=== PATIENT | male | born 1980 | race American Indian/Alaskan Native ===

== ENCOUNTER 2019-08-15 14:29 | Inpatient (IN) | payer OTHER ==
[2019-08-15 15:35] LABS: Basophils % (Auto) 0.1 % (0.0-1.8); Hemoglobin 15.4 gm/dl (11.8-15.2); Lymphocytes # (Auto) 0.8 K/mm3 (1.2-5.4); Lymphocytes % (Auto) 6.3 % (13.4-35.0); Mean Corpuscular HGB Conc 33 % (32-34); Mean Corpuscular Volume 92 fl (84-94); Monocytes # (Auto) 0.7 K/mm3 (0.0-0.8); Monocytes % (Auto) 5.5 % (0.0-7.3); Platelet Count 242 K/mm3 (140-440); Red Blood Count 5.12 M/mm3 (3.65-5.03); Red Cell Distribution Width 15.5 % (13.2-15.2)
[2019-08-15 15:49] LABS: Calcium 8.6 mg/dL (8.4-10.2)
[2019-08-15] MEDS ORDERED: SODIUM CHLORIDE 0.9% 1000 ML IV SOLN IV ONE (16:06)
[2019-08-15] MEDS ORDERED: ONDANSETRON 4 MG/2 ML INJ IV ONE (16:09)
[2019-08-15] MEDS ORDERED: MORPHINE 4 MG/1 ML INJ IV ONE (16:09)
[2019-08-15] MEDS ORDERED: INSULIN REGULAR, HUMAN 100 UNITS/1 ML IV ONE (16:10)
[2019-08-15] MEDS ORDERED: DEXTROSE 50% IN WATER (25GM) 50 ML SYRINGE IV PRN (16:10)
--- NOTE | 2019-08-15 16:20 | Emergency Department Report ---
ED General Adult HPI - General Chief complaint: Abdominal Pain Stated complaint: ABD PAIN Time Seen by Provider: 08/15/19 15:54 Source: patient, RN notes reviewed Mode of arrival: Ambulatory Limitations: No Limitations - History of Present Illness Initial comments: This is a 38-year-old gentleman. This patient is not known to this provider previously. He is visiting from [place]. He has a history of hypertension and high cholesterol. No history of abdominal surgeries. He presents to the ER with a complaint of diffuse abdominal pain, abdominal distention, malaise and fatigue. Symptoms started 3-4 days ago. The abdominal pain started in the suprapubic region, then moved the bilateral lower quadrant, epigastric region, and right upper quadrant. He denies headache and neck pain. He has no complaint of chest pain. He endorses abdominal distention, and shortness of breath secondary to abdominal distention. He also endorses hematuria. He denies testicular pain. He denies focal extremity weakness and/or numbness. He's never had anything like this before as far as he is aware. -: Gradual Location: abdomen Radiation: abdomen Quality: aching Consistency: constant Improves with: medication, rest Worsens with: movement - Related Data Allergies Allergy/AdvReac Type Severity Reaction Status Date / Time No Known Allergies Allergy Unverified 08/15/19 14:45 ED Review of Systems ROS: Stated complaint: ABD PAIN Other details as noted in HPI Constitutional: malaise, weakness Eyes: denies: eye discharge ENT: denies: congestion Respiratory: shortness of breath Cardiovascular: denies: syncope Gastrointestinal: abdominal pain, other Genitourinary: denies: dysuria, testicular pain Musculoskeletal: denies: back pain Skin: denies: lesions Neurological: weakness Psychiatric: anxiety Hematological/Lymphatic: denies: easy bleeding ED Past Medical Hx - Past Medical History Hx Hypertension: Yes - Surgical History Past Surgical History?: Yes Additional Surgical History: back surgery x 2 - Social History Smoking Status: Never Smoker Substance Use Type: Alcohol ED Physical Exam - General Limitations: No Limitations General appearance: alert, anxious, obese - Head Head exam: Present: atraumatic, normocephalic - Eye Eye exam: Present: normal appearance, EOMI. Absent: nystagmus - ENT ENT exam: Present: normal orophraynx, mucous membranes dry, normal external ear exam - Neck Neck exam: Present: normal inspection, full ROM. Absent: tenderness, meningismus - Respiratory Respiratory exam: Present: normal lung sounds bilaterally. Absent: respiratory distress - Cardiovascular Cardiovascular Exam: Present: normal rhythm, tachycardia, normal heart sounds. Absent: systolic murmur, diastolic murmur, rubs, gallop - GI/Abdominal GI/Abdominal exam: Present: soft, distended, tenderness. Absent: guarding, rebo und, rigid, pulsatile mass - Rectal Rectal exam: Present: deferred - Extremities Exam Extremities exam: Present: normal inspection, full ROM, other (2+ pulses noted in the bilateral upper and lower extremities. The pelvis is stable. There is no long bony tenderness. The muscular compartments are soft. There is no red ness, pus, streaking or erythema.). Absent: pedal edema, calf tenderness - Back Exam Back exam: Present: normal inspection. Absent: tenderness, CVA tenderness (R), CVA tenderness (L), paraspinal tenderness, vertebral tenderness - Neurological Exam Neurological exam: Present: alert, oriented X3, normal gait, other (there is no facial droop. The tongue is midline. Extraocular movements are intact bilaterally. Speaking in full sentences. Hearing is grossly intact. 5 out of 5 strength bilateral upper and lower extremities. Sensation is intact to light touch bilateral upper and lower extremities.). Absent: motor sensory deficit - Psychiatric Psychiatric exam: Present: anxious - Skin Skin exam: Present: warm, dry, intact, normal color. Absent: rash ED Course Vital Signs 08/15/19 14:45 Temperature 98.2 F Pulse Rate 158 H Respiratory 18 Rate Blood Pressure 140/96 O2 Sat by Pulse 97 Oximetry - Reevaluation(s) Reevaluation #1: 08/15/19 16:19 Differential diagnoses, including but not limited to: Cholangitis, pancreatitis, gallstone pancreatitis, diabetic ketoacidosis, renal insufficiency, prerenal azotemia, intra-abdominal sepsis Assessment and plan: 38-year-old gentleman with abdominal pain, distention, tachycardia, found to have renal insufficiency, pancreatitis, diabetic ketoacidosis, an elevated bilirubin. Patient be resuscitated according to the sepsis and DKA pathway. Right upper quadrant ultrasound ordered, noncontrast CT scan of abdomen and pelvis ordered, insulin, fluids, antibiotics ordered. GI consultation is requested, discussed with Dr. Savage repeat ekg pending Reevaluation #2: 08/15/19 17:07 Repeat EKG suggests sinus tachycardia. Reevaluation #3: 08/15/19 18:12 Ultrasound negative for acute findings. CT scan suggests pancreatitis. Fluid is appreciated, consistent with pancreatitis, there is no evidence of necrotizing process. It appears that the patient is also an alcoholic, therefore, his tachycardia may be multifactorial, including secondary to volume depletion, as well as alcohol withdrawal. Gastroenterology on-call is updated with imaging findings. Hospital physician, Dr. Burgess to admit patient to the medical service. ED Medical Decision Making - Lab Data Result diagrams: 08/15/19 15:23 08/15/19 16:15 Vital Signs 08/15/19 14:45 Temperature 98.2 F Pulse Rate 158 H Respiratory 18 Rate Blood Pressure 140/96 O2 Sat by Pulse 97 Oximetry Lab Results 08/15/19 08/15/19 08/15/19 Range/Units 15:23 15:23 15:23 WBC 13.4 H (4.5-11.0) K/mm3 RBC 5.12 H (3.65-5.03) M/mm3 Hgb 15.4 H (11.8-15.2) gm/dl Hct 47.0 H (35.5-45.6) % MCV 92 (84-94) fl MCH 30 (28-32) pg MCHC 33 (32-34) % RDW 15.5 H (13.2-15.2) % Plt Count 242 (140-440) K/mm3 Lymph % (Auto) 6.3 L (13.4-35.0) % [place] % (Auto) 5.5 (0.0-7.3) % Eos % (Auto) 0.0 (0.0-4.3) % Baso % (Auto) 0.1 (0.0-1.8) % Lymph # 0.8 L (1.2-5.4) K/mm3 [place] # 0.7 (0.0-0.8) K/mm3 Eos # 0.0 (0.0-0.4) K/mm3 Baso # 0.0 (0.0-0.1) K/mm3 Seg Neutrophils % 88.1 H (40.0-70.0) % Seg Neutrophils # 11.8 H (1.8-7.7) K/mm3 Sodium 127 L (137-145) mmol/L Potassium 4.7 (3.6-5.0) mmol/L Chloride 90.5 L (98-107) mmol/L Carbon Dioxide 17 L (22-30) mmol/L Anion Gap 24 mmol/L BUN 25 H (9-20) mg/dL Creatinine 1.7 H (0.8-1.5) mg/dL Estimated GFR 45 ml/min BUN/Creatinine Ratio 15 % Glucose 533 H* (75-100) mg/dL Calcium 8.6 (8.4-10.2) mg/dL Total Bilirubin 2.70 H (0.1-1.2) mg/dL AST 69 H (5-40) units/L ALT 17 (7-56) units/L Alkaline Phosphatase 66 (35-129) units/L Troponin T < 0.010 (0.00-0.029) ng/mL Total Protein 7.8 (6.3-8.2) g/dL Albumin 4.0 (3.9-5) g/dL Albumin/Globulin Ratio 1.1 % Lipase 580 H (13-60) units/L - EKG Data -: EKG Interpreted by Me Rate: tachycardia - EKG Data When compared to previous EKG there are: previous EKG unavailable 08/15/19 16:18 There is no prior EKG available for comparison. The EKG is a narrow complex, tachycardic rhythm, with a left axis deviation, motion artifact, left ventricular hypertrophy. Clinically the patient auscultates as if he were in sinus rhythm, but looking at the EKG, uncertain if this is sinus tachycardia, A. fib versus flutter. We will repeat the EKG. - Radiology Data Radiology results: pending, report reviewed, image reviewed interpreted by me: X-ray chest shows no acute intrathoracic pathology. Question elevated right hemidiaphragm. Print Report Referring Physician: WES ARGUELLES Patient Name: TONI JACOBS Date of : 1980 Sex: Male Report Date: 2019-08-15 Report Status: Finalized Findings [facility] [address] [place] [address] Ultrasound Report Signed Patient: TONI JACOBS MR#: [id number] : 1980 Acct:[id number] Age/Sex: 38 / M ADM Date: 08/15/19 Loc: ED Attending Dr: Ordering Physician: WES ARGUELLES MD Date of Service: 08/15/19 Procedure(s): US abdomen limited Accession Number(s): [id number] cc: WES ARGUELLES MD ULTRASOUND ABDOMEN, LIMITED (RIGHT UPPER QUADRANT) INDICATION: abd pain choleangitis. COMPARISON: None available. FINDINGS: Pancreas: Visualized portion shows no significant abnormality. Liver: Large measuring 19.5 cm and heterogeneous. No discrete lesion. Gallbladder: Normal. Bile ducts: Normal. Common Bile Duct measures 3.8 mm. Free fluid: None. Additional Findings: None. IMPRESSION: 1. No gallstones or biliary dilatation. 2. Large heterogeneous liver likely due to fatty infiltration. Signer Name: Noble Garcia MD Signed: 08/15/2019 5:07 PM Workstation Name: [email or web address] Transcribed By: ES Dictated By: Noble Garcia MD Electronically Authenticated By: Noble Garcia MD Signed Date/Time: 08/15/19 1707 \ vPrint Report Referring Physician: WES ARGUELLES Patient Name: TONI JACOBS Date of : 1980 Sex: Male Report Date: 2019-08-15 Report Status: Finalized Findings [facility] [address] [place] [address] XRay Report Signed Patient: TONI JACOBS MR#: [id number] : 1980 Acct:[id number] Age/Sex: 38 / M ADM Date: 08/15/19 Loc: ED Attending Dr: Ordering Physician: WES ARGUELLES MD Date of Service: 08/15/19 Procedure(s): XR chest routine 2V Accession Number(s): [id number] cc: WES ARGUELLES MD Fluoro Time In Minutes: CHEST 2 VIEWS INDICATION: Chest Pain. COMPARISON: None. FINDINGS: Support devices: None. Heart: Within normal limits. Lungs/Pleura: No acute air space or interstitial disease. No significant pleural effusion. IMPRESSION: No acute findings. Signer Name: Noble Garcia MD Signed: 08/15/2019 4:29 PM Workstation Name: [id number] Transcribed By: ES Dictated By: Noble Garcia MD Electronically Authenticated By: Noble Garcia MD Signed Date/Time: 08/15/191628 DD/ 28 TD/TT: Print Report Referring Physician: WES ARGUELLES Patient Name: TONI JACOBS Date of : 1980 Sex: Male Report Date: 2019-08-15 Report Status: Finalized Findings [facility] [address] [place] [address] Cat Scan Report Signed Patient: TONI JACOBS MR#: [id number] : 1980 Acct:[id number] Age/Sex: 38 / M ADM Date: 08/15/19 Loc: ED Attending Dr: Ordering Physician: WES ARGUELLES MD Date of Service: 08/15/19 Procedure(s): CT abdomen pelvis wo con Accession Number(s): [id number] cc: WES ARGUELLES MD CT abdomen pelvis wo con INDICATION: abd pain sepsis. TECHNIQUE: All CT scans at this location are performed using the following dose modulation technique: Automated exposure control. CONTRAST: None. COMPARISON: None available. CT ABDOMEN: Small basilar effusions left greater than right with associated atelectasis. The pancreas is diffusely thickened and demonstrates moderate adjacent inflammation which tracks into the adjacent mesentery greater at the tail and also tracks along the posterior fascial planes left greater than right. There is also extension of fluid/inflammation adjacent to the spleen. No well-formed collection is present. Negative for abdominal mass or adenopathy. The bowel is not dilated or thickened. Mild fluid is seen adjacent to the liver. CT PELVIS: Fluid tracks along the fascial planes of the retroperitoneum. Mild pelvic free fluid is also present. Negative for mass or localized fluid collection IMPRESSION: 1. Relatively severe pancreatitis with adjacent fluid/inflammation. 2. Small basilar effusions left greater than right with associated atelectasis. 3. Mild free fluid. Signer Name: Noble Garcia MD Signed: 08/15/2019 5:49 PM Workstation Name: [id number] Transcribed By: ES Dictated By: Noble Garcia MD Electronically Authenticated By: Noble Garcia MD Signed Date/Time: 08/15/191748 DD/ 42 Critical Care Time: Yes Critical care time in (mins) excluding proc time.: 60 Critical care attestation.: If time is entered above; I have spent that time in minutes in the direct care of this critically ill patient, excluding procedure time. ED Disposition Clinical Impression: DKA (diabetic ketoacidoses), ERINN (acute kidney injury), Alcohol abuse, Abnormal liver enzymes, SIRS (systemic inflammatory response syndrome) Disposition: DC-09 OP ADMIT IP TO THIS HOSP Is pt being admited?: Yes Condition: Serious Instructions: Diabetic Ketoacidosis (ED)
--- NOTE | 2019-08-15 16:34 | XRay Report ---
CHEST 2 VIEWS INDICATION: Chest Pain. COMPARISON: None. FINDINGS: Support devices: None. Heart: Within normal limits. Lungs/Pleura: No acute air space or interstitial disease. No significant pleural effusion. IMPRESSION: No acute findings. Signer Name: Noble Garcia MD Signed: 08/15/2019 4:29 PM Workstation Name: [id number]
[2019-08-15] MEDS ORDERED: LORazepam 2 MG/ML VIAL IV PRN (16:35)
[2019-08-15] MEDS ORDERED: LORazepam 2 MG/ML VIAL IV STA (16:36)
[2019-08-15 16:42] LABS: Color,Urine Amber (Yellow)
[2019-08-15 16:43] LABS: Bilirubin,Urine NEG (Negative); Blood,Urine LG (Negative); Hyaline Casts,Urine 3 /LPF; Mucus,Urine FEW /HPF; Urobilinogen,Urine < 2.0 mg/dL (<2.0)
[2019-08-15 16:45] LABS: Bilirubin,Direct 0.8 mg/dL (0-0.2)
[2019-08-15 16:46] LABS: INR 1.14 (0.87-1.13)
[2019-08-15 16:47] LABS: Partial Thromboplastin Time 26.3 Sec. (24.2-36.6)
--- NOTE | 2019-08-15 16:52 | Gastroenterology Consultation ---
History of Present Illness - Reason for Consult Consult date: 08/15/19 elevated LFT Requesting physician: WES ARGUELLES - History of Present Illness This is a pleasant 38-year-old gentleman visiting from [place] who presents with abdominal pain and malaise. He reports that symptoms began on Tuesday. He reports currently with upper/epigastric abdominal pain that is sharp, severe, constant, worsening, duration 3 days, worse with nothing better with nothing, no radiation, associated with nausea but no vomiting patient is constipated no diarrhea He reports never having had symptoms like this in the past He does of note have abnormal liver enzymes He reports drinking approximately 1 red Solo cup of vodka most days of the week and approximately 2 on weekends home meds updated and reconciled and reviewed Past History Past Medical History: hypertension, hyperlipidemia Past Surgical History: Other (back) Social history: alcohol abuse Family history: no significant family history Medications and Allergies Allergies Allergy/AdvReac Type Severity Reaction Status Date / Time No Known Allergies Allergy Unverified 08/15/19 14:45 Active Meds: Active Medications Dextrose (D50w (25gm) Syringe) 0 ml IV Q30MIN PRN; Protocol PRN Reason: Hypoglycemia Piperacillin Sod/Tazobactam Sod (Zosyn/Ns 4.5gm/100ml) 4.5 gm in 100 mls @ 200 mls/hr IV NOW LUZ; Protocol Metronidazole (Flagyl 500 Mg/100 Ml) 500 mg in 100 mls @ 100 mls/hr IV NOW LUZ; Protocol Insulin Human Regular 100 (units/ Sodium Chloride) 100 mls @ 1 mls/hr IV TITR LUZ; Protocol Potassium Chloride/Dextrose/Sod Cl (D5w/0.45% Nacl/Kcl 20 Meq) 20 meq in 1,000 mls @ 125 mls/hr IV DIRECT LUZ Lorazepam (Ativan) 2 mg IV Q1HR PRN PRN Reason: CIWA-Ar 8-15 Lorazepam (Ativan) 4 mg IV Q1HR PRN PRN Reason: CIWA-Ar 16-25 Lorazepam (Ativan) 4 mg IV Q15MIN PRN PRN Reason: CIWA-Ar >25 Sodium Chloride (Sodium Chloride Flush Syringe 10 Ml) 10 ml IV PRN NR Stop: 08/15/19 23:59 Review of Systems - Review of Systems All systems: negative (10 system reviewed and negative except as mentioned above in history of present illness) Exam - Constitutional Vital Signs: Temp Pulse Resp BP Pulse Ox 98.2 F 158 H 18 140/96 97 08/15/19 14:45 08/15/19 14:45 08/15/19 14:45 08/15/19 14:45 08/15/19 14:45 General appearance: no acute distress - EENT Eyes: EOM intact ENT: hearing intact - Neck Neck: supple - Respiratory Respiratory effort: normal - Cardiovascular Rhythm: regular - Gastrointestinal General gastrointestinal: Present: soft, tender, normal bowel sounds - Integumentary Integumentary: Present: dry - Neurologic Neurological: alert and oriented x3 - Psychiatric Psychiatric: appropriate mood/affect - Labs CBC & Chem 7: 08/15/19 15:23 08/15/19 16:15 Lab Results: Laboratory Results - last 24 hr 08/15/19 08/15/19 08/15/19 15:23 15:23 15:23 WBC 13.4 H RBC 5.12 H Hgb 15.4 H Hct 47.0 H MCV 92 MCH 30 MCHC 33 RDW 15.5 H Plt Count 242 Lymph % (Auto) 6.3 L [place] % (Auto) 5.5 Eos % (Auto) 0.0 Baso % (Auto) 0.1 Lymph # 0.8 L [place] # 0.7 Eos # 0.0 Baso # 0.0 Seg Neutrophils % 88.1 H Seg Neutrophils # 11.8 H PT INR APTT VBG pH Sodium 127 L Potassium 4.7 Chloride 90.5 L Carbon Dioxide 17 L Anion Gap 24 BUN 25 H Creatinine 1.7 H Estimated GFR 45 BUN/Creatinine Ratio 15 Glucose 533 H* Calcium 8.6 Magnesium Total Bilirubin 2.70 H Direct Bilirubin Indirect Bilirubin AST 69 H ALT 17 Alkaline Phosphatase 66 Total Creatine Kinase Troponin T < 0.010 Total Protein 7.8 Albumin 4.0 Albumin/Globulin Ratio 1.1 Lipase 580 H Urine Color Urine Turbidity Urine pH Ur Specific [place] Urine Protein Urine Glucose (UA) Urine Ketones Urine Blood Urine Nitrite Urine Bilirubin Urine Urobilinogen Ur Leukocyte Esterase Urine WBC (Auto) Urine RBC (Auto) U Epithel Cells (Auto) Hyaline Casts Urine Mucus 08/15/19 08/15/19 08/15/19 16:00 16:10 16:10 WBC RBC Hgb Hct MCV MCH MCHC RDW Plt Count Lymph % (Auto) [place] % (Auto) Eos % (Auto) Baso % (Auto) Lymph # [place] # Eos # Baso # Seg Neutrophils % Seg Neutrophils # PT 14.8 INR 1.14 H APTT 26.3 VBG pH Sodium Potassium Chloride Carbon Dioxide Anion Gap BUN Creatinine Estimated GFR BUN/Creatinine Ratio Glucose Calcium Magnesium 2.60 H Total Bilirubin 2.60 H Direct Bilirubin 0.8 H Indirect Bilirubin 1.8 AST ALT Alkaline Phosphatase Total Creatine Kinase 517 H Troponin T Total Protein Albumin Albumin/Globulin Ratio Lipase Urine Color [place] Urine Turbidity Slightly-cloudy Urine pH 5.0 Ur Specific [place] 1.027 Urine Protein 100 mg/dl Urine Glucose (UA) >=500 Urine Ketones Neg Urine Blood Lg Urine Nitrite Neg Urine Bilirubin Neg Urine Urobilinogen < 2.0 Ur Leukocyte Esterase Neg Urine WBC (Auto) 17.0 H Urine RBC (Auto) 43.0 U Epithel Cells (Auto) 2.0 Hyaline Casts 3 Urine Mucus Few 08/15/19 16:15 WBC RBC Hgb Hct MCV MCH MCHC RDW Plt Count Lymph % (Auto) [place] % (Auto) Eos % (Auto) Baso % (Auto) Lymph # [place] # Eos # Baso # Seg Neutrophils % Seg Neutrophils # PT INR APTT VBG pH 7.423 H Sodium Potassium Chloride Carbon Dioxide Anion Gap BUN Creatinine Estimated GFR BUN/Creatinine Ratio Glucose Calcium Magnesium Total Bilirubin Direct Bilirubin Indirect Bilirubin AST ALT Alkaline Phosphatase Total Creatine Kinase Troponin T Total Protein Albumin Albumin/Globulin Ratio Lipase Urine Color Urine Turbidity Urine pH Ur Specific [place] Urine Protein Urine Glucose (UA) Urine Ketones Urine Blood Urine Nitrite Urine Bilirubin Urine Urobilinogen Ur Leukocyte Esterase Urine WBC (Auto) Urine RBC (Auto) U Epithel Cells (Auto) Hyaline Casts Urine Mucus Assessment and Plan Awaiting ultrasound results, however suspect alcohol abuse and moonshine consumption as the sources of the patient's elevated liver enzymes and suspect he has gastritis/peptic ulcer disease as a source of his upper GI symptoms. However, the rest of the differential diagnosis does include choledocholithiasis etc. reviewed with the patient the importance of alcohol cessation PPI and carafate for suspected gastritis/PUD - Patient Problems (1) Upper abdominal pain Status: Acute (2) Alcohol abuse Status: Acute (3) Abnormal liver enzymes Status: Acute
[2019-08-15] MEDS ORDERED: INSULIN REGULAR, HUMAN 100 UNITS in SODIUM CHLORIDE 0.9% 99 ML IV SCH (17:00)
[2019-08-15] MEDS ORDERED: metroNIDAZOLE/NS 500 MG/100 ML 500 MG/100 ML BAG IV SCH (17:00)
[2019-08-15] MEDS ORDERED: PIPERACIL/TAZOBACTA 4.5/NS 100 4.5 GM/100 ML VIAL IV SCH (17:00)
[2019-08-15 17:04] LABS: Calcium 8.3 mg/dL (8.4-10.2)
--- NOTE | 2019-08-15 17:11 | Ultrasound Report ---
ULTRASOUND ABDOMEN, LIMITED (RIGHT UPPER QUADRANT) INDICATION: abd pain choleangitis. COMPARISON: None available. FINDINGS: Pancreas: Visualized portion shows no significant abnormality. Liver: Large measuring 19.5 cm and heterogeneous. No discrete lesion. Gallbladder: Normal. Bile ducts: Normal. Common Bile Duct measures 3.8 mm. Free fluid: None. Additional Findings: None. IMPRESSION: 1. No gallstones or biliary dilatation. 2. Large heterogeneous liver likely due to fatty infiltration. Signer Name: Noble Garcia MD Signed: 08/15/2019 5:07 PM Workstation Name: [id number]
--- NOTE | 2019-08-15 17:54 | Cat Scan Report ---
CT abdomen pelvis wo con INDICATION: abd pain sepsis. TECHNIQUE: All CT scans at this location are performed using the following dose modulation technique: Automated exposure control. CONTRAST: None. COMPARISON: None available. CT ABDOMEN: Small basilar effusions left greater than right with associated atelectasis. The pancreas is diffusely thickened and demonstrates moderate adjacent inflammation which tracks into the adjacent mesentery greater at the tail and also tracks along the posterior fascial planes left g reater than right. There is also extension of fluid/inflammation adjacent to the spleen. No well-form ed collection is present. Negative for abdominal mass or adenopathy. The bowel is not dilated or thickened. Mild fluid is seen adjacent to the liver. CT PELVIS: Fluid tracks along the fascial planes of the retroperitoneum. Mild pelvic free fluid is al so present. Negative for mass or localized fluid collection IMPRESSION: 1. Relatively severe pancreatitis with adjacent fluid/inflammation. 2. Small basilar effusions left greater than right with associated atelectasis. 3. Mild free fluid. Signer Name: Noble Garcia MD Signed: 08/15/2019 5:49 PM Workstation Name: [id number]
--- NOTE | 2019-08-15 18:13 | History and Physical Report ---
History of Present Illness Chief complaint: I just feel sick History of present illness: 38-year-old male with hypertension, obesity hypoventilation syndrome, alcohol dependence presents to emergency department for evaluation. Patient states that he has experienced abdominal pain over the past 3 to 4 days. Patient states that his pain is constant and is localized to the lower region of his abdomen. Patient also acknowledges polydipsia, polyuria, and polyphagia. Patient states that he drinks vodka daily and that his last drink of vodka was 2 days ago. Patient transported to ED via private vehicle. Patient seen and evaluated in the emergency department. Patient labs and imaging studies were reviewed. Patient was found to have diabetic ketoacidosis with concomitant metabolic acidosis as well as systemic inflammatory response syndrome, and acute kidney injury, and alcoholic pancreatitis. Patient admitted to IM and initiated on DKA protocol. Patient admitted for medical stabilization due to high likelihood of worsening symptoms and decompensation. GI team consulted in the emergency department. Patient denies fever, chills, chest pain, palpitations, syncope, trauma, unilateral leg swelling, prolonged travel, individual/family history of DVT, PE, bleeding or blood clotting disorders. No prior admission for review. No medication listed at time of admission for reconciliation. Past History Past Medical History: hypertension, hyperlipidemia Past Surgical History: Other (back) Social history: alcohol abuse Family history: no significant family history Medications and Allergies Allergies Allergy/AdvReac Type Severity Reaction Status Date / Time No Known Allergies Allergy Unverified 08/15/19 14:45 Active Meds: Active Medications Dextrose (D50w (25gm) Syringe) 0 ml IV Q30MIN PRN; Protocol PRN Reason: Hypoglycemia Piperacillin Sod/Tazobactam Sod (Zosyn/Ns 4.5gm/100ml) 4.5 gm in 100 mls @ 200 mls/hr IV NOW LUZ; Protocol Last Admin: 08/15/19 17:58 Dose: 200 mls/hr Documented by: Metronidazole (Flagyl 500 Mg/100 Ml) 500 mg in 100 mls @ 100 mls/hr IV NOW LUZ; Protocol Last Admin: 08/15/19 17:05 Dose: 100 mls/hr Documented by: Insulin Human Regular 100 (units/ Sodium Chloride) 100 mls @ 1 mls/hr IV TITR LUZ; Protocol Last Admin: 08/15/19 18:01 Dose: 6 units/hr, 6 mls/hr Documented by: Potassium Chloride/Dextrose/Sod Cl (D5w/0.45% Nacl/Kcl 20 Meq) 20 meq in 1,000 mls @ 125 mls/hr IV DIRECT LUZ Lorazepam (Ativan) 2 mg IV Q1HR PRN PRN Reason: CIWA-Ar 8-15 Lorazepam (Ativan) 4 mg IV Q1HR PRN PRN Reason: CIWA-Ar 16-25 Lorazepam (Ativan) 4 mg IV Q15MIN PRN PRN Reason: CIWA-Ar >25 Pantoprazole Sodium (Protonix) 40 mg PO BID [facility] Sodium Chloride (Sodium Chloride Flush Syringe 10 Ml) 10 ml IV PRN NR Stop: 08/15/19 23:59 Sucralfate (Carafate) 1 gm PO ACHS [facility] Review of Systems Constitutional: no weight loss, no weight gain, no fever, no chills Ears, nose, mouth and throat: no ear pain, no ear discharge, no tinnitis, no nose pain Cardiovascular: no chest pain, no orthopnea, no palpitations, no edema, no syncope Respiratory: no cough, no cough with sputum, no hemoptysis, no shortness of breath Gastrointestinal: abdominal pain, nausea, vomiting, no constipation, no change in bowel habits, no hematemesis Genitourinary Male: no hematuria, no flank pain, no discharge Rectal: no pain, no incontinence, no bleeding Musculoskeletal: no neck stiffness, no neck pain, no shooting arm pain, no arm numbness/tingling, no shooting leg pain, no leg numbness/tingling Integumentary: no rash, no redness, no sores, no wounds, no boils Neurological: no head injury, no transient paralysis, no weakness, no numbness, no seizures, no tremors Psychiatric: no anxiety, no memory loss, no sleep disturbances, no hypersomnia, no change in appetite, no suicidal ideation Endocrine: polyphagia, excessive thirst, polydipsia, polyuria, nocturia, excessive sweating, high blood sugars, no cold intolerance, no heat intolerance, no flushing, no deepening of the voice, no thyroid mass, no palpatations Hematologic/Lymphatic: no easy bruising, no easy bleeding, no lymphadenopathy, no lymphedema Allergic/Immunologic: no urticaria, no allergic rhinitis, no wheezing, no persistent infections, no angioedema Exam - Constitutional Vitals: Temp Pulse Resp BP Pulse Ox 98.2 F 158 H 18 140/96 97 08/15/19 14:45 08/15/19 14:45 08/15/19 14:45 08/15/19 14:45 08/15/19 14:45 General appearance: Present: mild distress, obese - EENT Eyes: Present: PERRL ENT: hearing intact, clear oral mucosa - Neck Neck: Present: supple, normal ROM - Respiratory Respiratory effort: normal Respiratory: bilateral: CTA - Cardiovascular Rhythm: other (tachycardia) Heart Sounds: Present: S1 & S2. Absent: rub, click - Extremities Extremities: pulses symmetrical, No edema Peripheral Pulses: within normal limits - Abdominal General gastrointestinal: Present: soft, non-tender, non-distended, normal bowel sounds. Absent: hepatomegaly, splenomegaly, mass, hernia Male genitourinary: Present: normal - Integumentary Integumentary: Present: warm, clammy, decreased turgor - Musculoskeletal Musculoskeletal: generalized weakness - Psychiatric Psychiatric: appropriate mood/affect, intact judgment & insight - Neurologic Neurologic: CNII-XII intact, moves all extremities Results - Labs CBC & Chem 7: 08/15/19 15:23 08/15/19 18:04 Labs: Abnormal lab results 08/15/19 08/15/19 08/15/19 Range/Units 15:23 15:23 16:00 WBC 13.4 H (4.5-11.0) K/mm3 RBC 5.12 H (3.65-5.03) M/mm3 Hgb 15.4 H (11.8-15.2) gm/dl Hct 47.0 H (35.5-45.6) % RDW 15.5 H (13.2-15.2) % Lymph % (Auto) 6.3 L (13.4-35.0) % Lymph # 0.8 L (1.2-5.4) K/mm3 Seg Neutrophils % 88.1 H (40.0-70.0) % Seg Neutrophils # 11.8 H (1.8-7.7) K/mm3 INR (0.87-1.13) VBG pH (7.320-7.420) Sodium 127 L (137-145) mmol/L Chloride 90.5 L (98-107) mmol/L Carbon Dioxide 17 L (22-30) mmol/L BUN 25 H (9-20) mg/dL Creatinine 1.7 H (0.8-1.5) mg/dL Glucose 533 H* (75-100) mg/dL POC Glucose (70-105) Lactic Acid (0.7-2.0) mmol/L Calcium (8.4-10.2) mg/dL Magnesium (1.7-2.3) mg/dL Total Bilirubin 2.70 H (0.1-1.2) mg/dL Direct Bilirubin (0-0.2) mg/dL AST 69 H (5-40) units/L Total Creatine Kinase (55-170) units/L Lipase 580 H (13-60) units/L Urine WBC (Auto) 17.0 H (0.0-6.0) /HPF 08/15/19 08/15/19 08/15/19 Range/Units 16:10 16:10 16:10 WBC (4.5-11.0) K/mm3 RBC (3.65-5.03) M/mm3 Hgb (11.8-15.2) gm/dl Hct (35.5-45.6) % RDW (13.2-15.2) % Lymph % (Auto) (13.4-35.0) % Lymph # (1.2-5.4) K/mm3 Seg Neutrophils % (40.0-70.0) % Seg Neutrophils # (1.8-7.7) K/mm3 INR 1.14 H (0.87-1.13) VBG pH (7.320-7.420) Sodium (137-145) mmol/L Chloride (98-107) mmol/L Carbon Dioxide (22-30) mmol/L BUN (9-20) mg/dL Creatinine (0.8-1.5) mg/dL Glucose (75-100) mg/dL POC Glucose (70-105) Lactic Acid 3.30 H* (0.7-2.0) mmol/L Calcium (8.4-10.2) mg/dL Magnesium 2.60 H (1.7-2.3) mg/dL Total Bilirubin 2.60 H (0.1-1.2) mg/dL Direct Bilirubin 0.8 H (0-0.2) mg/dL AST (5-40) units/L Total Creatine Kinase 517 H (55-170) units/L Lipase (13-60) units/L Urine WBC (Auto) (0.0-6.0) /HPF 08/15/19 08/15/19 08/15/19 Range/Units 16:15 16:15 18:05 WBC (4.5-11.0) K/mm3 RBC (3.65-5.03) M/mm3 Hgb (11.8-15.2) gm/dl Hct (35.5-45.6) % RDW (13.2-15.2) % Lymph % (Auto) (13.4-35.0) % Lymph # (1.2-5.4) K/mm3 Seg Neutrophils % (40.0-70.0) % Seg Neutrophils # (1.8-7.7) K/mm3 INR (0.87-1.13) VBG pH 7.423 H (7.320-7.420) Sodium 127 L (137-145) mmol/L Chloride 89.9 L (98-107) mmol/L Carbon Dioxide 13 L (22-30) mmol/L BUN 28 H (9-20) mg/dL Creatinine 1.7 H (0.8-1.5) mg/dL Glucose 531 H* (75-100) mg/dL POC Glucose 337 H (70-105) Lactic Acid (0.7-2.0) mmol/L Calcium 8.3 L (8.4-10.2) mg/dL Magnesium (1.7-2.3) mg/dL Total Bilirubin (0.1-1.2) mg/dL Direct Bilirubin (0-0.2) mg/dL AST (5-40) units/L Total Creatine Kinase (55-170) units/L Lipase (13-60) units/L Urine WBC (Auto) (0.0-6.0) /HPF Assessment and Plan - Patient Problems (1) DKA (diabetic ketoacidoses) Status: Acute Qualifiers: Diabetes mellitus type: type 1 Diabetes mellitus complication detail: without coma Qualified Code(s): E10.10 - Type 1 diabetes mellitus with ketoacidosis without coma Plan to address problem: DKA protocol: Insulin drip, IV fluid resuscitation therapy, serial BMP, monitor anion gap, monitor urine output every shift, monitor serial serum potassium level, replete potassium as per DKA protocol (2) Acidosis Status: Acute Plan to address problem: IV fluid resuscitation therapy, BMP, IV bicarbonate therapy, repeat BMP in a.m. (3) Alcoholic pancreatitis Status: Acute Qualifiers: Acute pancreatitis complication: no infection or necrosis Plan to address problem: Bowel rest, IV fluid resuscitation therapy, CT abdomen and pelvis, GI team consulted in ED (4) Alcohol abuse Status: Acute Plan to address problem: CIWA protocol, banana bag, IV fluid resuscitation therapy, behavior change couns eling +15 minutes (5) SIRS (systemic inflammatory response syndrome) Status: Acute Plan to address problem: Empiric IV antibiotic therapy, CBC, CMP, CT abdomen pelvis, chest x-ray, urinalysis. (6) Obesity hypoventilation syndrome Status: Acute Plan to address problem: Supplemental oxygen, nebulizer therapy, pulse oximetry, noninvasive positive pressure ventilation as clinically indicated. (7) DVT prophylaxis Status: Acute Plan to address problem: SCD to bilateral lower extremities while in bed, prophylactic heparin
[2019-08-15] MEDS ORDERED: ALBUTEROL 2.5 MG/3 ML NEBU IH PRN (18:14)
[2019-08-15] MEDS ORDERED: SODIUM BICARB 8.4% 50 MEQ/50 ML SYRINGE IV ONE (18:16)
[2019-08-15] MEDS ORDERED: THIAMINE 100 MG, FOLIC ACID 1 MG, MULTIPLE VITAMIN INJ, ADULT 10 ML in SODIUM CHLORIDE ... IV ONE (18:19)
[2019-08-15 18:29] LABS: Calcium 7.2 mg/dL (8.4-10.2)
[2019-08-15] MEDS ORDERED: SODIUM CHLORIDE 0.9% 1000 ML 1,000 ML IV SCH (18:30)
[2019-08-15] MEDS: LORazepam 2 MG/ML VIAL IV PRN ×2 (18:59→21:00)
[2019-08-15] MEDS ORDERED: SODIUM CHLORIDE 0.9% 1000 ML 1,000 ML ONE (20:05)
[2019-08-15] MEDS ORDERED: LORazepam 2 MG/ML VIAL ONE (20:05)
[2019-08-15] MEDS ORDERED: SODIUM CHLORIDE 0.9% 1000 ML 250 ML IV ONE (22:32)
[2019-08-15] MEDS ORDERED: PANTOPRAZOLE 40 MG INJ IV ONE (22:52)
[2019-08-15] MEDS ORDERED: SODIUM CHLORIDE 0.9% 250ML 250 ML ONE (22:53)
[2019-08-15] MEDS: SUCRALFATE 1 GM/10 ML ORAL LIQD PO SCH (23:08)
[2019-08-15] MEDS: HEPARIN 5,000 UNIT/1 ML VIAL SUB-Q SCH (23:08)
[2019-08-15] MEDS: PANTOPRAZOLE 40 MG TAB PO SCH (23:08)
[2019-08-15 23:14] LABS: BUN/Creatinine Ratio 15; Blood Urea Nitrogen 20 mg/dL (9-20); Calcium 7.3 mg/dL (8.4-10.2); Hemolysis Index 0
[2019-08-16] MEDS ORDERED: LORazepam 2 MG/ML VIAL ONE ×4 (00:15→23:14)
[2019-08-16] MEDS: LORazepam 2 MG/ML VIAL IV PRN ×4 (00:19→23:21)
[2019-08-16 02:33] LABS: BUN/Creatinine Ratio 16; Blood Urea Nitrogen 19 mg/dL (9-20); Calcium 7.4 mg/dL (8.4-10.2); Hemolysis Index 0
[2019-08-16] MEDS ORDERED: ACETAMINOPHEN 325 MG TAB PO ONE (03:51)
[2019-08-16] MEDS ORDERED: ACETAMINOPHEN 325 MG TAB ONE (03:59)
[2019-08-16] MEDS: SUCRALFATE 1 GM/10 ML ORAL LIQD PO SCH ×4 (11:30→21:41)
[2019-08-16] MEDS: PANTOPRAZOLE 40 MG TAB PO SCH ×2 (11:31→21:43)
[2019-08-16] MEDS ORDERED: HEPARIN 5,000 UNIT/1 ML VIAL ONE (11:35)
[2019-08-16] MEDS: HEPARIN 5,000 UNIT/1 ML VIAL SUB-Q SCH ×2 (11:39→21:42)
--- NOTE | 2019-08-16 12:13 | Progress Note ---
Assessment and Plan (1) DKA (diabetic ketoacidoses) Status: Acute Qualifiers: Diabetes mellitus type: type 1 Diabetes mellitus complication detail: without coma Qualified Code(s): E10.10 - Type 1 diabetes mellitus with ketoacidosis without coma Plan to address problem: DKA protocol: Insulin drip, IV fluid resuscitation therapy, serial BMP, monitor anion gap, monitor urine output every shift, monitor serial serum potassium level, replete potassium as per DKA protocol (2) Acidosis Status: Acute Plan to address problem: IV fluid resuscitation therapy, BMP, IV bicarbonate therapy, repeat BMP in a.m. (3) Alcoholic pancreatitis Status: Acute Qualifiers: Acute pancreatitis complication: no infection or necrosis Plan to address problem: Bowel rest, IV fluid resuscitation therapy, CT abdomen and pelvis, GI team consulted in ED Improving (4) Alcohol abuse Status: Acute Plan to address problem: CIWA protocol, banana bag, IV fluid resuscitation therapy, behavior change counseling +15 minutes (5) SIRS (systemic inflammatory response syndrome) Status: Acute Plan to address problem: Empiric IV antibiotic therapy, CBC, CMP, CT abdomen pelvis, chest x-ray, urinalysis. (6) Obesity hypoventilation syndrome Status: Acute Plan to address problem: Supplemental oxygen, nebulizer therapy, pulse oximetry, noninvasive positive pressure ventilation as clinically indicated. ( 7)ERINN IV fluids (8)Hematuria Urology consult (9) DVT prophylaxis Status: Acute Plan to address problem: SCD to bilateral lower extremities while in bed, prophylactic heparin Subjective Date of service: 08/16/19 Principal diagnosis: Hyperosmolar non ketotic state,ETOH dependence,Hematuria Interval history: 38-year-old male with hypertension, obesity hypoventilation syndrome, alcohol dependence presents to emergency department for evaluation. Patient states that he has experienced abdominal pain over the past 3 to 4 days. Patient states that his pain is constant and is localized to the lower region of his abdomen. Patient also acknowledges polydipsia, polyuria, and polyphagia. Patient states that he drinks vodka daily and that his last drink of vodka was 2 days ago. Patient transported to ED via private vehicle. Patient seen and evaluated in the emergency department. Patient labs and imaging studies were reviewed. Patient was found to have diabetic ketoacidosis with concomitant metabolic acidosis as well as systemic inflammatory response syndrome, and acute kidney injury, and alcoholic pancreatitis. Patient admitted to [facility] and initiated on DKA protocol. Patient admitted for medical stabilization due to high likelihood of worsening symptoms and decompensation. GI team consulted in the emergency department. Patient denies fever, chills, chest pain, palpitations, syncope, trauma, unilateral leg swelling, prolonged travel, individual/family history of DVT, PE, bleeding or blood clotting disorders. No prior admission for review. No medication listed at time of admission for reconciliation. C/o Hematuria Objective - Constitutional Vitals: Vital Signs - 12hr 08/16/19 08/16/19 08/16/19 00:15 00:31 00:45 Temperature Pulse Rate 135 H 139 H 136 H Respiratory 37 H 36 H 15 Rate Blood Pressure 114/90 141/104 141/104 Blood Pressure [Left] O2 Sat by Pulse 94 95 95 Oximetry 08/16/19 08/16/19 08/16/19 01:01 01:15 01:30 Temperature Pulse Rate 135 H 136 H 135 H Respiratory 49 H 25 H 34 H Rate Blood Pressure 138/92 138/92 132/96 Blood Pressure [Left] O2 Sat by Pulse 97 97 96 Oximetry 08/16/19 08/16/19 08/16/19 01:45 02:01 02:15 Temperature Pulse Rate 133 H 132 H 131 H Respiratory 31 H 31 H 31 H Rate Blood Pressure 132/96 140/94 140/94 Blood Pressure [Left] O2 Sat by Pulse 96 97 98 Oximetry 08/16/19 08/16/19 08/16/19 02:31 02:45 03:01 Temperature Pulse Rate 129 H 139 H 137 H Respiratory 29 H 36 H 29 H Rate Blood Pressure 116/89 130/82 144/91 Blood Pressure [Left] O2 Sat by Pulse 98 98 96 Oximetry 08/16/19 08/16/19 08/16/19 03:15 03:31 03:40 Temperature 100.5 F H Pulse Rate 138 H 136 H Respiratory 35 H 39 H Rate Blood Pressure 151/94 138/97 Blood Pressure [Left] O2 Sat by Pulse 94 97 Oximetry 08/16/19 08/16/19 08/16/19 03:45 04:00 04:15 Temperature Pulse Rate 134 H 137 H 137 H Respiratory 33 H 22 33 H Rate Blood Pressure 138/97 123/99 123/99 Blood Pressure [Left] O2 Sat by Pulse 96 97 97 Oximetry 08/16/19 08/16/1919 04:31 04:45 05:00 Temperature Pulse Rate 132 H 136 H 131 H Respiratory 32 H 25 H 27 H Rate Blood Pressure 130/50 125/63 129/85 Blood Pressure [Left] O2 Sat by Pulse 97 98 97 Oximetry 08/16/19 08/16/19 08/16/19 05:15 05:31 05:45 Temperature Pulse Rate 131 H 128 H 135 H Respiratory 31 H 29 H 37 H Rate Blood Pressure 139/92 110/87 110/87 Blood Pressure [Left] O2 Sat by Pulse 98 98 93 Oximetry 08/16/19 08/16/19 08/16/19 06:00 06:15 06:31 Temperature Pulse Rate 132 H 135 H 137 H Respiratory 34 H 32 H 39 H Rate Blood Pressure 141/101 125/76 142/85 Blood Pressure [Left] O2 Sat by Pulse 92 93 92 Oximetry 08/16/19 08/16/19 08/16/19 06:45 07:10 07:15 Temperature 99.4 F Pulse Rate 135 H 133 H 132 H Respiratory 30 H 29 H 36 H Rate Blood Pressure 128/95 141/94 Blood Pressure 135/96 [Left] O2 Sat by Pulse 93 97 96 Oximetry 08/16/19 08/16/19 08/16/19 08:15 08:31 09:00 Temperature Pulse Rate 130 H 127 H 141 H Respiratory 27 H 41 H 39 H Rate Blood Pressure 130/87 136/91 129/91 Blood Pressure [Left] O2 Sat by Pulse 96 93 Oximetry 08/16/19 08/16/19 08/16/19 09:15 09:45 10:05 Temperature Pulse Rate 134 H 133 H 135 H Respiratory 34 H 31 H 29 H Rate Blood Pressure 138/99 134/94 Blood Pressure 130/94 [Left] O2 Sat by Pulse 95 98 94 Oximetry 08/16/19 08/16/19 10:15 10:30 Temperature Pulse Rate 133 H 132 H Respiratory 35 H 29 H Rate Blood Pressure 135/90 133/101 Blood Pressure [Left] O2 Sat by Pulse 95 Oximetry General appearance: Present: no acute distress, well-nourished - EENT Eyes: PERRL, EOM intact ENT: hearing intact, clear oral mucosa Ears: bilateral: normal - Neck Neck: supple, normal ROM - Respiratory Respiratory effort: normal Respiratory: bilateral: CTA - Breasts Breasts: normal - Cardiovascular Heart rate: 78 Rhythm: regular Heart Sounds: Present: S1 & S2. Absent: gallop, rub Extremities: no ischemia, pulses intact, No edema, normal color, Full ROM - Gastrointestinal General gastrointestinal: Present: soft, non-tender, non-distended, normal bowel sounds - Genitourinary Male genitourinary: normal - Integumentary Integumentary: clear, warm, dry - Musculoskeletal Musculoskeletal: 1, strength equal bilaterally - Neurologic Neurologic: moves all extremities - Psychiatric Psychiatric: memory intact, appropriate mood/affect, intact judgment & insight - Allied health notes Allied health notes reviewed: nursing, case management - Labs CBC & Chem 7: 08/18/19 05:38 08/18/19 05:38 Labs: Abnormal lab results 08/15/19 08/15/19 08/15/19 Range/Units 15:23 15:23 16:00 WBC 13.4 H (4.5-11.0) K/mm3 RBC 5.12 H (3.65-5.03) M/mm3 Hgb 15.4 H (11.8-15.2) gm/dl Hct 47.0 H (35.5-45.6) % RDW 15.5 H (13.2-15.2) % Lymph % (Auto) 6.3 L (13.4-35.0) % Lymph # 0.8 L (1.2-5.4) K/mm3 Seg Neutrophils % 88.1 H (40.0-70.0) % Seg Neutrophils # 11.8 H (1.8-7.7) K/mm3 INR (0.87-1.13) VBG pH (7.320-7.420) Sodium 127 L (137-145) mmol/L Chloride 90.5 L (98-107) mmol/L Carbon Dioxide 17 L (22-30) mmol/L BUN 25 H (9-20) mg/dL Creatinine 1.7 H (0.8-1.5) mg/dL Glucose 533 H* (75-100) mg/dL POC Glucose (70-105) Lactic Acid (0.7-2.0) mmol/L Calcium (8.4-10.2) mg/dL Phosphorus (2.5-4.5) mg/dL Magnesium (1.7-2.3) mg/dL Total Bilirubin 2.70 H (0.1-1.2) mg/dL Direct Bilirubin (0-0.2) mg/dL AST 69 H (5-40) units/L Total Creatine Kinase (55-170) units/L Lipase 580 H (13-60) units/L Urine WBC (Auto) 17.0 H (0.0-6.0) /HPF 08/15/19 08/15/19 08/15/19 Range/Units 16:10 16:10 16:10 WBC (4.5-11.0) K/mm3 RBC (3.65-5.03) M/mm3 Hgb (11.8-15.2) gm/dl Hct (35.5-45.6) % RDW (13.2-15.2) % Lymph % (Auto) (13.4-35.0) % Lymph # (1.2-5.4) K/mm3 Seg Neutrophils % (40.0-70.0) % Seg Neutrophils # (1.8-7.7) K/mm3 INR 1.14 H (0.87-1.13) VBG pH (7.320-7.420) Sodium (137-145) mmol/L Chloride (98-107) mmol/L Carbon Dioxide (22-30) mmol/L BUN (9-20) mg/dL Creatinine (0.8-1.5) mg/dL Glucose (75-100) mg/dL POC Glucose (70-105) Lactic Acid 3.30 H* (0.7-2.0) mmol/L Calcium (8.4-10.2) mg/dL Phosphorus (2.5-4.5) mg/dL Magnesium 2.60 H (1.7-2.3) mg/dL Total Bilirubin 2.60 H (0.1-1.2) mg/dL Direct Bilirubin 0.8 H (0-0.2) mg/dL AST (5-40) units/L Total Creatine Kinase 517 H (55-170) units/L Lipase (13-60) units/L Urine WBC (Auto) (0.0-6.0) /HPF 08/15/19 08/15/19 08/15/19 Range/Units 16:15 16:15 18:04 WBC (4.5-11.0) K/mm3 RBC (3.65-5.03) M/mm3 Hgb (11.8-15.2) gm/dl Hct (35.5-45.6) % RDW (13.2-15.2) % Lymph % (Auto) (13.4-35.0) % Lymph # (1.2-5.4) K/mm3 Seg Neutrophils % (40.0-70.0) % Seg Neutrophils # (1.8-7.7) K/mm3 INR (0.87-1.13) VBG pH 7.423 H (7.320-7.420) Sodium 127 L 133 L (137-145) mmol/L Chloride 89.9 L (98-107) mmol/L Carbon Dioxide 13 L 17 L (22-30) mmol/L BUN 28 H 25 H (9-20) mg/dL Creatinine 1.7 H 1.6 H (0.8-1.5) mg/dL Glucose 531 H* 368 H (75-100) mg/dL POC Glucose (70-105) Lactic Acid (0.7-2.0) mmol/L Calcium 8.3 L 7.2 L (8.4-10.2) mg/dL Phosphorus (2.5-4.5) mg/dL Magnesium (1.7-2.3) mg/dL Total Bilirubin (0.1-1.2) mg/dL Direct Bilirubin (0-0.2) mg/dL AST (5-40) units/L Total Creatine Kinase (55-170) units/L Lipase (13-60) units/L Urine WBC (Auto) (0.0-6.0) /HPF 08/15/19 08/15/19 08/15/19 Range/Units 18:04 18:05 19:08 WBC (4.5-11.0) K/mm3 RBC (3.65-5.03) M/mm3 Hgb (11.8-15.2) gm/dl Hct (35.5-45.6) % RDW (13.2-15.2) % Lymph % (Auto) (13.4-35.0) % Lymph # (1.2-5.4) K/mm3 Seg Neutrophils % (40.0-70.0) % Seg Neutrophils # (1.8-7.7) K/mm3 INR (0.87-1.13) VBG pH (7.320-7.420) Sodium (137-145) mmol/L Chloride (98-107) mmol/L Carbon Dioxide (22-30) mmol/L BUN (9-20) mg/dL Creatinine (0.8-1.5) mg/dL Glucose (75-100) mg/dL POC Glucose 337 H 279 H (70-105) Lactic Acid 3.50 H* (0.7-2.0) mmol/L Calcium (8.4-10.2) mg/dL Phosphorus (2.5-4.5) mg/dL Magnesium (1.7-2.3) mg/dL Total Bilirubin (0.1-1.2) mg/dL Direct Bilirubin (0-0.2) mg/dL AST (5-40) units/L Total Creatine Kinase (55-170) units/L Lipase (13-60) units/L Urine WBC (Auto) (0.0-6.0) /HPF 08/15/19 08/15/19 08/15/19 Range/Units 20:27 21:34 22:19 WBC (4.5-11.0) K/mm3 RBC (3.65-5.03) M/mm3 Hgb (11.8-15.2) gm/dl Hct (35.5-45.6) % RDW (13.2-15.2) % Lymph % (Auto) (13.4-35.0) % Lymph # (1.2-5.4) K/mm3 Seg Neutrophils % (40.0-70.0) % Seg Neutrophils # (1.8-7.7) K/mm3 INR (0.87-1.13) VBG pH (7.320-7.420) Sodium (137-145) mmol/L Chloride (98-107) mmol/L Carbon Dioxide (22-30) mmol/L BUN (9-20) mg/dL Creatinine (0.8-1.5) mg/dL Glucose (75-100) mg/dL POC Glucose 242 H 250 H 223 H (70-105) Lactic Acid (0.7-2.0) mmol/L Calcium (8.4-10.2) mg/dL Phosphorus (2.5-4.5) mg/dL Magnesium (1.7-2.3) mg/dL Total Bilirubin (0.1-1.2) mg/dL Direct Bilirubin (0-0.2) mg/dL AST (5-40) units/L Total Creatine Kinase (55-170) units/L Lipase (13-60) units/L Urine WBC (Auto) (0.0-6.0) /HPF 08/15/19 08/15/19 08/15/19 Range/Units 22:38 22:38 23:18 WBC (4.5-11.0) K/mm3 RBC (3.65-5.03) M/mm3 Hgb (11.8-15.2) gm/dl Hct (35.5-45.6) % RDW (13.2-15.2) % Lymph % (Auto) (13.4-35.0) % Lymph # (1.2-5.4) K/mm3 Seg Neutrophils % (40.0-70.0) % Seg Neutrophils # (1.8-7.7) K/mm3 INR (0.87-1.13) VBG pH (7.320-7.420) Sodium (137-145) mmol/L Chloride (98-107) mmol/L Carbon Dioxide (22-30) mmol/L BUN (9-20) mg/dL Creatinine (0.8-1.5) mg/dL Glucose 191 H (75-100) mg/dL POC Glucose 172 H (70-105) Lactic Acid (0.7-2.0) mmol/L Calcium 7.3 L (8.4-10.2) mg/dL Phosphorus 1.70 L (2.5-4.5) mg/dL Magnesium 2.50 H (1.7-2.3) mg/dL Total Bilirubin (0.1-1.2) mg/dL Direct Bilirubin (0-0.2) mg/dL AST (5-40) units/L Total Creatine Kinase (55-170) units/L Lipase (13-60) units/L Urine WBC (Auto) (0.0-6.0) /HPF 08/16/19 08/16/19 08/16/19 Range/Units 00:12 01:33 01:48 WBC (4.5-11.0) K/mm3 RBC (3.65-5.03) M/mm3 Hgb (11.8-15.2) gm/dl Hct (35.5-45.6) % RDW (13.2-15.2) % Lymph % (Auto) (13.4-35.0) % Lymph # (1.2-5.4) K/mm3 Seg Neutrophils % (40.0-70.0) % Seg Neutrophils # (1.8-7.7) K/mm3 INR (0.87-1.13) VBG pH (7.320-7.420) Sodium (137-145) mmol/L Chloride 107.5 H (98-107) mmol/L Carbon Dioxide (22-30) mmol/L BUN (9-20) mg/dL Creatinine (0.8-1.5) mg/dL Glucose 168 H (75-100) mg/dL POC Glucose 156 H 157 H (70-105) Lactic Acid (0.7-2.0) mmol/L Calcium 7.4 L (8.4-10.2) mg/dL Phosphorus (2.5-4.5) mg/dL Magnesium (1.7-2.3) mg/dL Total Bilirubin (0.1-1.2) mg/dL Direct Bilirubin (0-0.2) mg/dL AST (5-40) units/L Total Creatine Kinase (55-170) units/L Lipase (13-60) units/L Urine WBC (Auto) (0.0-6.0) /HPF 08/16/19 08/16/19 08/16/19 Range/Units 02:35 03:39 04:42 WBC (4.5-11.0) K/mm3 RBC (3.65-5.03) M/mm3 Hgb (11.8-15.2) gm/dl Hct (35.5-45.6) % RDW (13.2-15.2) % Lymph % (Auto) (13.4-35.0) % Lymph # (1.2-5.4) K/mm3 Seg Neutrophils % (40.0-70.0) % Seg Neutrophils # (1.8-7.7) K/mm3 INR (0.87-1.13) VBG pH (7.320-7.420) Sodium (137-145) mmol/L Chloride (98-107) mmol/L Carbon Dioxide (22-30) mmol/L BUN (9-20) mg/dL Creatinine (0.8-1.5) mg/dL Glucose (75-100) mg/dL POC Glucose 187 H 147 H 146 H (70-105) Lactic Acid (0.7-2.0) mmol/L Calcium (8.4-10.2) mg/dL Phosphorus (2.5-4.5) mg/dL Magnesium (1.7-2.3) mg/dL Total Bilirubin (0.1-1.2) mg/dL Direct Bilirubin (0-0.2) mg/dL AST (5-40) units/L Total Creatine Kinase (55-170) units/L Lipase (13-60) units/L Urine WBC (Auto) (0.0-6.0) /HPF 08/16/19 08/16/19 08/16/19 Range/Units 05:32 05:43 06:32 WBC (4.5-11.0) K/mm3 RBC (3.65-5.03) M/mm3 Hgb (11.8-15.2) gm/dl Hct (35.5-45.6) % RDW (13.2-15.2) % Lymph % (Auto) (13.4-35.0) % Lymph # (1.2-5.4) K/mm3 Seg Neutrophils % (40.0-70.0) % Seg Neutrophils # (1.8-7.7) K/mm3 INR (0.87-1.13) VBG pH (7.320-7.420) Sodium (137-145) mmol/L Chloride (98-107) mmol/L Carbon Dioxide (22-30) mmol/L BUN (9-20) mg/dL Creatinine (0.8-1.5) mg/dL Glucose (75-100) mg/dL POC Glucose 164 H 132 H (70-105) Lactic Acid (0.7-2.0) mmol/L Calcium (8.4-10.2) mg/dL Phosphorus (2.5-4.5) mg/dL Magnesium (1.7-2.3) mg/dL Total Bilirubin (0.1-1.2) mg/dL Direct Bilirubin (0-0.2) mg/dL AST (5-40) units/L Total Creatine Kinase (55-170) units/L Lipase 291 H (13-60) units/L Urine WBC (Auto) (0.0-6.0) /HPF 08/16/19 08/16/19 08/16/19 Range/Units 08:37 10:33 11:59 WBC (4.5-11.0) K/mm3 RBC (3.65-5.03) M/mm3 Hgb (11.8-15.2) gm/dl Hct (35.5-45.6) % RDW (13.2-15.2) % Lymph % (Auto) (13.4-35.0) % Lymph # (1.2-5.4) K/mm3 Seg Neutrophils % (40.0-70.0) % Seg Neutrophils # (1.8-7.7) K/mm3 INR (0.87-1.13) VBG pH (7.320-7.420) Sodium (137-145) mmol/L Chloride (98-107) mmol/L Carbon Dioxide (22-30) mmol/L BUN (9-20) mg/dL Creatinine (0.8-1.5) mg/dL Glucose (75-100) mg/dL POC Glucose 119 H 155 H 137 H (70-105) Lactic Acid (0.7-2.0) mmol/L Calcium (8.4-10.2) mg/dL Phosphorus (2.5-4.5) mg/dL Magnesium (1.7-2.3) mg/dL Total Bilirubin (0.1-1.2) mg/dL Direct Bilirubin (0-0.2) mg/dL AST (5-40) units/L Total Creatine Kinase (55-170) units/L Lipase (13-60) units/L Urine WBC (Auto) (0.0-6.0) /HPF
--- NOTE | 2019-08-16 13:14 | Gastroenterology Progress Note ---
<RADHAMESRSOE Irving - Last Filed: 08/16/19 13:32> Assessment and Plan 1.abdominal pain 2.elevated LFTs 3.ETOH abuse -temp 99.4 -WBC 13.4 -H/H 15.4/47.0-no signs of bleeding -INR 1.14, plt WNL -LFTs-T.devon 2.60, AST 69, ALT 17, alk phos 66 -lipase 291-trending down -abd U/S showed fatty infiltration of liver but no gallstones or biliary dilatation -abd CT showed relatively severe pancreatitis with adjacent fluid/inflammation -etiology-likely alcoholic pancreatitis -clinically, patient reports feeling better with abd pain improving. Denies N/V. Tolerating diet. -will order triglyceride level r/o other causes -continue PPI -alcohol cessation-monitor for signs of withdrawal -continue to trend labs and supportive care -will follow Subjective Date of service: 08/16/19 Principal diagnosis: elevated LFTs, abd pain Interval history: No acute distress. Reports feeling better with abd pain improving. No N/V or active signs of bleeding. Objective - Constitutional Vitals: Temp Pulse Resp BP Pulse Ox 99.4 F 132 H 29 H 133/101 95 08/16/19 07:10 08/16/19 10:30 08/16/19 10:30 08/16/19 10:30 08/16/19 10:15 General appearance: no acute distress - Respiratory Respiratory: bilateral: diminished - Cardiovascular Rhythm: other (tachycardia) - Gastrointestinal General gastrointestinal: Present: soft, tender (mild left side TTP), non- distended, normal bowel sounds - Neurologic Neurological: alert and oriented x3 - Labs CBC & Chem 7: 08/15/19 15:23 08/16/19 01:48 Labs: Laboratory Results - last 24 hr 08/15/19 08/15/19 08/15/19 15:23 15:23 15:23 WBC 13.4 H RBC 5.12 H Hgb 15.4 H Hct 47.0 H MCV 92 MCH 30 MCHC 33 RDW 15.5 H Plt Count 242 Lymph % (Auto) 6.3 L [place] % (Auto) 5.5 Eos % (Auto) 0.0 Baso % (Auto) 0.1 Lymph # 0.8 L [place] # 0.7 Eos # 0.0 Baso # 0.0 Seg Neutrophils % 88.1 H Seg Neutrophils # 11.8 H PT INR APTT VBG pH Sodium 127 L Potassium 4.7 Chloride 90.5 L Carbon Dioxide 17 L Anion Gap 24 BUN 25 H Creatinine 1.7 H Estimated GFR 45 BUN/Creatinine Ratio 15 Glucose 533 H* POC Glucose Lactic Acid Calcium 8.6 Phosphorus Magnesium Total Bilirubin 2.70 H Direct Bilirubin Indirect Bilirubin AST 69 H ALT 17 Alkaline Phosphatase 66 Total Creatine Kinase Troponin T < 0.010 Total Protein 7.8 Albumin 4.0 Albumin/Globulin Ratio 1.1 Lipase 580 H Urine Color Urine Turbidity Urine pH Ur Specific [place] Urine Protein Urine Glucose (UA) Urine Ketones Urine Blood Urine Nitrite Urine Bilirubin Urine Urobilinogen Ur Leukocyte Esterase Urine WBC (Auto) Urine RBC (Auto) U Epithel Cells (Auto) Hyaline Casts Urine Mucus 08/15/19 08/15/19 08/15/19 16:00 16:10 16:10 WBC RBC Hgb Hct MCV MCH MCHC RDW Plt Count Lymph % (Auto) [place] % (Auto) Eos % (Auto) Baso % (Auto) Lymph # [place] # Eos # Baso # Seg Neutrophils % Seg Neutrophils # PT 14.8 INR 1.14 H APTT 26.3 VBG pH Sodium Potassium Chloride Carbon Dioxide Anion Gap BUN Creatinine Estimated GFR BUN/Creatinine Ratio Glucose POC Glucose Lactic Acid 3.30 H* Calcium Phosphorus Magnesium Total Bilirubin Direct Bilirubin Indirect Bilirubin AST ALT Alkaline Phosphatase Total Creatine Kinase Troponin T Total Protein Albumin Albumin/Globulin Ratio Lipase Urine Color [place] Urine Turbidity Slightly-cloudy Urine pH 5.0 Ur Specific [place] 1.027 Urine Protein 100 mg/dl Urine Glucose (UA) >=500 Urine Ketones Neg Urine Blood Lg Urine Nitrite Neg Urine Bilirubin Neg Urine Urobilinogen < 2.0 Ur Leukocyte Esterase Neg Urine WBC (Auto) 17.0 H Urine RBC (Auto) 43.0 U Epithel Cells (Auto) 2.0 Hyaline Casts 3 Urine Mucus Few 08/15/19 08/15/19 08/15/19 16:10 16:15 16:15 WBC RBC Hgb Hct MCV MCH MCHC RDW Plt Count Lymph % (Auto) [place] % (Auto) Eos % (Auto) Baso % (Auto) Lymph # [place] # Eos # Baso # Seg Neutrophils % Seg Neutrophils # PT INR APTT VBG pH 7.423 H Sodium 127 L Potassium 4.8 Chloride 89.9 L Carbon Dioxide 13 L Anion Gap 29 BUN 28 H Creatinine 1.7 H Estimated GFR 45 BUN/Creatinine Ratio 16 Glucose 531 H* POC Glucose Lactic Acid Calcium 8.3 L Phosphorus Magnesium 2.60 H Total Bilirubin 2.60 H Direct Bilirubin 0.8 H Indirect Bilirubin 1.8 AST ALT Alkaline Phosphatase Total Creatine Kinase 517 H Troponin T Total Protein Albumin Albumin/Globulin Ratio Lipase Urine Color Urine Turbidity Urine pH Ur Specific [place] Urine Protein Urine Glucose (UA) Urine Ketones Urine Blood Urine Nitrite Urine Bilirubin Urine Urobilinogen Ur Leukocyte Esterase Urine WBC (Auto) Urine RBC (Auto) U Epithel Cells (Auto) Hyaline Casts Urine Mucus 08/15/19 08/15/19 08/15/19 18:04 18:04 18:05 WBC RBC Hgb Hct MCV MCH MCHC RDW Plt Count Lymph % (Auto) [place] % (Auto) Eos % (Auto) Baso % (Auto) Lymph # [place] # Eos # Baso # Seg Neutrophils % Seg Neutrophils # PT INR APTT VBG pH Sodium 133 L Potassium 3.8 D Chloride 101.2 Carbon Dioxide 17 L Anion Gap 19 BUN 25 H Creatinine 1.6 H Estimated GFR 48 BUN/Creatinine Ratio 16 Glucose 368 H POC Glucose 337 H Lactic Acid 3.50 H* Calcium 7.2 L Phosphorus Magnesium Total Bilirubin Direct Bilirubin Indirect Bilirubin AST ALT Alkaline Phosphatase Total Creatine Kinase Troponin T Total Protein Albumin Albumin/Globulin Ratio Lipase Urine Color Urine Turbidity Urine pH Ur Specific [place] Urine Protein Urine Glucose (UA) Urine Ketones Urine Blood Urine Nitrite Urine Bilirubin Urine Urobilinogen Ur Leukocyte Esterase Urine WBC (Auto) Urine RBC (Auto) U Epithel Cells (Auto) Hyaline Casts Urine Mucus 08/15/19 08/15/19 08/15/19 19:08 20:27 21:34 WBC RBC Hgb Hct MCV MCH MCHC RDW Plt Count Lymph % (Auto) [place] % (Auto) Eos % (Auto) Baso % (Auto) Lymph # [place] # Eos # Baso # Seg Neutrophils % Seg Neutrophils # PT INR APTT VBG pH Sodium Potassium Chloride Carbon Dioxide Anion Gap BUN Creatinine Estimated GFR BUN/Creatinine Ratio Glucose POC Glucose 279 H 242 H 250 H Lactic Acid Calcium Phosphorus Magnesium Total Bilirubin Direct Bilirubin Indirect Bilirubin AST ALT Alkaline Phosphatase Total Creatine Kinase Troponin T Total Protein Albumin Albumin/Globulin Ratio Lipase Urine Color Urine Turbidity Urine pH Ur Specific [place] Urine Protein Urine Glucose (UA) Urine Ketones Urine Blood Urine Nitrite Urine Bilirubin Urine Urobilinogen Ur Leukocyte Esterase Urine WBC (Auto) Urine RBC (Auto) U Epithel Cells (Auto) Hyaline Casts Urine Mucus 08/15/19 08/15/19 08/15/19 22:19 22:38 22:38 WBC RBC Hgb Hct MCV MCH MCHC RDW Plt Count Lymph % (Auto) [place] % (Auto) Eos % (Auto) Baso % (Auto) Lymph # [place] # Eos # Baso # Seg Neutrophils % Seg Neutrophils # PT INR APTT VBG pH Sodium 137 Potassium 4.1 Chloride 102.8 Carbon Dioxide 22 Anion Gap 16 BUN 20 Creatinine 1.3 Estimated GFR > 60 BUN/Creatinine Ratio 15 Glucose 191 H POC Glucose 223 H Lactic Acid Calcium 7.3 L Phosphorus 1.70 L Magnesium 2.50 H Total Bilirubin Direct Bilirubin Indirect Bilirubin AST ALT Alkaline Phosphatase Total Creatine Kinase Troponin T Total Protein Albumin Albumin/Globulin Ratio Lipase Urine Color Urine Turbidity Urine pH Ur Specific [place] Urine Protein Urine Glucose (UA) Urine Ketones Urine Blood Urine Nitrite Urine Bilirubin Urine Urobilinogen Ur Leukocyte Esterase Urine WBC (Auto) Urine RBC (Auto) U Epithel Cells (Auto) Hyaline Casts Urine Mucus 08/15/19 08/15/19 08/16/19 22:38 23:18 00:12 WBC RBC Hgb Hct MCV MCH MCHC RDW Plt Count Lymph % (Auto) [place] % (Auto) Eos % (Auto) Baso % (Auto) Lymph # [place] # Eos # Baso # Seg Neutrophils % Seg Neutrophils # PT INR APTT VBG pH Sodium Potassium Chloride Carbon Dioxide Anion Gap BUN Creatinine Estimated GFR BUN/Creatinine Ratio Glucose POC Glucose 172 H 156 H Lactic Acid 1.60 Calcium Phosphorus Magnesium Total Bilirubin Direct Bilirubin Indirect Bilirubin AST ALT Alkaline Phosphatase Total Creatine Kinase Troponin T Total Protein Albumin Albumin/Globulin Ratio Lipase Urine Color Urine Turbidity Urine pH Ur Specific [place] Urine Protein Urine Glucose (UA) Urine Ketones Urine Blood Urine Nitrite Urine Bilirubin Urine Urobilinogen Ur Leukocyte Esterase Urine WBC (Auto) Urine RBC (Auto) U Epithel Cells (Auto) Hyaline Casts Urine Mucus 08/16/19 08/16/19 08/16/19 01:33 01:48 02:35 WBC RBC Hgb Hct MCV MCH MCHC RDW Plt Count Lymph % (Auto) [place] % (Auto) Eos % (Auto) Baso % (Auto) Lymph # [place] # Eos # Baso # Seg Neutrophils % Seg Neutrophils # PT INR APTT VBG pH Sodium 139 Potassium 4.1 Chloride 107.5 H Carbon Dioxide 22 Anion Gap 14 BUN 19 Creatinine 1.2 Estimated GFR > 60 BUN/Creatinine Ratio 16 Glucose 168 H POC Glucose 157 H 187 H Lactic Acid Calcium 7.4 L Phosphorus Magnesium Total Bilirubin Direct Bilirubin Indirect Bilirubin AST ALT Alkaline Phosphatase Total Creatine Kinase Troponin T Total Protein Albumin Albumin/Globulin Ratio Lipase Urine Color Urine Turbidity Urine pH Ur Specific [place] Urine Protein Urine Glucose (UA) Urine Ketones Urine Blood Urine Nitrite Urine Bilirubin Urine Urobilinogen Ur Leukocyte Esterase Urine WBC (Auto) Urine RBC (Auto) U Epithel Cells (Auto) Hyaline Casts Urine Mucus 08/16/19 08/16/19 08/16/19 03:39 04:42 05:32 WBC RBC Hgb Hct MCV MCH MCHC RDW Plt Count Lymph % (Auto) [place] % (Auto) Eos % (Auto) Baso % (Auto) Lymph # [place] # Eos # Baso # Seg Neutrophils % Seg Neutrophils # PT INR APTT VBG pH Sodium Potassium Chloride Carbon Dioxide Anion Gap BUN Creatinine Estimated GFR BUN/Creatinine Ratio Glucose POC Glucose 147 H 146 H Lactic Acid Calcium Phosphorus Magnesium Total Bilirubin Direct Bilirubin Indirect Bilirubin AST ALT Alkaline Phosphatase Total Creatine Kinase Troponin T Total Protein Albumin Albumin/Globulin Ratio Lipase 291 H Urine Color Urine Turbidity Urine pH Ur Specific [place] Urine Protein Urine Glucose (UA) Urine Ketones Urine Blood Urine Nitrite Urine Bilirubin Urine Urobilinogen Ur Leukocyte Esterase Urine WBC (Auto) Urine RBC (Auto) U Epithel Cells (Auto) Hyaline Casts Urine Mucus 08/16/19 08/16/19 08/16/19 05:43 06:32 08:37 WBC RBC Hgb Hct MCV MCH MCHC RDW Plt Count Lymph % (Auto) [place] % (Auto) Eos % (Auto) Baso % (Auto) Lymph # [place] # Eos # Baso # Seg Neutrophils % Seg Neutrophils # PT INR APTT VBG pH Sodium Potassium Chloride Carbon Dioxide Anion Gap BUN Creatinine Estimated GFR BUN/Creatinine Ratio Glucose POC Glucose 164 H 132 H 119 H Lactic Acid Calcium Phosphorus Magnesium Total Bilirubin Direct Bilirubin Indirect Bilirubin AST ALT Alkaline Phosphatase Total Creatine Kinase Troponin T Total Protein Albumin Albumin/Globulin Ratio Lipase Urine Color Urine Turbidity Urine pH Ur Specific [place] Urine Protein Urine Glucose (UA) Urine Ketones Urine Blood Urine Nitrite Urine Bilirubin Urine Urobilinogen Ur Leukocyte Esterase Urine WBC (Auto) Urine RBC (Auto) U Epithel Cells (Auto) Hyaline Casts Urine Mucus 08/16/19 08/16/19 10:33 11:59 WBC RBC Hgb Hct MCV MCH MCHC RDW Plt Count Lymph % (Auto) [place] % (Auto) Eos % (Auto) Baso % (Auto) Lymph # [place] # Eos # Baso # Seg Neutrophils % Seg Neutrophils # PT INR APTT VBG pH Sodium Potassium Chloride Carbon Dioxide Anion Gap BUN Creatinine Estimated GFR BUN/Creatinine Ratio Glucose POC Glucose 155 H 137 H Lactic Acid Calcium Phosphorus Magnesium Total Bilirubin Direct Bilirubin Indirect Bilirubin AST ALT Alkaline Phosphatase Total Creatine Kinase Troponin T Total Protein Albumin Albumin/Globulin Ratio Lipase Urine Color Urine Turbidity Urine pH Ur Specific [place] Urine Protein Urine Glucose (UA) Urine Ketones Urine Blood Urine Nitrite Urine Bilirubin Urine Urobilinogen Ur Leukocyte Esterase Urine WBC (Auto) Urine RBC (Auto) U Epithel Cells (Auto) Hyaline Casts Urine Mucus <WOODY SPIVEY - Last Filed: 08/16/19 18:26> Assessment and Plan Patient seen and examined. I have reviewed the advanced practitioner's evaluation, assessment, and plan, and agree with them. I note the following additions: Patient reports symptoms gradually improving and tolerating diet Regarding pancreatitis, most likely alcoholic labs ordered for rest of evaluation Liver enzymes improving Ordered more normal saline, patient remains tachycardic and sinus tach, last EKG within 24 hours. Suspect due to dehydration and pain, but recommend continuing to monitor on telemetry Once pain is controlled patient tolerating diet and vital signs normalize patient may be discharged with outpatient follow-up and alcohol cessation education - Patient Problems (1) Upper abdominal pain Current Visit: No Status: Acute (2) Alcohol abuse Current Visit: No Status: Acute (3) Abnormal liver enzymes Current Visit: No Status: Acute Objective - Constitutional Vitals: Temp Pulse Resp BP Pulse Ox 99.4 F 132 H 29 H 133/101 95 08/16/19 07:10 08/16/19 10:30 08/16/19 10:30 08/16/19 10:30 08/16/19 10:15 - Labs CBC & Chem 7: 08/16/19 14:39 08/16/19 14:39 Labs: Laboratory Results - last 24 hr 08/15/19 08/15/19 08/15/19 18:04 18:04 19:08 WBC RBC Hgb Hct MCV MCH MCHC RDW Plt Count Lymph % (Auto) [place] % (Auto) Eos % (Auto) Baso % (Auto) Lymph # [place] # Eos # Baso # Seg Neutrophils % Seg Neutrophils # PT INR Sodium 133 L Potassium 3.8 D Chloride 101.2 Carbon Dioxide 17 L Anion Gap 19 BUN 25 H Creatinine 1.6 H Estimated GFR 48 BUN/Creatinine Ratio 16 Glucose 368 H POC Glucose 279 H Lactic Acid 3.50 H* Calcium 7.2 L Phosphorus Magnesium Total Bilirubin Direct Bilirubin Indirect Bilirubin AST ALT Alkaline Phosphatase Total Protein Albumin Albumin/Globulin Ratio Triglycerides Lipase Hepatitis A IgM Ab Hep Bs Antigen Hep B Core IgM Ab Hepatitis C Antibody 08/15/19 08/15/19 08/15/19 20:27 21:34 22:19 WBC RBC Hgb Hct MCV MCH MCHC RDW Plt Count Lymph % (Auto) [place] % (Auto) Eos % (Auto) Baso % (Auto) Lymph # [place] # Eos # Baso # Seg Neutrophils % Seg Neutrophils # PT INR Sodium Potassium Chloride Carbon Dioxide Anion Gap BUN Creatinine Estimated GFR BUN/Creatinine Ratio Glucose POC Glucose 242 H 250 H 223 H Lactic Acid Calcium Phosphorus Magnesium Total Bilirubin Direct Bilirubin Indirect Bilirubin AST ALT Alkaline Phosphatase Total Protein Albumin Albumin/Globulin Ratio Triglycerides Lipase Hepatitis A IgM Ab Hep Bs Antigen Hep B Core IgM Ab Hepatitis C Antibody 08/15/19 08/15/19 08/15/19 22:38 22:38 22:38 WBC RBC Hgb Hct MCV MCH MCHC RDW Plt Count Lymph % (Auto) [place] % (Auto) Eos % (Auto) Baso % (Auto) Lymph # [place] # Eos # Baso # Seg Neutrophils % Seg Neutrophils # PT INR Sodium 137 Potassium 4.1 Chloride 102.8 Carbon Dioxide 22 Anion Gap 16 BUN 20 Creatinine 1.3 Estimated GFR > 60 BUN/Creatinine Ratio 15 Glucose 191 H POC Glucose Lactic Acid 1.60 Calcium 7.3 L Phosphorus 1.70 L Magnesium 2.50 H Total Bilirubin Direct Bilirubin Indirect Bilirubin AST ALT Alkaline Phosphatase Total Protein Albumin Albumin/Globulin Ratio Triglycerides Lipase Hepatitis A IgM Ab Hep Bs Antigen Hep B Core IgM Ab Hepatitis C Antibody 08/15/19 08/16/19 08/16/19 23:18 00:12 01:33 WBC RBC Hgb Hct MCV MCH MCHC RDW Plt Count Lymph % (Auto) [place] % (Auto) Eos % (Auto) Baso % (Auto) Lymph # [place] # Eos # Baso # Seg Neutrophils % Seg Neutrophils # PT INR Sodium Potassium Chloride Carbon Dioxide Anion Gap BUN Creatinine Estimated GFR BUN/Creatinine Ratio Glucose POC Glucose 172 H 156 H 157 H Lactic Acid Calcium Phosphorus Magnesium Total Bilirubin Direct Bilirubin Indirect Bilirubin AST ALT Alkaline Phosphatase Total Protein Albumin Albumin/Globulin Ratio Triglycerides Lipase Hepatitis A IgM Ab Hep Bs Antigen Hep B Core IgM Ab Hepatitis C Antibody 08/16/19 08/16/19 08/16/19 01:48 02:35 03:39 WBC RBC Hgb Hct MCV MCH MCHC RDW Plt Count Lymph % (Auto) [place] % (Auto) Eos % (Auto) Baso % (Auto) Lymph # [place] # Eos # Baso # Seg Neutrophils % Seg Neutrophils # PT INR Sodium 139 Potassium 4.1 Chloride 107.5 H Carbon Dioxide 22 Anion Gap 14 BUN 19 Creatinine 1.2 Estimated GFR > 60 BUN/Creatinine Ratio 16 Glucose 168 H POC Glucose 187 H 147 H Lactic Acid Calcium 7.4 L Phosphorus Magnesium Total Bilirubin Direct Bilirubin Indirect Bilirubin AST ALT Alkaline Phosphatase Total Protein Albumin Albumin/Globulin Ratio Triglycerides Lipase Hepatitis A IgM Ab Hep Bs Antigen Hep B Core IgM Ab Hepatitis C Antibody 08/16/19 08/16/19 08/16/19 04:42 05:32 05:43 WBC RBC Hgb Hct MCV MCH MCHC RDW Plt Count Lymph % (Auto) [place] % (Auto) Eos % (Auto) Baso % (Auto) Lymph # [place] # Eos # Baso # Seg Neutrophils % Seg Neutrophils # PT INR Sodium Potassium Chloride Carbon Dioxide Anion Gap BUN Creatinine Estimated GFR BUN/Creatinine Ratio Glucose POC Glucose 146 H 164 H Lactic Acid Calcium Phosphorus Magnesium Total Bilirubin Direct Bilirubin Indirect Bilirubin AST ALT Alkaline Phosphatase Total Protein Albumin Albumin/Globulin Ratio Triglycerides Lipase 291 H Hepatitis A IgM Ab Hep Bs Antigen Hep B Core IgM Ab Hepatitis C Antibody 08/16/19 08/16/19 08/16/19 06:32 08:37 10:33 WBC RBC Hgb Hct MCV MCH MCHC RDW Plt Count Lymph % (Auto) [place] % (Auto) Eos % (Auto) Baso % (Auto) Lymph # [place] # Eos # Baso # Seg Neutrophils % Seg Neutrophils # PT INR Sodium Potassium Chloride Carbon Dioxide Anion Gap BUN Creatinine Estimated GFR BUN/Creatinine Ratio Glucose POC Glucose 132 H 119 H 155 H Lactic Acid Calcium Phosphorus Magnesium Total Bilirubin Direct Bilirubin Indirect Bilirubin AST ALT Alkaline Phosphatase Total Protein Albumin Albumin/Globulin Ratio Triglycerides Lipase Hepatitis A IgM Ab Hep Bs Antigen Hep B Core IgM Ab Hepatitis C Antibody 08/16/19 08/16/19 08/16/19 11:59 14:39 14:39 WBC RBC Hgb Hct MCV MCH MCHC RDW Plt Count Lymph % (Auto) [place] % (Auto) Eos % (Auto) Baso % (Auto) Lymph # [place] # Eos # Baso # Seg Neutrophils % Seg Neutrophils # PT INR Sodium 137 Potassium 4.1 Chloride 104.0 Carbon Dioxide 17 L Anion Gap 20 BUN 14 Creatinine 1.0 Estimated GFR > 60 BUN/Creatinine Ratio 14 Glucose 203 H POC Glucose 137 H Lactic Acid Calcium 8.0 L Phosphorus Magnesium Total Bilirubin 1.80 H Direct Bilirubin 0.7 H Indirect Bilirubin 1.1 AST 48 H ALT 12 Alkaline Phosphatase 57 Total Protein 6.7 Albumin 3.2 L Albumin/Globulin Ratio 0.9 Triglycerides Lipase Hepatitis A IgM Ab Hep Bs Antigen Hep B Core IgM Ab Hepatitis C Antibody 08/16/19 08/16/19 08/16/19 14:39 14:39 14:39 WBC 11.2 H RBC 4.10 Hgb 12.3 D Hct 37.5 D MCV 92 MCH 30 MCHC 33 RDW 15.5 H Plt Count 220 Lymph % (Auto) 7.9 L [place] % (Auto) 8.1 H Eos % (Auto) 0.4 Baso % (Auto) 0.4 Lymph # 0.9 L [place] # 0.9 H Eos # 0.0 Baso # 0.0 Seg Neutrophils % 83.2 H Seg Neutrophils # 9.3 H PT 14.5 INR 1.11 Sodium Potassium Chloride Carbon Dioxide Anion Gap BUN Creatinine Estimated GFR BUN/Creatinine Ratio Glucose POC Glucose Lactic Acid Calcium Phosphorus Magnesium Total Bilirubin Direct Bilirubin Indirect Bilirubin AST ALT Alkaline Phosphatase Total Protein Albumin Albumin/Globulin Ratio Triglycerides Lipase Hepatitis A IgM Ab Non-reactive Hep Bs Antigen Non-reactive Hep B Core IgM Ab Non-reactive Hepatitis C Antibody Non-reactive 08/16/19 08/16/19 14:39 18:05 WBC RBC Hgb Hct MCV MCH MCHC RDW Plt Count Lymph % (Auto) [place] % (Auto) Eos % (Auto) Baso % (Auto) Lymph # [place] # Eos # Baso # Seg Neutrophils % Seg Neutrophils # PT INR Sodium Potassium Chloride Carbon Dioxide Anion Gap BUN Creatinine Estimated GFR BUN/Creatinine Ratio Glucose POC Glucose 220 H Lactic Acid Calcium Phosphorus Magnesium Total Bilirubin Direct Bilirubin Indirect Bilirubin AST ALT Alkaline Phosphatase Total Protein Albumin Albumin/Globulin Ratio Triglycerides 96 Lipase Hepatitis A IgM Ab Hep Bs Antigen Hep B Core IgM Ab Hepatitis C Antibody
[2019-08-16 15:00] LABS: Basophils % (Auto) 0.4 % (0.0-1.8); Eosinophils % (Auto) 0.4 % (0.0-4.3); Hematocrit 37.5 % (35.5-45.6); Hemoglobin 12.3 gm/dl (11.8-15.2); Lymphocytes # (Auto) 0.9 K/mm3 (1.2-5.4); Lymphocytes % (Auto) 7.9 % (13.4-35.0); Mean Corpuscular HGB Conc 33 % (32-34); Mean Corpuscular Volume 92 fl (84-94); Monocytes # (Auto) 0.9 K/mm3 (0.0-0.8); Monocytes % (Auto) 8.1 % (0.0-7.3); Red Cell Distribution Width 15.5 % (13.2-15.2)
[2019-08-16] MEDS ORDERED: SODIUM CHLORIDE 0.9% 1000 ML 1,000 ML ONE (15:08)
[2019-08-16] MEDS ORDERED: amLODIPine 10 MG TAB ONE (15:08)
[2019-08-16 15:09] LABS: INR 1.11 (0.87-1.13)
[2019-08-16 15:13] LABS: Platelet Count 220 K/mm3 (140-440)
[2019-08-16] MEDS: amLODIPine 10 MG TAB PO SCH (15:15)
[2019-08-16 15:19] LABS: BUN/Creatinine Ratio 14; Blood Urea Nitrogen 14 mg/dL (9-20); Hemolysis Index 0
[2019-08-16 15:21] LABS: Albumin 3.2 g/dL (3.9-5); Bilirubin,Direct 0.7 mg/dL (0-0.2)
[2019-08-16 15:26] LABS: Hepatitis B Surface Antigen Non-Reactive (Negative); Hepatitis C Virus Antibody Non-Reactive (NonReactive)
[2019-08-16] MEDS: INSULIN LISPRO 100 UNIT/ML SUB-Q SCH ×3 (17:46→21:42)
[2019-08-16] MEDS ORDERED: INSULIN LISPRO 100 UNIT/ML SUB-Q ONE (18:05)
[2019-08-16] MEDS: INSULIN NPH/REGULAR 70/30 INJ SUB-Q SCH (20:20)
[2019-08-16 20:24] LABS: BUN/Creatinine Ratio 14; Blood Urea Nitrogen 13 mg/dL (9-20); Hemolysis Index 3
[2019-08-16] MEDS: SODIUM CHLORIDE 0.9% 1000 ML 1,000 ML IV SCH (22:39)
[2019-08-17] MEDS: INSULIN LISPRO 100 UNIT/ML SUB-Q SCH ×6 (03:52→22:40)
[2019-08-17] MEDS ORDERED: INSULIN REGULAR, HUMAN 100 UNITS/1 ML ONE (06:17)
[2019-08-17] MEDS ORDERED: INSULIN LISPRO 100 UNIT/ML SUB-Q ONE (06:21)
[2019-08-17] MEDS ORDERED: HEPARIN 5,000 UNIT/1 ML VIAL ONE (10:00)
[2019-08-17] MEDS ORDERED: amLODIPine 5 MG TAB ONE (10:00)
[2019-08-17] MEDS ORDERED: PANTOPRAZOLE 40 MG TAB PO ONE (10:01)
[2019-08-17] MEDS: amLODIPine 10 MG TAB PO SCH (11:12)
[2019-08-17] MEDS: HEPARIN 5,000 UNIT/1 ML VIAL SUB-Q SCH ×2 (11:12→22:42)
[2019-08-17] MEDS: INSULIN NPH/REGULAR 70/30 INJ SUB-Q SCH ×3 (11:12→22:41)
[2019-08-17] MEDS: SUCRALFATE 1 GM/10 ML ORAL LIQD PO SCH ×4 (11:12→22:39)
[2019-08-17] MEDS: PANTOPRAZOLE 40 MG TAB PO SCH ×2 (11:13→22:42)
--- NOTE | 2019-08-17 11:48 | Gastroenterology Progress Note ---
<RADHAMESROSE Irving - Last Filed: 08/17/19 11:43> Assessment and Plan 1.abdominal pain 2.elevated LFTs 3.ETOH abuse -WBC 11.2-trending down -H/H WNL-no signs of bleeding -INR 1.11, plt WNL -LFTs-T.devon 1.80, AST 48, ALT 12, alk phos 57-trending down -lipase 291-trending down -acute hepatitis panel negative -triglyceride level WNL -abd U/S showed fatty infiltration of liver but no gallstones or biliary dilatation -abd CT showed relatively severe pancreatitis with adjacent fluid/inflammation -etiology-alcoholic pancreatitis -clinically, patient reports abd pain continuing to improve. Denies N/V. Tolerating small amounts of PO. -continue PPI -alcohol cessation-monitor for signs of withdrawal -continue to trend labs and supportive care (IV fluid, pain control, antiemetics, etc.) -will follow Subjective Date of service: 08/17/19 Principal diagnosis: elevated LFTs, abd pain Interval history: No acute distress but somnolent upon exam from receiving Ativan. Reports abd pain continuing to improve. No N/V or active signs of bleeding. Objective - Constitutional Vitals: Temp Pulse Resp BP Pulse Ox 99.4 F 130 H 16 128/104 94 08/16/19 07:10 08/17/19 10:01 08/17/19 10:01 08/17/19 10:01 08/17/19 10:01 General appearance: no acute distress, other (somnolent) - Respiratory Respiratory effort: normal Respiratory: bilateral: diminished - Cardiovascular Rhythm: other (tachycardia) - Gastrointestinal General gastrointestinal: Present: soft, tender (slight TTP ), non-distended, normal bowel sounds - Neurologic Neurological: alert and oriented x3 - Labs CBC & Chem 7: 08/16/19 14:39 08/16/19 19:40 Labs: Laboratory Results - last 24 hr 08/16/19 08/16/19 08/16/19 11:59 14:39 14:39 WBC RBC Hgb Hct MCV MCH MCHC RDW Plt Count Lymph % (Auto) [place] % (Auto) Eos % (Auto) Baso % (Auto) Lymph # [place] # Eos # Baso # Seg Neutrophils % Seg Neutrophils # PT INR Sodium 137 Potassium 4.1 Chloride 104.0 Carbon Dioxide 17 L Anion Gap 20 BUN 14 Creatinine 1.0 Estimated GFR > 60 BUN/Creatinine Ratio 14 Glucose 203 H POC Glucose 137 H Calcium 8.0 L Total Bilirubin 1.80 H Direct Bilirubin 0.7 H Indirect Bilirubin 1.1 AST 48 H ALT 12 Alkaline Phosphatase 57 Total Protein 6.7 Albumin 3.2 L Albumin/Globulin Ratio 0.9 Triglycerides Hepatitis A IgM Ab Hep Bs Antigen Hep B Core IgM Ab Hepatitis C Antibody 08/16/19 08/16/19 08/16/19 14:39 14:39 14:39 WBC 11.2 H RBC 4.10 Hgb 12.3 D Hct 37.5 D MCV 92 MCH 30 MCHC 33 RDW 15.5 H Plt Count 220 Lymph % (Auto) 7.9 L [place] % (Auto) 8.1 H Eos % (Auto) 0.4 Baso % (Auto) 0.4 Lymph # 0.9 L [place] # 0.9 H Eos # 0.0 Baso # 0.0 Seg Neutrophils % 83.2 H Seg Neutrophils # 9.3 H PT 14.5 INR 1.11 Sodium Potassium Chloride Carbon Dioxide Anion Gap BUN Creatinine Estimated GFR BUN/Creatinine Ratio Glucose POC Glucose Calcium Total Bilirubin Direct Bilirubin Indirect Bilirubin AST ALT Alkaline Phosphatase Total Protein Albumin Albumin/Globulin Ratio Triglycerides Hepatitis A IgM Ab Non-reactive Hep Bs Antigen Non-reactive Hep B Core IgM Ab Non-reactive Hepatitis C Antibody Non-reactive 08/16/19 08/16/19 08/16/19 14:39 18:05 19:40 WBC RBC Hgb Hct MCV MCH MCHC RDW Plt Count Lymph % (Auto) [place] % (Auto) Eos % (Auto) Baso % (Auto) Lymph # [place] # Eos # Baso # Seg Neutrophils % Seg Neutrophils # PT INR Sodium 136 L Potassium 4.0 Chloride 102.6 Carbon Dioxide 17 L Anion Gap 20 BUN 13 Creatinine 0.9 Estimated GFR > 60 BUN/Creatinine Ratio 14 Glucose 199 H POC Glucose 220 H Calcium 8.0 L Total Bilirubin Direct Bilirubin Indirect Bilirubin AST ALT Alkaline Phosphatase Total Protein Albumin Albumin/Globulin Ratio Triglycerides 96 Hepatitis A IgM Ab Hep Bs Antigen Hep B Core IgM Ab Hepatitis C Antibody 08/17/19 06:20 WBC RBC Hgb Hct MCV MCH MCHC RDW Plt Count Lymph % (Auto) [place] % (Auto) Eos % (Auto) Baso % (Auto) Lymph # [place] # Eos # Baso # Seg Neutrophils % Seg Neutrophils # PT INR Sodium Potassium Chloride Carbon Dioxide Anion Gap BUN Creatinine Estimated GFR BUN/Creatinine Ratio Glucose POC Glucose 294 H Calcium Total Bilirubin Direct Bilirubin Indirect Bilirubin AST ALT Alkaline Phosphatase Total Protein Albumin Albumin/Globulin Ratio Triglycerides Hepatitis A IgM Ab Hep Bs Antigen Hep B Core IgM Ab Hepatitis C Antibody <WOODY SPIVEY - Last Filed: 08/17/19 17:57> Assessment and Plan Patient seen and examined. I have reviewed the advanced practitioner's evaluation, assessment, and plan, and agree with them. I note the following additions: Patient improving. Most consistent with alcoholic pancreatitis. Alcohol cessation education Patient may be discharged once pain is controlled and he is tolerating diet GI will sign off, please call back with any questions or concerns - Patient Problems (1) Upper abdominal pain Current Visit: No Status: Acute (2) Alcohol abuse Current Visit: No Status: Acute (3) Abnormal liver enzymes Current Visit: No Status: Acute Objective - Constitutional Vitals: Temp Pulse Resp BP Pulse Ox 99.4 F 130 H 16 128/104 94 08/16/19 07:10 08/17/19 10:01 08/17/19 10:01 08/17/19 10:01 08/17/19 10:01 - Labs CBC & Chem 7: 08/17/19 14:49 08/17/19 14:49 Labs: Laboratory Results - last 24 hr 08/16/19 08/16/19 08/16/19 14:39 14:39 14:39 WBC 11.2 H RBC 4.10 Hgb 12.3 D Hct 37.5 D MCV 92 MCH 30 MCHC 33 RDW 15.5 H Plt Count 220 Lymph % (Auto) 7.9 L [place] % (Auto) 8.1 H Eos % (Auto) 0.4 Baso % (Auto) 0.4 Lymph # 0.9 L [place] # 0.9 H Eos # 0.0 Baso # 0.0 Seg Neutrophils % 83.2 H Seg Neutrophils # 9.3 H PT INR Sodium 137 Potassium 4.1 Chloride 104.0 Carbon Dioxide 17 L Anion Gap 20 BUN 14 Creatinine 1.0 Estimated GFR > 60 BUN/Creatinine Ratio 14 Glucose 203 H POC Glucose Calcium 8.0 L Total Bilirubin 1.80 H Direct Bilirubin 0.7 H Indirect Bilirubin 1.1 AST 48 H ALT 12 Alkaline Phosphatase 57 Total Protein 6.7 Albumin 3.2 L Albumin/Globulin Ratio 0.9 Triglycerides Hepatitis A IgM Ab Hep Bs Antigen Hep B Core IgM Ab Hepatitis C Antibody 08/16/19 08/16/19 08/16/19 14:39 14:39 14:39 WBC RBC Hgb Hct MCV MCH MCHC RDW Plt Count Lymph % (Auto) [place] % (Auto) Eos % (Auto) Baso % (Auto) Lymph # [place] # Eos # Baso # Seg Neutrophils % Seg Neutrophils # PT 14.5 INR 1.11 Sodium Potassium Chloride Carbon Dioxide Anion Gap BUN Creatinine Estimated GFR BUN/Creatinine Ratio Glucose POC Glucose Calcium Total Bilirubin Direct Bilirubin Indirect Bilirubin AST ALT Alkaline Phosphatase Total Protein Albumin Albumin/Globulin Ratio Triglycerides 96 Hepatitis A IgM Ab Non-reactive Hep Bs Antigen Non-reactive Hep B Core IgM Ab Non-reactive Hepatitis C Antibody Non-reactive 08/16/19 08/16/19 08/17/19 18:05 19:40 06:20 WBC RBC Hgb Hct MCV MCH MCHC RDW Plt Count Lymph % (Auto) [place] % (Auto) Eos % (Auto) Baso % (Auto) Lymph # [place] # Eos # Baso # Seg Neutrophils % Seg Neutrophils # PT INR Sodium 136 L Potassium 4.0 Chloride 102.6 Carbon Dioxide 17 L Anion Gap 20 BUN 13 Creatinine 0.9 Estimated GFR > 60 BUN/Creatinine Ratio 14 Glucose 199 H POC Glucose 220 H 294 H Calcium 8.0 L Total Bilirubin Direct Bilirubin Indirect Bilirubin AST ALT Alkaline Phosphatase Total Protein Albumin Albumin/Globulin Ratio Triglycerides Hepatitis A IgM Ab Hep Bs Antigen Hep B Core IgM Ab Hepatitis C Antibody 08/17/19 08/17/19 11:14 13:49 WBC RBC Hgb Hct MCV MCH MCHC RDW Plt Count Lymph % (Auto) [place] % (Auto) Eos % (Auto) Baso % (Auto) Lymph # [place] # Eos # Baso # Seg Neutrophils % Seg Neutrophils # PT INR Sodium Potassium Chloride Carbon Dioxide Anion Gap BUN Creatinine Estimated GFR BUN/Creatinine Ratio Glucose POC Glucose 243 H 243 H Calcium Total Bilirubin Direct Bilirubin Indirect Bilirubin AST ALT Alkaline Phosphatase Total Protein Albumin Albumin/Globulin Ratio Triglycerides Hepatitis A IgM Ab Hep Bs Antigen Hep B Core IgM Ab Hepatitis C Antibody
[2019-08-17 15:28] LABS: Hematocrit 35.5 % (35.5-45.6); Hemoglobin 11.6 gm/dl (11.8-15.2); Mean Corpuscular HGB Conc 33 % (32-34); Mean Corpuscular Volume 93 fl (84-94); Platelet Count 247 K/mm3 (140-440); Red Blood Count 3.84 M/mm3 (3.65-5.03); Red Cell Distribution Width 15.9 % (13.2-15.2)
[2019-08-17 15:43] LABS: Alanine Aminotransferase 11 units/L (7-56); Albumin 3.5 g/dL (3.9-5); BUN/Creatinine Ratio 11; Blood Urea Nitrogen 10 mg/dL (9-20); Calcium 8.6 mg/dL (8.4-10.2); Hemolysis Index 0
[2019-08-17] MEDS: D5W/0.45% NACL/KCL 20 MEQ 20 MEQ/1,000 ML BAG IV SCH (16:32)
--- NOTE | 2019-08-17 17:23 | Progress Note ---
Assessment and Plan (1) DKA (diabetic ketoacidoses) Status: Acute Improved D/c on Novolin 70/30 sq 16 BID (2) Acidosis Status: Acute Plan to address problem: IV fluid resuscitation therapy, BMP, IV bicarbonate therapy, repeat BMP in a.m. (3) Alcoholic pancreatitis Status: Acute Qualifiers: Acute pancreatitis complication: no infection or necrosis Plan to address problem: Bowel rest, IV fluid resuscitation therapy, CT abdomen and pelvis, GI team consulted in ED Improving (4) Alcohol abuse Status: Acute Plan to address problem: CIWA protocol, banana bag, IV fluid resuscitation therapy, behavior change counseling +15 minutes (5) SIRS (systemic inflammatory response syndrome) Status: Acute Plan to address problem: Empiric IV antibiotic therapy, CBC, CMP, CT abdomen pelvis, chest x-ray, urinalysis. (6) Obesity hypoventilation syndrome Status: Acute Plan to address problem: Supplemental oxygen, nebulizer therapy, pulse oximetry, noninvasive positive pressure ventilation as clinically indicated. ( 7)ERINN IV fluids (8)Hematuria Urology consult (9) DVT prophylaxis Status: Acute Plan to address problem: SCD to bilateral lower extremities while in bed, prophylactic heparin Subjective Date of service: 08/17/19 Principal diagnosis: elevated LFTs, abd pain Interval history: 38-year-old male with hypertension, obesity hypoventilation syndrome, alcohol dependence presents to emergency department for evaluation. Patient states that he has experienced abdominal pain over the past 3 to 4 days. Patient states that his pain is constant and is localized to the lower region of his abdomen. Patient also acknowledges polydipsia, polyuria, and polyphagia. Patient states that he drinks vodka daily and that his last drink of vodka was 2 days ago. Patient transported to ED via private vehicle. Patient seen and evaluated in the emergency department. Patient labs and imaging studies were reviewed. Patient was found to have diabetic ketoacidosis with concomitant metabolic acidosis as well as systemic inflammatory response syndrome, and acute kidney injury, and alcoholic pancreatitis. Patient admitted to [facility] and initiated on DKA protocol. Patient admitted for medical stabilization due to high likelihood of worsening symptoms and decompensation. GI team consulted in the emergency department. Patient denies fever, chills, chest pain, palpitations, syncope, trauma, unilateral leg swelling, prolonged travel, individual/family history of DVT, PE, bleeding or blood clotting disorders. No prior admission for review. No medication listed at time of admission for reconciliation. C/o Hematuria Objective - Constitutional Vitals: Vital Signs - 12hr 08/17/19 08/17/19 08/17/19 05:31 05:45 06:01 Temperature Pulse Rate 136 H 128 H 128 H Respiratory 14 25 H 34 H Rate Blood Pressure 136/79 115/84 114/64 O2 Sat by Pulse 97 96 98 Oximetry 08/17/19 08/17/19 08/17/19 07:01 08:00 09:00 Temperature Pulse Rate 122 H 123 H 120 H Respiratory 25 H 26 H 28 H Rate Blood Pressure 126/90 127/75 127/89 O2 Sat by Pulse 99 94 99 Oximetry 08/17/19 08/17/19 08/17/19 10:01 10:21 10:30 Temperature Pulse Rate 130 H 132 H 129 H Respiratory 16 15 30 H Rate Blood Pressure 128/104 128/85 121/83 O2 Sat by Pulse 94 94 92 Oximetry 08/17/19 08/17/19 08/17/19 10:41 10:51 11:00 Temperature Pulse Rate 125 H 123 H 123 H Respiratory 21 21 24 Rate Blood Pressure 121/83 135/85 132/95 O2 Sat by Pulse 95 94 94 Oximetry 08/17/19 08/17/19 11:10 12:58 Temperature 100.9 F H Pulse Rate 125 H 124 H Respiratory 23 20 Rate Blood Pressure 132/95 130/85 O2 Sat by Pulse 93 95 Oximetry General appearance: Present: no acute distress, well-nourished - EENT Eyes: PERRL, EOM intact ENT: hearing intact, clear oral mucosa Ears: bilateral: normal - Neck Neck: supple, normal ROM - Respiratory Respiratory effort: normal Respiratory: bilateral: CTA - Breasts Breasts: normal - Cardiovascular Heart rate: 78 Rhythm: regular Heart Sounds: Present: S1 & S2. Absent: gallop, rub Extremities: pulses intact, No edema, normal color, Full ROM - Gastrointestinal General gastrointestinal: Present: soft, non-tender, non-distended, normal bowel sounds - Genitourinary Male genitourinary: normal - Integumentary Integumentary: clear, warm, dry - Musculoskeletal Musculoskeletal: 1, strength equal bilaterally - Neurologic Neurologic: moves all extremities - Psychiatric Psychiatric: memory intact, appropriate mood/affect, intact judgment & insight - Labs CBC & Chem 7: 08/18/19 05:38 08/18/19 05:38 Labs: Abnormal lab results 08/16/19 08/16/19 08/17/19 Range/Units 18:05 19:40 06:20 Hgb (11.8-15.2) gm/dl RDW (13.2-15.2) % Sodium 136 L (137-145) mmol/L Carbon Dioxide 17 L (22-30) mmol/L Glucose 199 H (75-100) mg/dL POC Glucose 220 H 294 H (70-105) Calcium 8.0 L (8.4-10.2) mg/dL Total Bilirubin (0.1-1.2) mg/dL C-Reactive Protein (0.00-1.30) mg/dL Albumin (3.9-5) g/dL Lipase (13-60) units/L 08/17/19 08/17/19 08/17/19 Range/Units 11:14 13:49 14:49 Hgb 11.6 L (11.8-15.2) gm/dl RDW 15.9 H (13.2-15.2) % Sodium (137-145) mmol/L Carbon Dioxide (22-30) mmol/L Glucose (75-100) mg/dL POC Glucose 243 H 243 H (70-105) Calcium (8.4-10.2) mg/dL Total Bilirubin (0.1-1.2) mg/dL C-Reactive Protein (0.00-1.30) mg/dL Albumin (3.9-5) g/dL Lipase (13-60) units/L 08/17/19 Range/Units 14:49 Hgb (11.8-15.2) gm/dl RDW (13.2-15.2) % Sodium 135 L (137-145) mmol/L Carbon Dioxide 20 L (22-30) mmol/L Glucose 228 H (75-100) mg/dL POC Glucose (70-105) Calcium (8.4-10.2) mg/dL Total Bilirubin 1.60 H (0.1-1.2) mg/dL C-Reactive Protein 35.20 H (0.00-1.30) mg/dL Albumin 3.5 L (3.9-5) g/dL Lipase 111 H (13-60) units/L
[2019-08-17 17:25] LABS: Basophils % (Manual) 0 % (0.0-1.8); Eosinophils % (Manual) 0 % (0.0-4.3); RBC Morphology Normal; Total Cells Counted 100
[2019-08-17] MEDS ORDERED: ACETAMINOPHEN 325 MG TAB ONE (22:19)
[2019-08-17] MEDS: LORazepam 2 MG/ML VIAL IV PRN (22:49)
[2019-08-18] MEDS ORDERED: ACETAMINOPHEN 325 MG TAB PO ONE
[2019-08-18] MEDS: INSULIN LISPRO 100 UNIT/ML SUB-Q SCH ×6 (02:00→23:58)
[2019-08-18 06:10] LABS: Hematocrit 33.7 % (35.5-45.6); Hemoglobin 10.8 gm/dl (11.8-15.2); Mean Corpuscular HGB Conc 32 % (32-34); Mean Corpuscular Volume 91 fl (84-94); Platelet Count 257 K/mm3 (140-440); Red Blood Count 3.69 M/mm3 (3.65-5.03); Red Cell Distribution Width 15.2 % (13.2-15.2)
[2019-08-18 06:26] LABS: Alanine Aminotransferase 12 units/L (7-56); BUN/Creatinine Ratio 8; Blood Urea Nitrogen 7 mg/dL (9-20); Calcium 8.2 mg/dL (8.4-10.2); Hemolysis Index 0
[2019-08-18 10:16] LABS: Eosinophils # (Auto) 0.1 K/mm3 (0.0-0.4); Eosinophils % (Auto) 1.2 % (0.0-4.3); Monocytes # (Auto) 1.3 K/mm3 (0.0-0.8); Monocytes % (Auto) 14.7 % (0.0-7.3)
[2019-08-18] MEDS: D5W/0.45% NACL/KCL 20 MEQ 20 MEQ/1,000 ML BAG IV SCH ×2 (10:38→21:54)
[2019-08-18] MEDS: PANTOPRAZOLE 40 MG TAB PO SCH (10:39)
[2019-08-18] MEDS: amLODIPine 10 MG TAB PO SCH (10:39)
[2019-08-18] MEDS: INSULIN NPH/REGULAR 70/30 INJ SUB-Q SCH ×2 (10:39→19:23)
[2019-08-18] MEDS: HEPARIN 5,000 UNIT/1 ML VIAL SUB-Q SCH ×2 (10:40→21:53)
[2019-08-18] MEDS: SUCRALFATE 1 GM/10 ML ORAL LIQD PO SCH ×2 (10:40)
--- NOTE | 2019-08-18 10:41 | Gastroenterology Progress Note ---
Assessment and Plan - Patient Problems (1) Alcoholic pancreatitis Current Visit: Yes Status: Acute Qualifiers: Acute pancreatitis complication: no infection or necrosis Plan to address problem: - Improving labs/vitals, and no necrosis on CT scan. - OK to continue current diet, and medication profile (will add MVI and convert Protonix to daily not BID). - OK to d/c home when taking PO, and pain able to be managed with PO medications. - No further recs at present; OK to d/c home per our service as above. - Will sign off; please call if needed. Subjective Date of service: 08/18/19 Principal diagnosis: Pancreatitis Interval history: The patient is tolerating some of every tray. No F/C, and his abdominal pain is stable. Objective - Constitutional Vitals: Temp Pulse Resp BP Pulse Ox 98.9 F 116 H 20 147/95 93 08/18/19 05:08 08/18/19 05:08 08/18/19 05:08 08/18/19 10:39 08/18/19 05:08 General appearance: no acute distress - Respiratory Respiratory effort: normal Respiratory: bilateral: CTA - Cardiovascular Rhythm: regular Heart Sounds: Present: S1 & S2 - Gastrointestinal General gastrointestinal: Present: soft, non-tender, non-distended - Labs CBC & Chem 7: 08/18/19 05:38 08/18/19 05:38 Labs: Laboratory Results - last 24 hr 08/17/19 08/17/19 08/17/19 11:14 13:49 14:49 WBC 10.5 RBC 3.84 Hgb 11.6 L Hct 35.5 MCV 93 MCH 30 MCHC 33 RDW 15.9 H Plt Count 247 [place] % (Auto) Eos % (Auto) [place] # Eos # Baso # Add Manual Diff Complete Total Counted 100 Seg Neutrophils % Seg Neuts % (Manual) 82.0 H Band Neutrophils % 0 Lymphocytes % (Manual) 10.0 L Reactive Lymphs % (Man) 0 Monocytes % (Manual) 8.0 H Eosinophils % (Manual) 0 Basophils % (Manual) 0 Metamyelocytes % 0 Myelocytes % 0 Promyelocytes % 0 Blast Cells % 0 Nucleated RBC % Not Reportable Seg Neutrophils # Seg Neutrophils # Man 8.6 H Band Neutrophils # 0.0 Lymphocytes # (Manual) 1.1 L Abs React Lymphs (Man) 0.0 Monocytes # (Manual) 0.8 Eosinophils # (Manual) 0.0 Basophils # (Manual) 0.0 Metamyelocytes # 0.0 Myelocytes # 0.0 Promyelocytes # 0.0 Blast Cells # 0.0 WBC Morphology Not Reportable Hypersegmented Neuts Not Reportable Hyposegmented Neuts Not Reportable Hypogranular Neuts Not Reportable Smudge Cells Not Reportable Toxic Granulation Not Reportable Toxic Vacuolation Not Reportable Dohle Bodies Not Reportable Pelger-Huet Anomaly Not Reportable Mann Rods Not Reportable Platelet Estimate Not Reportable Clumped Platelets Not Reportable Plt Clumps, EDTA Not Reportable Large Platelets Not Reportable Giant Platelets Not Reportable Platelet Satelliting Not Reportable Plt Morphology Comment Not Reportable RBC Morphology Normal Dimorphic RBCs Not Reportable Polychromasia Not Reportable Hypochromasia Not Reportable Poikilocytosis Not Reportable Anisocytosis Not Reportable Microcytosis Not Reportable Macrocytosis Not Reportable Spherocytes Not Reportable Pappenheimer Bodies Not Reportable Sickle Cells Not Reportable Target Cells Not Reportable Tear Drop Cells Not Reportable Ovalocytes Not Reportable Helmet Cells Not Reportable Price-[place]ont[place] Bodies Not Reportable [place] Rings Not Reportable Dell Cells Not Reportable Bite Cells Not Reportable Crenated Cell Not Reportable Elliptocytes Not Reportable Acanthocytes (Spur) Not Reportable Rouleaux Not Reportable Hemoglobin C Crystals Not Reportable Schistocytes Not Reportable Malaria parasites Not Reportable Lewis Bodies Not Reportable Hem Pathologist Commnt No Sodium Potassium Chloride Carbon Dioxide Anion Gap BUN Creatinine Estimated GFR BUN/Creatinine Ratio Glucose POC Glucose 243 H 243 H Calcium Total Bilirubin AST ALT Alkaline Phosphatase Ammonia C-Reactive Protein Total Protein Albumin Albumin/Globulin Ratio Amylase Lipase 08/17/19 08/17/19 08/17/19 14:49 17:33 21:44 WBC RBC Hgb Hct MCV MCH MCHC RDW Plt Count [place] % (Auto) Eos % (Auto) [place] # Eos # Baso # Add Manual Diff Total Counted Seg Neutrophils % Seg Neuts % (Manual) Band Neutrophils % Lymphocytes % (Manual) Reactive Lymphs % (Man) Monocytes % (Manual) Eosinophils % (Manual) Basophils % (Manual) Metamyelocytes % Myelocytes % Promyelocytes % Blast Cells % Nucleated RBC % Seg Neutrophils # Seg Neutrophils # Man Band Neutrophils # Lymphocytes # (Manual) Abs React Lymphs (Man) Monocytes # (Manual) Eosinophils # (Manual) Basophils # (Manual) Metamyelocytes # Myelocytes # Promyelocytes # Blast Cells # WBC Morphology Hypersegmented Neuts Hyposegmented Neuts Hypogranular Neuts Smudge Cells Toxic Granulation Toxic Vacuolation Dohle Bodies Pelger-Huet Anomaly Mann Rods Platelet Estimate Clumped Platelets Plt Clumps, EDTA Large Platelets Giant Platelets Platelet Satelliting Plt Morphology Comment RBC Morphology Dimorphic RBCs Polychromasia Hypochromasia Poikilocytosis Anisocytosis Microcytosis Macrocytosis Spherocytes Pappenheimer Bodies Sickle Cells Target Cells Tear Drop Cells Ovalocytes Helmet Cells Price-[place]ont[place] Bodies [place] Rings Edelstein Cells Bite Cells Crenated Cell Elliptocytes Acanthocytes (Spur) Rouleaux Hemoglobin C Crystals Schistocytes Malaria parasites Lewis Bodies Hem Pathologist Commnt Sodium 135 L Potassium 4.2 Chloride 99.7 Carbon Dioxide 20 L Anion Gap 20 BUN 10 Creatinine 0.9 Estimated GFR > 60 BUN/Creatinine Ratio 11 Glucose 228 H POC Glucose 225 H 238 H Calcium 8.6 Total Bilirubin 1.60 H AST 32 ALT 11 Alkaline Phosphatase 64 Ammonia C-Reactive Protein 35.20 H Total Protein 7.2 Albumin 3.5 L Albumin/Globulin Ratio 0.9 Amylase Lipase 111 H 08/18/19 08/18/19 08/18/19 02:34 05:16 05:38 WBC 9.4 RBC 3.69 Hgb 10.8 L Hct 33.7 L MCV 91 MCH 29 MCHC 32 RDW 15.2 Plt Count 257 [place] % (Auto) 14.7 H Eos % (Auto) 1.2 [place] # 1.3 H Eos # 0.1 Baso # 0.0 Add Manual Diff Total Counted Seg Neutrophils % 73.7 H Seg Neuts % (Manual) Band Neutrophils % Lymphocytes % (Manual) Reactive Lymphs % (Man) Monocytes % (Manual) Eosinophils % (Manual) Basophils % (Manual) Metamyelocytes % Myelocytes % Promyelocytes % Blast Cells % Nucleated RBC % Seg Neutrophils # 6.6 Seg Neutrophils # Man Band Neutrophils # Lymphocytes # (Manual) Abs React Lymphs (Man) Monocytes # (Manual) Eosinophils # (Manual) Basophils # (Manual) Metamyelocytes # Myelocytes # Promyelocytes # Blast Cells # WBC Morphology Hypersegmented Neuts Hyposegmented Neuts Hypogranular Neuts Smudge Cells Toxic Granulation Toxic Vacuolation Dohle Bodies Pelger-Huet Anomaly Mann Rods Platelet Estimate Clumped Platelets Plt Clumps, EDTA Large Platelets Giant Platelets Platelet Satelliting Plt Morphology Comment RBC Morphology Dimorphic RBCs Polychromasia Hypochromasia Poikilocytosis Anisocytosis Microcytosis Macrocytosis Spherocytes Pappenheimer Bodies Sickle Cells Target Cells Tear Drop Cells Ovalocytes Helmet Cells Price-[place]ont[place] Bodies [place] Rings Edelstein Cells Bite Cells Crenated Cell Elliptocytes Acanthocytes (Spur) Rouleaux Hemoglobin C Crystals Schistocytes Malaria parasites Lewis Bodies Hem Pathologist Commnt Sodium Potassium Chloride Carbon Dioxide Anion Gap BUN Creatinine Estimated GFR BUN/Creatinine Ratio Glucose POC Glucose 189 H 193 H Calcium Total Bilirubin AST ALT Alkaline Phosphatase Ammonia C-Reactive Protein Total Protein Albumin Albumin/Globulin Ratio Amylase Lipase 08/18/19 08/18/19 08/18/19 05:38 05:38 10:17 WBC RBC Hgb Hct MCV MCH MCHC RDW Plt Count [place] % (Auto) Eos % (Auto) [place] # Eos # Baso # Add Manual Diff Total Counted Seg Neutrophils % Seg Neuts % (Manual) Band Neutrophils % Lymphocytes % (Manual) Reactive Lymphs % (Man) Monocytes % (Manual) Eosinophils % (Manual) Basophils % (Manual) Metamyelocytes % Myelocytes % Promyelocytes % Blast Cells % Nucleated RBC % Seg Neutrophils # Seg Neutrophils # Man Band Neutrophils # Lymphocytes # (Manual) Abs React Lymphs (Man) Monocytes # (Manual) Eosinophils # (Manual) Basophils # (Manual) Metamyelocytes # Myelocytes # Promyelocytes # Blast Cells # WBC Morphology Hypersegmented Neuts Hyposegmented Neuts Hypogranular Neuts Smudge Cells Toxic Granulation Toxic Vacuolation Dohle Bodies Pelger-Huet Anomaly Mann Rods Platelet Estimate Clumped Platelets Plt Clumps, EDTA Large Platelets Giant Platelets Platelet Satelliting Plt Morphology Comment RBC Morphology Dimorphic RBCs Polychromasia Hypochromasia Poikilocytosis Anisocytosis Microcytosis Macrocytosis Spherocytes Pappenheimer Bodies Sickle Cells Target Cells Tear Drop Cells Ovalocytes Helmet Cells Price-[place]ont[place] Bodies [place] Rings Edelstein Cells Bite Cells Crenated Cell Elliptocytes Acanthocytes (Spur) Rouleaux Hemoglobin C Crystals Schistocytes Malaria parasites Lewis Bodies Hem Pathologist Commnt Sodium 136 L Potassium 3.5 L Chloride 100.3 Carbon Dioxide 22 Anion Gap 17 BUN 7 L Creatinine 0.9 Estimated GFR > 60 BUN/Creatinine Ratio 8 Glucose 196 H POC Glucose 238 H Calcium 8.2 L Total Bilirubin 1.20 AST 40 ALT 12 Alkaline Phosphatase 69 Ammonia 54.0 C-Reactive Protein Total Protein 6.3 Albumin 3.0 L Albumin/Globulin Ratio 0.9 Amylase 51 Lipase
[2019-08-18 11:32] LABS: Basophils % (Manual) 0 % (0.0-1.8); Eosinophils % (Manual) 0 % (0.0-4.3); Total Cells Counted 100
[2019-08-18 11:35] LABS: Schistocytes Few
[2019-08-18 11:37] LABS: Platelet Estimate Consistent w Auto
[2019-08-18] MEDS: IBUPROFEN 600 MG TAB PO PRN ×2 (12:09→21:53)
[2019-08-18] MEDS: cefTRIAXone/NS 2 GM/100 ML 2 GM/100 ML BAG IV SCH (15:12)
--- NOTE | 2019-08-18 17:37 | Progress Note ---
Assessment and Plan (1) DKA (diabetic ketoacidoses) Status: Acute Improved D/c on Novolin 70/30 sq 16 BID (2) Acidosis Status: Acute Plan to address problem: IV fluid resuscitation therapy, BMP, IV bicarbonate therapy, repeat BMP in a.m. (3) Alcoholic pancreatitis Status: Acute Qualifiers: Acute pancreatitis complication: no infection or necrosis Plan to address problem: Bowel rest, IV fluid resuscitation therapy, CT abdomen and pelvis, GI team consulted in ED Improving Advance diet (4) Alcohol abuse Status: Acute Plan to address problem: CIWA protocol, banana bag, IV fluid resuscitation therapy, behavior change counseling +15 minutes (5) SIRS (systemic inflammatory response syndrome) Status: Acute Plan to address problem: Empiric IV antibiotic therapy, CBC, CMP, CT abdomen pelvis, chest x-ray, urin alysis. (6) Obesity hypoventilation syndrome Status: Acute Plan to address problem: Supplemental oxygen, nebulizer therapy, pulse oximetry, noninvasive positive pressure ventilation as clinically indicated. ( 7)ERINN IV fluids Improved (8)Hematuria Urology consult (9) DVT prophylaxis Status: Acute Plan to address problem: SCD to bilateral lower extremities while in bed, prophylactic heparin D/c home if Urology clears Subjective Date of service: 08/18/19 Principal diagnosis: elevated LFTs, abd pain Interval history: 38-year-old male with hypertension, obesity hypoventilation syndrome, alcohol dependence presents to emergency department for evaluation. Patient states that he has experienced abdominal pain over the past 3 to 4 days. Patient states that his pain is constant and is localized to the lower region of his abdomen. Patient also acknowledges polydipsia, polyuria, and polyphagia. Patient states that he drinks vodka daily and that his last drink of vodka was 2 days ago. Patient transported to ED via private vehicle. Patient seen and evaluated in the emergency department. Patient labs and imaging studies were reviewed. Patient was found to have diabetic ketoacidosis with concomitant metabolic acidosis as well as systemic inflammatory response syndrome, and acute kidney injury, and alcoholic pancreatitis. Patient admitted to IM and initiated on DKA protocol. Patient admitted for medical stabilization due to high likelihood of worsening symptoms and decompensation. GI team consulted in the emergency department. Patient denies fever, chills, chest pain, palpitations, syncope, trauma, unilateral leg swelling, prolonged travel, individual/family history of DVT, PE, bleeding or blood clotting disorders. No prior admission for review. No medication listed at time of admission for reconciliation. C/o Hematuria Abd pain improved Objective - Constitutional Vitals: Vital Signs - 12hr 08/18/19 08/18/19 08/18/19 10:35 10:39 11:26 Temperature 102 F H Pulse Rate 129 H Respiratory 18 Rate Blood Pressure 147/95 147/95 O2 Sat by Pulse 98 Oximetry 08/18/19 08/18/19 08/18/19 11:32 14:13 15:08 Temperature 99.3 F 99.4 F Pulse Rate 118 H 114 H Respiratory 15 Rate Blood Pressure 123/90 O2 Sat by Pulse 96 95 Oximetry General appearance: Present: no acute distress, well-nourished - EENT Eyes: PERRL, EOM intact ENT: hearing intact, clear oral mucosa Ears: bilateral: normal - Neck Neck: supple, normal ROM - Respiratory Respiratory effort: normal Respiratory: bilateral: CTA - Breasts Breasts: normal - Cardiovascular Heart rate: 78 Rhythm: regular Heart Sounds: Present: S1 & S2. Absent: gallop, rub Extremities: pulses intact, No edema, normal color, Full ROM - Gastrointestinal General gastrointestinal: Present: soft, non-tender, non-distended, normal bowel sounds - Genitourinary Male genitourinary: normal - Integumentary Integumentary: clear, warm, dry - Musculoskeletal Musculoskeletal: 1, strength equal bilaterally - Neurologic Neurologic: moves all extremities - Psychiatric Psychiatric: memory intact, appropriate mood/affect, intact judgment & insight - Labs CBC & Chem 7: 08/18/19 05:38 08/18/19 05:38 Labs: Abnormal lab results 08/17/19 08/18/19 08/18/19 Range/Units 21:44 02:34 05:16 Hgb (11.8-15.2) gm/dl Hct (35.5-45.6) % [place] % (Auto) (0.0-7.3) % [place] # (0.0-0.8) K/mm3 Seg Neutrophils % (40.0-70.0) % Seg Neuts % (Manual) (40.0-70.0) % Lymphocytes % (Manual) (13.4-35.0) % Monocytes % (Manual) (0.0-7.3) % Nucleated RBC % (0.0-0.9) % Seg Neutrophils # Man (1.8-7.7) K/mm3 Lymphocytes # (Manual) (1.2-5.4) K/mm3 Sodium (137-145) mmol/L Potassium (3.6-5.0) mmol/L BUN (9-20) mg/dL Glucose (75-100) mg/dL POC Glucose 238 H 189 H 193 H (70-105) Calcium (8.4-10.2) mg/dL Albumin (3.9-5) g/dL 08/18/19 08/18/19 08/18/19 Range/Units 05:38 05:38 10:17 Hgb 10.8 L (11.8-15.2) gm/dl Hct 33.7 L (35.5-45.6) % [place] % (Auto) 14.7 H (0.0-7.3) % [place] # 1.3 H (0.0-0.8) K/mm3 Seg Neutrophils % 73.7 H (40.0-70.0) % Seg Neuts % (Manual) 85.0 H (40.0-70.0) % Lymphocytes % (Manual) 6.0 L (13.4-35.0) % Monocytes % (Manual) 9.0 H (0.0-7.3) % Nucleated RBC % 2.0 H (0.0-0.9) % Seg Neutrophils # Man 8.0 H (1.8-7.7) K/mm3 Lymphocytes # (Manual) 0.6 L (1.2-5.4) K/mm3 Sodium 136 L (137-145) mmol/L Potassium 3.5 L (3.6-5.0) mmol/L BUN 7 L (9-20) mg/dL Glucose 196 H (75-100) mg/dL POC Glucose 238 H (70-105) Calcium 8.2 L (8.4-10.2) mg/dL Albumin 3.0 L (3.9-5) g/dL 08/18/19 Range/Units 15:21 Hgb (11.8-15.2) gm/dl Hct (35.5-45.6) % [place] % (Auto) (0.0-7.3) % [place] # (0.0-0.8) K/mm3 Seg Neutrophils % (40.0-70.0) % Seg Neuts % (Manual) (40.0-70.0) % Lymphocytes % (Manual) (13.4-35.0) % Monocytes % (Manual) (0.0-7.3) % Nucleated RBC % (0.0-0.9) % Seg Neutrophils # Man (1.8-7.7) K/mm3 Lymphocytes # (Manual) (1.2-5.4) K/mm3 Sodium (137-145) mmol/L Potassium (3.6-5.0) mmol/L BUN (9-20) mg/dL Glucose (75-100) mg/dL POC Glucose 217 H (70-105) Calcium (8.4-10.2) mg/dL Albumin (3.9-5) g/dL
[2019-08-18] MEDS: LORazepam 2 MG/ML VIAL IV PRN (23:59)
[2019-08-19] MEDS: SODIUM CHLORIDE 0.9% 1000 ML 1,000 ML IV SCH ×2 (08:30→20:11)
[2019-08-19] MEDS: INSULIN LISPRO 100 UNIT/ML SUB-Q SCH ×4 (08:54→22:16)
[2019-08-19] MEDS: cefTRIAXone/NS 2 GM/100 ML 2 GM/100 ML BAG IV SCH (09:16)
[2019-08-19] MEDS: MULTIVITAMINS ,THERAPEUTIC TAB PO SCH (09:16)
[2019-08-19] MEDS: PANTOPRAZOLE 40 MG TAB PO SCH (09:16)
[2019-08-19] MEDS: amLODIPine 10 MG TAB PO SCH (09:17)
[2019-08-19] MEDS: HEPARIN 5,000 UNIT/1 ML VIAL SUB-Q SCH ×2 (09:17→22:17)
[2019-08-19] MEDS: INSULIN NPH/REGULAR 70/30 INJ SUB-Q SCH ×2 (09:17→17:18)
--- NOTE | 2019-08-19 11:28 | Consultation ---
History of Present Illness - Reason for Consult Consult date: 08/19/19 - History of Present Illness NEW TO OUR SERVICE CC; GROSS HEMATURIA (consult yesterday - spoke with nurse & Dr. Valderrama) 38-year-old male with hypertension, obesity hypoventilation syndrome, alcohol dependence presents to emergency department for evaluation. Patient states that he has experienced abdominal pain over the past 3 to 4 days. Patient states that his pain is constant and is localized to the lower region of his abdomen. Patient also acknowledges polydipsia, polyuria, and polyphagia. Patient states that he drinks vodka daily and that his last drink of vodka was 2 days ago. Patient transported to ED via private vehicle. Patient seen and evaluated in the emergency department. Patient was found to have diabetic ketoacidosis with concomitant metabolic acidosis as well as systemic inflammatory response syndrome, and acute kidney injury, and alcoholic pancreatitis. Patient admitted to IMCU and initiated on DKA protocol. Patient admitted for medical stabilization due to high likelihood of worsening symptoms and decompensation. GI team consulted in the emergency department. Patient denies fever, chills, chest pain, palpitations, syncope, trauma, unilateral leg swelling, prolonged travel, individual/family history of DVT, PE, bleeding or blood clotting disorders. No prior admission for review. No medication listed at time of admission for reconciliation. Several days of gross hematuria. + hx of stones---passed Family at bedside (mother in law, male family member) NKDA / NON SMOKER / LOWER BACK SURGERY 5+YRS AGO-[facility] abd - non tender urine clear- container at bedside CT scan- pancreatitis, no gu issues A/P Gross Hematuria-- clear now, no voiding issues needs outpt cysto (can do with me or in [facility]) Acute pancreatitis complication: no infection or necrosis - No further recs at present; OK to d/c home per our service - Will sign off; please call if needed. Past History Past Medical History: hypertension, hyperlipidemia Past Surgical History: Other (back) Social history: alcohol abuse Family history: no significant family history Medications and Allergies Allergies Allergy/AdvReac Type Severity Reaction Status Date / Time No Known Allergies Allergy Unverified 08/15/19 14:45 Home Medications Medication Instructions Recorded Confirmed Last Taken Type AtorvaSTATin [Lipitor] 40 mg PO QHS 08/16/19 08/16/19 Unknown History amLODIPine [Norvasc] 10 mg PO DAILY 08/16/19 08/16/19 Unknown History Active Meds: Active Medications Albuterol (Proventil) 2.5 mg IH Q3HRT PRN PRN Reason: Shortness Of Breath Amlodipine Besylate (Amlodipine) 10 mg PO DAILY [facility] Last Admin: 08/19/19 09:17 Dose: 10 mg Documented by: Dextrose (D50w (25gm) Syringe) 0 ml IV Q30MIN PRN; Protocol PRN Reason: Hypoglycemia Heparin Sodium (Porcine) (Heparin) 5,000 unit SUB-Q Q12HR LUZ Last Admin: 08/19/19 09:17 Dose: 5,000 unit Documented by: Potassium Chloride/Dextrose/Sod Cl (D5w/0.45% Nacl/Kcl 20 Meq) 20 meq in 1,000 mls @ 125 mls/hr IV DIRECT LUZ Last Admin: 08/18/19 21:54 Dose: 125 mls/hr Documented by: Sodium Chloride (Nacl 0.9% 1000 Ml) 1,000 mls @ 150 mls/hr IV DIRECT LUZ Last Admin: 08/19/19 08:30 Dose: 150 mls/hr Documented by: Ceftriaxone Sodium (Rocephin/Ns 2 Gm/100 Ml) 2 gm in 100 mls @ 200 mls/hr IV Q24HR LUZ; Protocol Last Admin: 08/19/19 09:16 Dose: 200 mls/hr Documented by: Ibuprofen (Ibuprofen) 600 mg PO Q6H PRN PRN Reason: Pain, Mild (1-3) Last Admin: 08/18/19 21:53 Dose: 600 mg Documented by: Insulin Human Isoph/Insulin Regular (Humulin 70/30) 12 unit SUB-Q BIDDIAB LUZ Last Admin: 08/19/19 09:17 Dose: 12 unit Documented by: Insulin Human Lispro (Humalog) 0 unit SUB-Q ACHS LUZ; Protocol Last Admin: 08/19/19 08:54 Dose: 3 unit Documented by: Lorazepam (Ativan) 2 mg IV Q1HR PRN PRN Reason: DARELL-Shaw 8-15 Last Admin: 08/18/19 23:59 Dose: 2 mg Documented by: Lorazepam (Ativan) 4 mg IV Q1HR PRN PRN Reason: Arian 16-25 Last Admin: 08/17/19 22:49 Dose: 4 mg Documented by: Lorazepam (Ativan) 4 mg IV Q15MIN PRN PRN Reason: CIWA-Ar >25 Multivitamins (Theragran Tab) 1 each PO QDAY [facility] Last Admin: 08/19/19 09:16 Dose: 1 each Documented by: Pantoprazole Sodium (Protonix) 40 mg PO DAILY [facility] Last Admin: 08/19/19 09:16 Dose: 40 mg Documented by: Sodium Chloride (Sodium Chloride Flush Syringe 10 Ml) 10 ml IV BID [facility] Last Admin: 08/19/19 09:17 Dose: 10 ml Documented by: Sodium Chloride (Sodium Chloride Flush Syringe 10 Ml) 10 ml IV PRN PRN PRN Reason: LINE FLUSH Exam - Constitutional Vitals: Temp Pulse Resp BP Pulse Ox 99.4 F 123 H 21 158/108 95 08/19/19 05:36 08/19/19 09:17 08/19/19 05:36 08/19/19 09:17 08/19/19 05:36 Results - Labs CBC & Chem 7: 08/18/19 05:38 08/18/19 05:38 Labs: Abnormal lab results 08/18/19 08/18/19 08/18/19 Range/Units 05:38 15:21 22:14 Seg Neuts % (Manual) 85.0 H (40.0-70.0) % Lymphocytes % (Manual) 6.0 L (13.4-35.0) % Monocytes % (Manual) 9.0 H (0.0-7.3) % Nucleated RBC % 2.0 H (0.0-0.9) % Seg Neutrophils # Man 8.0 H (1.8-7.7) K/mm3 Lymphocytes # (Manual) 0.6 L (1.2-5.4) K/mm3 POC Glucose 217 H 225 H (70-105) C-Reactive Protein (0.00-1.30) mg/dL 08/19/19 08/19/19 Range/Units 07:59 09:43 Seg Neuts % (Manual) (40.0-70.0) % Lymphocytes % (Manual) (13.4-35.0) % Monocytes % (Manual) (0.0-7.3) % Nucleated RBC % (0.0-0.9) % Seg Neutrophils # Man (1.8-7.7) K/mm3 Lymphocytes # (Manual) (1.2-5.4) K/mm3 POC Glucose 241 H (70-105) C-Reactive Protein 26.70 H (0.00-1.30) mg/dL
[2019-08-19] MEDS: IBUPROFEN 600 MG TAB PO PRN ×2 (12:24→23:50)
[2019-08-19] MEDS: LORazepam 2 MG/ML VIAL IV PRN ×2 (12:35→22:16)
--- NOTE | 2019-08-19 16:29 | Progress Note ---
Assessment and Plan Assessment and plan: (1) DKA (diabetic ketoacidoses) Status: Acute Improved D/c on Novolin 70/30 sq 16 BID (2) Acidosis Status: Acute Plan to address problem: IV fluid resuscitation therapy, BMP, IV bicarbonate therapy, repeat BMP in a.m. (3) Alcoholic pancreatitis Status: Acute Qualifiers: Acute pancreatitis complication: no infection or necrosis Plan to address problem: Bowel rest, IV fluid resuscitation therapy, CT abdomen and pelvis, GI team consulted in ED Improving Advance diet (4) Alcohol abuse Status: Acute Plan to address problem: CIWA protocol, banana bag, IV fluid resuscitation therapy, behavior change counseling +15 minutes (5) SIRS (systemic inflammatory response syndrome) Status: Acute Plan to address problem: Empiric IV antibiotic therapy, CBC, CMP, CT abdomen pelvis, chest x-ray, urinalysis. (6) Obesity hypoventilation syndrome Status: Acute Plan to address problem: Supplemental oxygen, nebulizer therapy, pulse oximetry, noninvasive positive pressure ventilation as clinically indicated. ( 7)ERINN IV fluids Improved (8)Hematuria: Resolved Urology evaluation noted and appreciated (9) DVT prophylaxis Status: Acute Plan to address problem: SCD to bilateral lower extremities while in bed, prophylactic heparin Follow cultures If patient is afebrile more than 24 hours May be discharged home on oral antibiotics History Interval history: Patient seen and examined medical records reviewed Patient feels slightly better Patient spiked temperature of 102 degrees Probably secondary to UTI Vital signs reviewed Hospitalist Physical - Constitutional Vitals: Temp Pulse Resp BP Pulse Ox 102.8 F H 127 H 16 151/95 96 08/19/19 12:03 08/19/19 12:03 08/19/19 12:03 08/19/19 12:03 08/19/19 12:03 General appearance: Present: no acute distress, well-nourished, other (Febrile) - EENT Eyes: Present: PERRL, EOM intact - Neck Neck: Present: supple, normal ROM - Respiratory Respiratory effort: normal Respiratory: bilateral: diminished, negative: rales, rhonchi, wheezing - Cardiovascular Rhythm: regular Heart Sounds: Present: S1 & S2 - Extremities Extremities: no ischemia, No edema - Abdominal General gastrointestinal: soft, non-tender, non-distended, normal bowel sounds - Integumentary Integumentary: Present: clear, warm - Psychiatric Psychiatric: appropriate mood/affect, cooperative - Neurologic Neurologic: moves all extremities Results - Labs CBC & Chem 7: 08/18/19 05:38 08/18/19 05:38 Labs: Laboratory Last Values WBC 9.4 K/mm3 (4.5-11.0) 08/18/19 05:38 RBC 3.69 M/mm3 (3.65-5.03) 08/18/19 05:38 Hgb 10.8 gm/dl (11.8-15.2) L 08/18/19 05:38 Hct 33.7 % (35.5-45.6) L 08/18/19 05:38 MCV 91 fl (84-94) 08/18/19 05:38 MCH 29 pg (28-32) 08/18/19 05:38 MCHC 32 % (32-34) 08/18/19 05:38 RDW 15.2 % (13.2-15.2) 08/18/19 05:38 Plt Count 257 K/mm3 (140-440) 08/18/19 05:38 Lymph % (Auto) 7.9 % (13.4-35.0) L 08/16/19 14:39 [place] % (Auto) 14.7 % (0.0-7.3) H 08/18/19 05:38 Eos % (Auto) 1.2 % (0.0-4.3) 08/18/19 05:38 Baso % (Auto) 0.4 % (0.0-1.8) 08/16/19 14:39 Lymph # 0.9 K/mm3 (1.2-5.4) L 08/16/19 14:39 [place] # 1.3 K/mm3 (0.0-0.8) H 08/18/19 05:38 Eos # 0.1 K/mm3 (0.0-0.4) 08/18/19 05:38 Baso # 0.0 K/mm3 (0.0-0.1) 08/18/19 05:38 Add Manual Diff Complete 08/18/19 05:38 Total Counted 100 08/18/19 05:38 Seg Neutrophils % 73.7 % (40.0-70.0) H 08/18/19 05:38 Seg Neuts % (Manual) 85.0 % (40.0-70.0) H 08/18/19 05:38 Band Neutrophils % 0 % 08/18/19 05:38 Lymphocytes % (Manual) 6.0 % (13.4-35.0) L 08/18/19 05:38 Reactive Lymphs % (Man) 0 % 08/18/19 05:38 Monocytes % (Manual) 9.0 % (0.0-7.3) H 08/18/19 05:38 Eosinophils % (Manual) 0 % (0.0-4.3) 08/18/19 05:38 Basophils % (Manual) 0 % (0.0-1.8) 08/18/19 05:38 Metamyelocytes % 0 % 08/18/19 05:38 Myelocytes % 0 % 08/18/19 05:38 Promyelocytes % 0 % 08/18/19 05:38 Blast Cells % 0 % 08/18/19 05:38 Nucleated RBC % 2.0 % (0.0-0.9) H 08/18/19 05:38 Seg Neutrophils # 6.6 K/mm3 (1.8-7.7) 08/18/19 05:38 Seg Neutrophils # Man 8.0 K/mm3 (1.8-7.7) H 08/18/19 05:38 Band Neutrophils # 0.0 K/mm3 08/18/19 05:38 Lymphocytes # (Manual) 0.6 K/mm3 (1.2-5.4) L 08/18/19 05:38 Abs React Lymphs (Man) 0.0 K/mm3 08/18/19 05:38 Monocytes # (Manual) 0.8 K/mm3 (0.0-0.8) 08/18/19 05:38 Eosinophils # (Manual) 0.0 K/mm3 (0.0-0.4) 08/18/19 05:38 Basophils # (Manual) 0.0 K/mm3 (0.0-0.1) 08/18/19 05:38 Metamyelocytes # 0.0 K/mm3 08/18/19 05:38 Myelocytes # 0.0 K/mm3 08/18/19 05:38 Promyelocytes # 0.0 K/mm3 08/18/19 05:38 Blast Cells # 0.0 K/mm3 08/18/19 05:38 WBC Morphology Not Reportable 08/18/19 05:38 Hypersegmented Neuts Not Reportable 08/18/19 05:38 Hyposegmented Neuts Not Reportable 08/18/19 05:38 Hypogranular Neuts Not Reportable 08/18/19 05:38 Smudge Cells Not Reportable 08/18/19 05:38 Toxic Granulation Not Reportable 08/18/19 05:38 Toxic Vacuolation Not Reportable 08/18/19 05:38 Dohle Bodies Not Reportable 08/18/19 05:38 Pelger-Huet Anomaly Not Reportable 08/18/19 05:38 Mann Rods Not Reportable 08/18/19 05:38 Platelet Estimate Consistent w auto 08/18/19 05:38 Clumped Platelets Not Reportable 08/18/19 05:38 Plt Clumps, EDTA Not Reportable 08/18/19 05:38 Large Platelets Not Reportable 08/18/19 05:38 Giant Platelets Not Reportable 08/18/19 05:38 Platelet Satelliting Not Reportable 08/18/19 05:38 Plt Morphology Comment Not Reportable 08/18/19 05:38 RBC Morphology Not Reportable 08/18/19 05:38 Dimorphic RBCs Not Reportable 08/18/19 05:38 Polychromasia Not Reportable 08/18/19 05:38 Hypochromasia Not Reportable 08/18/19 05:38 Poikilocytosis Not Reportable 08/18/19 05:38 Anisocytosis Not Reportable 08/18/19 05:38 Microcytosis Not Reportable 08/18/19 05:38 Macrocytosis Not Reportable 08/18/19 05:38 Spherocytes Not Reportable 08/18/19 05:38 Pappenheimer Bodies Not Reportable 08/18/19 05:38 Sickle Cells Not Reportable 08/18/19 05:38 Target Cells Not Reportable 08/18/19 05:38 Tear Drop Cells Not Reportable 08/18/19 05:38 Ovalocytes Not Reportable 08/18/19 05:38 Helmet Cells Not Reportable 08/18/19 05:38 Price-Remington Bodies Not Reportable 08/18/19 05:38 [place] Rings Not Reportable 08/18/19 05:38 Dell Cells Not Reportable 08/18/19 05:38 Bite Cells Not Reportable 08/18/19 05:38 Crenated Cell Not Reportable 08/18/19 05:38 Elliptocytes Few 08/18/19 05:38 Acanthocytes (Spur) Not Reportable 08/18/19 05:38 Rouleaux Not Reportable 08/18/19 05:38 Hemoglobin C Crystals Not Reportable 08/18/19 05:38 Schistocytes Few 08/18/19 05:38 Malaria parasites Not Reportable 08/18/19 05:38 Lewis Bodies Not Reportable 08/18/19 05:38 Hem Pathologist Commnt No 08/18/19 05:38 PT 14.5 Sec. (12.2-14.9) 08/16/19 14:39 INR 1.11 (0.87-1.13) 08/16/19 14:39 APTT 26.3 Sec. (24.2-36.6) 08/15/19 16:10 VBG pH 7.423 (7.320-7.420) H 08/15/19 16:15 Sodium 136 mmol/L (137-145) L 08/18/19 05:38 Potassium 3.5 mmol/L (3.6-5.0) L 08/18/19 05:38 Chloride 100.3 mmol/L (98-107) 08/18/19 05:38 Carbon Dioxide 22 mmol/L (22-30) 08/18/19 05:38 Anion Gap 17 mmol/L 08/18/19 05:38 BUN 7 mg/dL (9-20) L 08/18/19 05:38 Creatinine 0.9 mg/dL (0.8-1.5) 08/18/19 05:38 Estimated GFR > 60 ml/min 08/18/19 05:38 BUN/Creatinine Ratio 8 % 08/18/19 05:38 Glucose 196 mg/dL (75-100) H 08/18/19 05:38 POC Glucose 216 (70-105) H 08/19/19 12:17 Lactic Acid 1.60 mmol/L (0.7-2.0) 08/15/19 22:38 Calcium 8.2 mg/dL (8.4-10.2) L 08/18/19 05:38 Phosphorus 1.70 mg/dL (2.5-4.5) L 08/15/19 22:38 Magnesium 2.50 mg/dL (1.7-2.3) H 08/15/19 22:38 Total Bilirubin 1.20 mg/dL (0.1-1.2) 08/18/19 05:38 Direct Bilirubin 0.7 mg/dL (0-0.2) H 08/16/19 14:39 Indirect Bilirubin 1.1 mg/dL 08/16/19 14:39 AST 40 units/L (5-40) 08/18/19 05:38 ALT 12 units/L (7-56) 08/18/19 05:38 Alkaline Phosphatase 69 units/L (35-129) 08/18/19 05:38 Ammonia 54.0 umol/L (25-60) 08/18/19 05:38 Total Creatine Kinase 517 units/L (55-170) H 08/15/19 16:10 Troponin T < 0.010 ng/mL (0.00-0.029) 08/15/19 15:23 C-Reactive Protein 26.70 mg/dL (0.00-1.30) H 08/19/19 09:43 Total Protein 6.3 g/dL (6.3-8.2) 08/18/19 05:38 Albumin 3.0 g/dL (3.9-5) L 08/18/19 05:38 Albumin/Globulin Ratio 0.9 % 08/18/19 05:38 Triglycerides 96 mg/dL (2-149) 08/16/19 14:39 Amylase 51 units/L (27-131) 08/18/19 05:38 Lipase 111 units/L (13-60) H 08/17/19 14:49 Urine Color [place] (Yellow) 08/15/19 16:00 Urine Turbidity Slightly-cloudy (Clear) 08/15/19 16:00 Urine pH 5.0 (5.0-7.0) 08/15/19 16:00 Ur Specific [place] 1.027 (1.003-1.030) 08/15/19 16:00 Urine Protein 100 mg/dl mg/dL (Negative) 08/15/19 16:00 Urine Glucose (UA) >=500 mg/dL (Negative) 08/15/19 16:00 Urine Ketones Neg mg/dL (Negative) 08/15/19 16:00 Urine Blood Lg (Negative) 08/15/19 16:00 Urine Nitrite Neg (Negative) 08/15/19 16:00 Urine Bilirubin Neg (Negative) 08/15/19 16:00 Urine Urobilinogen < 2.0 mg/dL (<2.0) 08/15/19 16:00 Ur Leukocyte Esterase Neg (Negative) 08/15/19 16:00 Urine WBC (Auto) 17.0 /HPF (0.0-6.0) H 08/15/19 16:00 Urine RBC (Auto) 43.0 /HPF (0.0-6.0) 08/15/19 16:00 U Epithel Cells (Auto) 2.0 /HPF (0-13.0) 08/15/19 16:00 Hyaline Casts 3 /LPF 08/15/19 16:00 Urine Mucus Few /HPF 08/15/19 16:00 Hepatitis A IgM Ab Non-reactive (NonReactive) 08/16/19 14:39 Hep Bs Antigen Non-reactive (Negative) 08/16/19 14:39 Hep B Core IgM Ab Non-reactive (NonReactive) 08/16/19 14:39 Hepatitis C Antibody Non-reactive (NonReactive) 08/16/19 14:39 Active Medications - Current Medications Current Medications: Generic Name Dose Route Start Last Admin Trade Name Freq PRN Reason Stop Dose Admin Albuterol 2.5 mg 08/15/19 18:14 Proventil IH Q3HRT PRN Shortness Of Breath Amlodipine Besylate 10 mg 08/16/19 13:00 08/19/19 09:17 Amlodipine PO 10 mg DAILY LUZ Administration Dextrose 0 ml 08/15/19 16:10 D50w (25gm) Syringe IV Q30MIN PRN Hypoglycemia Protocol Heparin Sodium (Porcine) 5,000 unit 08/15/19 22:00 08/19/19 09:17 Heparin SUB-Q 5,000 unit Q12HR LUZ Administration Potassium Chloride/Dextrose/Sod Cl 20 meq in 1,000 mls @ 125 mls/hr 08/15/19 17:00 08/18/19 21:54 D5w/0.45% Nacl/Kcl 20 Meq IV 125 mls/hr DIRECT LUZ Administration Sodium Chloride 1,000 mls @ 150 mls/hr 08/16/19 18:30 08/19/19 08:30 Nacl 0.9% 1000 Ml IV 150 mls/hr DIRECT LUZ Administration Ceftriaxone Sodium 2 gm in 100 mls @ 200 mls/hr 08/18/19 12:00 08/19/19 09:16 Rocephin/Ns 2 Gm/100 Ml IV 200 mls/hr Q24HR LUZ Administration Protocol Ibuprofen 600 mg 08/18/19 11:52 08/19/19 12:24 Ibuprofen PO 600 mg Q6H PRN Administration Pain, Mild (1-3) Insulin Human Isoph/Insulin Regular 12 unit 08/16/19 17:00 08/19/19 09:17 Humulin 70/30 SUB-Q 12 unit BIDDIAB LUZ Administration Insulin Human Lispro 0 unit 08/18/19 22:00 08/19/19 12:51 Humalog SUB-Q 3 unit ACHS LUZ Administration Protocol Lorazepam 2 mg 08/15/19 16:35 08/19/19 12:35 Ativan IV 2 mg Q1HR PRN Administration CIWA-Ar 8-15 Lorazepam 4 mg 08/15/19 16:35 08/17/19 22:49 Ativan IV 4 mg Q1HR PRN Administration CIWA-Ar 16-25 Lorazepam 4 mg 08/15/19 16:35 Ativan IV Q15MIN PRN CIWA-Ar >25 Multivitamins 1 each 08/19/19 10:00 08/19/19 09:16 Theragran Tab PO 1 each QDAY LUZ Administration Pantoprazole Sodium 40 mg 08/19/19 10:00 08/19/19 09:16 Protonix PO 40 mg DAILY LUZ Administration Sodium Chloride 10 ml 08/15/19 22:00 08/19/19 09:17 Sodium Chloride Flush Syringe 10 Ml IV 10 ml BID LUZ Administration Sodium Chloride 10 ml 08/15/19 18:14 Sodium Chloride Flush Syringe 10 Ml IV PRN PRN LINE FLUSH Nutrition/Malnutrition Assess - Dietary Evaluation Nutrition/Malnutrition Findings: Nutrition Notes Start: 08/17/19 12:12 Freq: Status: Active Protocol: Document 08/17/19 12:12 LM (Rec: 08/17/19 12:16 LM [id number]) Nutrition Notes Need for Assessment generated from: MD Order Initial or Follow up Brief Note Current Diagnosis Diabetes,Hypertension Other Pertinent Diagnosis ETOH dependence, alcoholic pacreatitis Current Diet Consistent CHO Labs/Tests POC glu 294 Pertinent Medications Humulin Height 6 ft 8 in Weight 140.614 kg [place] Body Weight (kg) 102.72 BMI 34.0 Subjective/Other Information MD consult for ONS. Pt in ED. Nutrition Intervention Follow-Up By: 08/20/19 Additional Comments F/U for Assessment, ONS needs, diet education needs
[2019-08-19] MEDS ORDERED: chlorproMAZINE 25 MG TAB PO PRN (18:09)
[2019-08-20] MEDS: INSULIN LISPRO 100 UNIT/ML SUB-Q SCH ×4 (08:42→22:23)
[2019-08-20] MEDS: INSULIN NPH/REGULAR 70/30 INJ SUB-Q SCH ×2 (08:42→17:33)
[2019-08-20] MEDS: cefTRIAXone/NS 2 GM/100 ML 2 GM/100 ML BAG IV SCH (10:14)
[2019-08-20] MEDS: PANTOPRAZOLE 40 MG TAB PO SCH (10:15)
[2019-08-20] MEDS: amLODIPine 10 MG TAB PO SCH (10:15)
[2019-08-20] MEDS: MULTIVITAMINS ,THERAPEUTIC TAB PO SCH (10:15)
[2019-08-20] MEDS: HEPARIN 5,000 UNIT/1 ML VIAL SUB-Q SCH ×2 (10:15→22:18)
--- NOTE | 2019-08-20 15:45 | Progress Note ---
Assessment and Plan Assessment and plan: --Persistent fevers; Probably secondary to UTI/acute pancreatitis Cultures negative to date Continue current antibiotics, ID consult Discussed with Dr. Hanna --Acute pancreatitis Status: Acute On CT abdomen ,GI related and cleared for discharge. However patient has persistent fevers, Check CT abdomen and pelvis, amylase lipase Supportive care,re consult GI if needed Advance diet -- Alcohol abuse Status: Acute CIWA protocol, IV fluid resuscitation Advised to quit alcohol intake --SIRS (systemic inflammatory response syndrome) Status: Acute Empiric IV antibiotic therapy, cultures negative to date -- Obesity BMI 33.6 Status: Acute Supplemental oxygen, nebulizer therapy, pulse oximetry, noninvasive positive pressure ventilation as needed Advised weight reduction when medically stable --ERINN ; vasomotor nephropathy IV fluids, Improved --Hematuria: Resolved Urology evaluation noted and appreciated Cleared for discharge --DKA (diabetic ketoacidoses) Status: Acute , Improved Check sliding scale coverage ADA diet D/c on Novolin 70/30 sq 16 BID --Metabolic Acidosis Status: Acute IV fluid resuscitation therapy, Closely monitor --DVT prophylaxis Status: Acute SCD , prophylactic heparin Monitor closely and adjust management as needed Consults and recommendations noted and appreciated Follow CT abdomen and pelvis, amylase lipase and cultures Follow ID evaluation and recommendation Plan of care is reviewed with the patient and his nurse History Interval history: Patient seen and examined medical records reviewed Patient is having persistent fevers Admitted with acute pancreatitis evaluated by GI Cleared for discharge Patient is on antibiotics for UTI Complaints of generalized weakness vital signs reviewed Hospitalist Physical - Constitutional Vitals: Temp Pulse Resp BP Pulse Ox 100.3 F H 120 H 19 141/96 96 08/20/19 11:09 08/20/19 11:09 08/20/19 11:09 08/20/19 11:09 08/20/19 11:09 General appearance: Present: no acute distress, well-nourished, obese, other (Febrile) - EENT Eyes: Present: PERRL, EOM intact - Neck Neck: Present: supple, normal ROM - Respiratory Respiratory effort: normal Respiratory: bilateral: diminished, negative: rales, rhonchi, wheezing - Cardiovascular Rhythm: regular Heart Sounds: Present: S1 & S2 - Extremities Extremities: no ischemia, No edema - Abdominal General gastrointestinal: soft, non-tender, non-distended, normal bowel sounds - Integumentary Integumentary: Present: clear, warm - Psychiatric Psychiatric: appropriate mood/affect, cooperative - Neurologic Neurologic: moves all extremities Results - Labs CBC & Chem 7: 08/18/19 05:38 08/18/19 05:38 Labs: Laboratory Last Values WBC 9.4 K/mm3 (4.5-11.0) 08/18/19 05:38 RBC 3.69 M/mm3 (3.65-5.03) 08/18/19 05:38 Hgb 10.8 gm/dl (11.8-15.2) L 08/18/19 05:38 Hct 33.7 % (35.5-45.6) L 08/18/19 05:38 MCV 91 fl (84-94) 08/18/19 05:38 MCH 29 pg (28-32) 08/18/19 05:38 MCHC 32 % (32-34) 08/18/19 05:38 RDW 15.2 % (13.2-15.2) 08/18/19 05:38 Plt Count 257 K/mm3 (140-440) 08/18/19 05:38 Lymph % (Auto) 7.9 % (13.4-35.0) L 08/16/19 14:39 [place] % (Auto) 14.7 % (0.0-7.3) H 08/18/19 05:38 Eos % (Auto) 1.2 % (0.0-4.3) 08/18/19 05:38 Baso % (Auto) 0.4 % (0.0-1.8) 08/16/19 14:39 Lymph # 0.9 K/mm3 (1.2-5.4) L 08/16/19 14:39 [place] # 1.3 K/mm3 (0.0-0.8) H 08/18/19 05:38 Eos # 0.1 K/mm3 (0.0-0.4) 08/18/19 05:38 Baso # 0.0 K/mm3 (0.0-0.1) 08/18/19 05:38 Add Manual Diff Complete 08/18/19 05:38 Total Counted 100 08/18/19 05:38 Seg Neutrophils % 73.7 % (40.0-70.0) H 08/18/19 05:38 Seg Neuts % (Manual) 85.0 % (40.0-70.0) H 08/18/19 05:38 Band Neutrophils % 0 % 08/18/19 05:38 Lymphocytes % (Manual) 6.0 % (13.4-35.0) L 08/18/19 05:38 Reactive Lymphs % (Man) 0 % 08/18/19 05:38 Monocytes % (Manual) 9.0 % (0.0-7.3) H 08/18/19 05:38 Eosinophils % (Manual) 0 % (0.0-4.3) 08/18/19 05:38 Basophils % (Manual) 0 % (0.0-1.8) 08/18/19 05:38 Metamyelocytes % 0 % 08/18/19 05:38 Myelocytes % 0 % 08/18/19 05:38 Promyelocytes % 0 % 08/18/19 05:38 Blast Cells % 0 % 08/18/19 05:38 Nucleated RBC % 2.0 % (0.0-0.9) H 08/18/19 05:38 Seg Neutrophils # 6.6 K/mm3 (1.8-7.7) 08/18/19 05:38 Seg Neutrophils # Man 8.0 K/mm3 (1.8-7.7) H 08/18/19 05:38 Band Neutrophils # 0.0 K/mm3 08/18/19 05:38 Lymphocytes # (Manual) 0.6 K/mm3 (1.2-5.4) L 08/18/19 05:38 Abs React Lymphs (Man) 0.0 K/mm3 08/18/19 05:38 Monocytes # (Manual) 0.8 K/mm3 (0.0-0.8) 08/18/19 05:38 Eosinophils # (Manual) 0.0 K/mm3 (0.0-0.4) 08/18/19 05:38 Basophils # (Manual) 0.0 K/mm3 (0.0-0.1) 08/18/19 05:38 Metamyelocytes # 0.0 K/mm3 08/18/19 05:38 Myelocytes # 0.0 K/mm3 08/18/19 05:38 Promyelocytes # 0.0 K/mm3 08/18/19 05:38 Blast Cells # 0.0 K/mm3 08/18/19 05:38 WBC Morphology Not Reportable 08/18/19 05:38 Hypersegmented Neuts Not Reportable 08/18/19 05:38 Hyposegmented Neuts Not Reportable 08/18/19 05:38 Hypogranular Neuts Not Reportable 08/18/19 05:38 Smudge Cells Not Reportable 08/18/19 05:38 Toxic Granulation Not Reportable 08/18/19 05:38 Toxic Vacuolation Not Reportable 08/18/19 05:38 Dohle Bodies Not Reportable 08/18/19 05:38 Pelger-Huet Anomaly Not Reportable 08/18/19 05:38 Mann Rods Not Reportable 08/18/19 05:38 Platelet Estimate Consistent w auto 08/18/19 05:38 Clumped Platelets Not Reportable 08/18/19 05:38 Plt Clumps, EDTA Not Reportable 08/18/19 05:38 Large Platelets Not Reportable 08/18/19 05:38 Giant Platelets Not Reportable 08/18/19 05:38 Platelet Satelliting Not Reportable 08/18/19 05:38 Plt Morphology Comment Not Reportable 08/18/19 05:38 RBC Morphology Not Reportable 08/18/19 05:38 Dimorphic RBCs Not Reportable 08/18/19 05:38 Polychromasia Not Reportable 08/18/19 05:38 Hypochromasia Not Reportable 08/18/19 05:38 Poikilocytosis Not Reportable 08/18/19 05:38 Anisocytosis Not Reportable 08/18/19 05:38 Microcytosis Not Reportable 08/18/19 05:38 Macrocytosis Not Reportable 08/18/19 05:38 Spherocytes Not Reportable 08/18/19 05:38 Pappenheimer Bodies Not Reportable 08/18/19 05:38 Sickle Cells Not Reportable 08/18/19 05:38 Target Cells Not Reportable 08/18/19 05:38 Tear Drop Cells Not Reportable 08/18/19 05:38 Ovalocytes Not Reportable 08/18/19 05:38 Helmet Cells Not Reportable 08/18/19 05:38 [place] Bodies Not Reportable 08/18/19 05:38 [place] Rings Not Reportable 08/18/19 05:38 [place] Cells Not Reportable 08/18/19 05:38 Bite Cells Not Reportable 08/18/19 05:38 Crenated Cell Not Reportable 08/18/19 05:38 Elliptocytes Few 08/18/19 05:38 Acanthocytes (Spur) Not Reportable 08/18/19 05:38 Rouleaux Not Reportable 08/18/19 05:38 Hemoglobin C Crystals Not Reportable 08/18/19 05:38 Schistocytes Few 08/18/19 05:38 Malaria parasites Not Reportable 08/18/19 05:38 Lewis Bodies Not Reportable 08/18/19 05:38 Hem Pathologist Commnt No 08/18/19 05:38 PT 14.5 Sec. (12.2-14.9) 08/16/19 14:39 INR 1.11 (0.87-1.13) 08/16/19 14:39 APTT 26.3 Sec. (24.2-36.6) 08/15/19 16:10 VBG pH 7.423 (7.320-7.420) H 08/15/19 16:15 Sodium 136 mmol/L (137-145) L 08/18/19 05:38 Potassium 3.5 mmol/L (3.6-5.0) L 08/18/19 05:38 Chloride 100.3 mmol/L (98-107) 08/18/19 05:38 Carbon Dioxide 22 mmol/L (22-30) 08/18/19 05:38 Anion Gap 17 mmol/L 08/18/19 05:38 BUN 7 mg/dL (9-20) L 08/18/19 05:38 Creatinine 0.9 mg/dL (0.8-1.5) 08/18/19 05:38 Estimated GFR > 60 ml/min 08/18/19 05:38 BUN/Creatinine Ratio 8 % 08/18/19 05:38 Glucose 196 mg/dL (75-100) H 08/18/19 05:38 POC Glucose 193 (70-105) H 08/20/19 11:24 Lactic Acid 1.60 mmol/L (0.7-2.0) 08/15/19 22:38 Calcium 8.2 mg/dL (8.4-10.2) L 08/18/19 05:38 Phosphorus 1.70 mg/dL (2.5-4.5) L 08/15/19 22:38 Magnesium 2.50 mg/dL (1.7-2.3) H 08/15/19 22:38 Total Bilirubin 1.20 mg/dL (0.1-1.2) 08/18/19 05:38 Direct Bilirubin 0.7 mg/dL (0-0.2) H 08/16/19 14:39 Indirect Bilirubin 1.1 mg/dL 08/16/19 14:39 AST 40 units/L (5-40) 08/18/19 05:38 ALT 12 units/L (7-56) 08/18/19 05:38 Alkaline Phosphatase 69 units/L (35-129) 08/18/19 05:38 Ammonia 54.0 umol/L (25-60) 08/18/19 05:38 Total Creatine Kinase 517 units/L (55-170) H 08/15/19 16:10 Troponin T < 0.010 ng/mL (0.00-0.029) 08/15/19 15:23 C-Reactive Protein 26.70 mg/dL (0.00-1.30) H 08/19/19 09:43 Total Protein 6.3 g/dL (6.3-8.2) 08/18/19 05:38 Albumin 3.0 g/dL (3.9-5) L 08/18/19 05:38 Albumin/Globulin Ratio 0.9 % 08/18/19 05:38 Triglycerides 96 mg/dL (2-149) 08/16/19 14:39 Amylase 51 units/L (27-131) 08/18/19 05:38 Lipase 111 units/L (13-60) H 08/17/19 14:49 Urine Color [place] (Yellow) 08/15/19 16:00 Urine Turbidity Slightly-cloudy (Clear) 08/15/19 16:00 Urine pH 5.0 (5.0-7.0) 08/15/19 16:00 Ur Specific [place] 1.027 (1.003-1.030) 08/15/19 16:00 Urine Protein 100 mg/dl mg/dL (Negative) 08/15/19 16:00 Urine Glucose (UA) >=500 mg/dL (Negative) 08/15/19 16:00 Urine Ketones Neg mg/dL (Negative) 08/15/19 16:00 Urine Blood Lg (Negative) 08/15/19 16:00 Urine Nitrite Neg (Negative) 08/15/19 16:00 Urine Bilirubin Neg (Negative) 08/15/19 16:00 Urine Urobilinogen < 2.0 mg/dL (<2.0) 08/15/19 16:00 Ur Leukocyte Esterase Neg (Negative) 08/15/19 16:00 Urine WBC (Auto) 17.0 /HPF (0.0-6.0) H 08/15/19 16:00 Urine RBC (Auto) 43.0 /HPF (0.0-6.0) 08/15/19 16:00 U Epithel Cells (Auto) 2.0 /HPF (0-13.0) 08/15/19 16:00 Hyaline Casts 3 /LPF 08/15/19 16:00 Urine Mucus Few /HPF 08/15/19 16:00 Hepatitis A IgM Ab Non-reactive (NonReactive) 08/16/19 14:39 Hep Bs Antigen Non-reactive (Negative) 08/16/19 14:39 Hep B Core IgM Ab Non-reactive (NonReactive) 08/16/19 14:39 Hepatitis C Antibody Non-reactive (NonReactive) 08/16/19 14:39 Active Medications - Current Medications Current Medications: Generic Name Dose Route Start Last Admin Trade Name Freq PRN Reason Stop Dose Admin Albuterol 2.5 mg 08/15/19 18:14 Proventil IH Q3HRT PRN Shortness Of Breath Amlodipine Besylate 10 mg 08/16/19 13:00 08/20/19 10:15 Amlodipine PO 10 mg DAILY LUZ Administration Chlorpromazine HCl 50 mg 08/19/19 18:09 08/19/19 22:15 Thorazine PO 50 mg Q6H PRN Administration Hiccups Dextrose 0 ml 08/15/19 16:10 D50w (25gm) Syringe IV Q30MIN PRN Hypoglycemia Protocol Heparin Sodium (Porcine) 5,000 unit 08/15/19 22:00 08/20/19 10:15 Heparin SUB-Q 5,000 unit Q12HR LUZ Administration Potassium Chloride/Dextrose/Sod Cl 20 meq in 1,000 mls @ 125 mls/hr 08/15/19 17:00 08/18/19 21:54 D5w/0.45% Nacl/Kcl 20 Meq IV 125 mls/hr DIRECT LUZ Administration Sodium Chloride 1,000 mls @ 150 mls/hr 08/16/19 18:30 08/19/19 20:11 Nacl 0.9% 1000 Ml IV 150 mls/hr DIRECT LUZ Administration Ceftriaxone Sodium 2 gm in 100 mls @ 200 mls/hr 08/18/19 12:00 08/20/19 10:14 Rocephin/Ns 2 Gm/100 Ml IV 200 mls/hr Q24HR LUZ Administration Protocol Ibuprofen 600 mg 08/18/19 11:52 08/19/19 23:50 Ibuprofen PO 600 mg Q6H PRN Administration Pain, Mild (1-3) Insulin Human Isoph/Insulin Regular 12 unit 08/16/19 17:00 08/20/19 08:42 Humulin 70/30 SUB-Q 12 unit BIDDIAB LUZ Administration Insulin Human Lispro 0 unit 08/18/19 22:00 08/20/19 12:39 Humalog SUB-Q 2 unit ACHS LUZ Administration Protocol Lorazepam 2 mg 08/15/19 16:35 08/19/19 22:16 Ativan IV 2 mg Q1HR PRN Administration CIWA-Ar 8-15 Lorazepam 4 mg 08/15/19 16:35 08/17/19 22:49 Ativan IV 4 mg Q1HR PRN Administration CIWA-Ar 16-25 Lorazepam 4 mg 08/15/19 16:35 Ativan IV Q15MIN PRN CIWA-Ar >25 Multivitamins 1 each 08/19/19 10:00 08/20/19 10:15 Theragran Tab PO 1 each QDAY LUZ Administration Pantoprazole Sodium 40 mg 08/19/19 10:00 08/20/19 10:15 Protonix PO 40 mg DAILY LUZ Administration Sodium Chloride 10 ml 08/15/19 22:00 08/20/19 10:15 Sodium Chloride Flush Syringe 10 Ml IV 10 ml BID LUZ Administration Sodium Chloride 10 ml 08/15/19 18:14 Sodium Chloride Flush Syringe 10 Ml IV PRN PRN LINE FLUSH Nutrition/Malnutrition Assess - Dietary Evaluation Nutrition/Malnutrition Findings: Nutrition Notes Start: 08/17/19 12:12 Freq: Status: Active Protocol: Document 08/20/19 14:12 LP (Rec: 08/20/19 14:13 LP [id number]) Nutrition Notes Initial or Follow up Brief Note Subjective/Other Information Pt denies need for ONS. Pt states eating well. Consuming 75% of meals and eating well [employer]. Nutrition Intervention Revisit per MD consult or patient Sign Off request:
[2019-08-20] MEDS: IBUPROFEN 600 MG TAB PO PRN (17:26)
[2019-08-20] MEDS: ACETAMINOPHEN 325 MG TAB PO PRN (18:40)
--- NOTE | 2019-08-20 19:21 | Cat Scan Report ---
CT ABDOMEN AND PELVIS WITH CONTRAST INDICATION / CLINICAL INFORMATION: f/u acute pancreatitis. TECHNIQUE: Axial CT images were obtained through the abdomen and pelvis after 100 mL Omnipaque [address] scans at this location are performed using CT dose reduction for ALARA by means of automated exposure control. COMPARISON: CT dated 08/15/19 FINDINGS: LOWER CHEST: Small left pleural effusion with mild left lung base atelectasis is unchanged. LIVER: Liver appears slightly hypodense characteristic of fatty infiltration. GALLBLADDER: No significant abnormality. BILE DUCTS: No significant abnormality. PANCREAS: There has been slight increase in the peripancreatic inflammation and ill-defined peripancr eatic fluid characteristic of pancreatitis. No discrete, drainable peripancreatic fluid collection. SPLEEN: No significant abnormality. ADRENALS: No significant abnormality. RIGHT KIDNEY and URETER: No significant abnormality. LEFT KIDNEY and URETER: No significant abnormality. STOMACH and SMALL BOWEL: No significant abnormality. COLON: No significant abnormality. APPENDIX: No significant abnormality. PERITONEUM: No significant free fluid on the current study. No free air. No fluid collection. LYMPH NODES: No significant adenopathy. AORTA and ARTERIES: No significant abnormality. IVC and VEINS: No significant abnormality. URINARY BLADDER: No significant abnormality. REPRODUCTIVE ORGANS: No significant abnormality. ADDITIONAL FINDINGS: Presacral soft tissue edema has improved. SKELETAL SYSTEM: No significant abnormality. IMPRESSION: 1. Slight increase in peripancreatic inflammation and fluid without discrete drainable fluid collecti on. 2. Slight decrease in free fluid and presacral edema. Signer Name: Martine Mayen MD Signed: 08/20/2019 7:16 PM Workstation Name: [id number]
[2019-08-20] MEDS: LORazepam 2 MG/ML VIAL IV PRN (22:23)
[2019-08-20] MEDS: SODIUM CHLORIDE 0.9% 1000 ML 1,000 ML IV SCH (22:45)
[2019-08-21] MEDS: ACETAMINOPHEN 325 MG TAB PO PRN (06:05)
[2019-08-21 06:46] LABS: Basophils % (Auto) 0.1 % (0.0-1.8); Eosinophils # (Auto) 0.1 K/mm3 (0.0-0.4); Eosinophils % (Auto) 0.6 % (0.0-4.3); Hematocrit 32.2 % (35.5-45.6); Hemoglobin 10.6 gm/dl (11.8-15.2); Lymphocytes # (Auto) 1.2 K/mm3 (1.2-5.4); Lymphocytes % (Auto) 9.7 % (13.4-35.0); Mean Corpuscular HGB Conc 33 % (32-34); Mean Corpuscular Volume 90 fl (84-94); Monocytes # (Auto) 1.1 K/mm3 (0.0-0.8); Monocytes % (Auto) 9.1 % (0.0-7.3); Platelet Count 409 K/mm3 (140-440); Red Blood Count 3.57 M/mm3 (3.65-5.03); Red Cell Distribution Width 15.5 % (13.2-15.2)
[2019-08-21 07:12] LABS: Alanine Aminotransferase 25 units/L (7-56); Albumin 3.2 g/dL (3.9-5); BUN/Creatinine Ratio 6; Blood Urea Nitrogen 5 mg/dL (9-20); Calcium 8.2 mg/dL (8.4-10.2); Hemolysis Index 2
[2019-08-21] MEDS: INSULIN NPH/REGULAR 70/30 INJ SUB-Q SCH ×2 (09:04→18:39)
[2019-08-21] MEDS: INSULIN LISPRO 100 UNIT/ML SUB-Q SCH ×4 (09:07→22:44)
[2019-08-21] MEDS: cefTRIAXone/NS 2 GM/100 ML 2 GM/100 ML BAG IV SCH (09:10)
[2019-08-21] MEDS: amLODIPine 10 MG TAB PO SCH (10:25)
[2019-08-21] MEDS: HEPARIN 5,000 UNIT/1 ML VIAL SUB-Q SCH ×2 (11:09→22:44)
[2019-08-21] MEDS: PANTOPRAZOLE 40 MG TAB PO SCH (11:09)
[2019-08-21] MEDS: MULTIVITAMINS ,THERAPEUTIC TAB PO SCH (11:10)
[2019-08-21] MEDS: SODIUM CHLORIDE 0.9% 1000 ML 1,000 ML IV SCH ×2 (11:21→23:46)
--- NOTE | 2019-08-21 12:45 | Progress Note ---
Assessment and Plan Assessment and plan: --Acute pancreatitis Status: Acute Rpt CT abdomen Slight increase in peripancreatic inflammation and fluid GI evaluated signed off However patient has persistent fevers, re consult GI if needed estimated --Persistent fevers; Probably secondary to UTI/acute pancreatitis Cultures negative to date Continue current antibiotics, ID consult Discussed with Dr. Hanna -- Alcohol abuse Status: Acute CIWA protocol, IV fluid resuscitation Advised to quit alcohol intake --SIRS (systemic inflammatory response syndrome) Status: Acute Empiric IV antibiotic therapy, cultures negative to date -- Obesity BMI 33.6 Status: Acute Supplemental oxygen, nebulizer therapy, pulse oximetry, noninvasive positive pressure ventilation as needed Advised weight reduction when medically stable --ERINN ; vasomotor nephropathy IV fluids, Improved --Hematuria: Resolved Urology evaluation noted and appreciated Cleared for discharge --DKA (diabetic ketoacidoses) Status: Acute , Improved Check sliding scale coverage ADA diet D/c on Novolin 70/30 sq 16 BID --Metabolic Acidosis Status: Acute IV fluid resuscitation therapy, Closely monitor --DVT prophylaxis Status: Acute SCD , prophylactic heparin Monitor closely and adjust management as needed Follow ID evaluation and recommendation Plan of care is reviewed with the patient and his nurse History Interval history: Patient seen and examined medical records patient continues to spike fevers MAXIMUM TEMPERATURE 102F Repeat CT abdomen and pelvis; pancreatic inflammation Patient looks ill, complaints of mild abdominal pain and nausea Vital signs reviewed Hospitalist Physical - Constitutional Vitals: Temp Pulse Resp BP Pulse Ox 100.5 F H 115 H 18 144/98 97 08/21/19 05:25 08/21/19 10:25 08/21/19 05:25 08/21/19 10:25 08/21/19 05:25 General appearance: Present: mild distress, well-nourished, obese, other (Febrile) - EENT Eyes: Present: PERRL, EOM intact - Neck Neck: Present: supple, normal ROM - Respiratory Respiratory effort: normal Respiratory: bilateral: diminished, negative: rales, rhonchi, wheezing - Cardiovascular Rhythm: regular Heart Sounds: Present: S1 & S2 - Extremities Extremities: no ischemia, No edema - Abdominal General gastrointestinal: soft, tender (no guarding no rigidity), distended (mild distention), normal bowel sounds - Integumentary Integumentary: Present: clear, warm - Psychiatric Psychiatric: appropriate mood/affect, cooperative - Neurologic Neurologic: moves all extremities Results - Labs CBC & Chem 7: 08/22/19 12:09 08/22/19 12:09 Labs: Laboratory Last Values WBC 12.3 K/mm3 (4.5-11.0) H 08/21/19 05:30 RBC 3.57 M/mm3 (3.65-5.03) L 08/21/19 05:30 Hgb 10.6 gm/dl (11.8-15.2) L 08/21/19 05:30 Hct 32.2 % (35.5-45.6) L 08/21/19 05:30 MCV 90 fl (84-94) 08/21/19 05:30 MCH 30 pg (28-32) 08/21/19 05:30 MCHC 33 % (32-34) 08/21/19 05:30 RDW 15.5 % (13.2-15.2) H 08/21/19 05:30 Plt Count 409 K/mm3 (140-440) 08/21/19 05:30 Lymph % (Auto) 9.7 % (13.4-35.0) L 08/21/19 05:30 [place] % (Auto) 9.1 % (0.0-7.3) H 08/21/19 05:30 Eos % (Auto) 0.6 % (0.0-4.3) 08/21/19 05:30 Baso % (Auto) 0.1 % (0.0-1.8) 08/21/19 05:30 Lymph # 1.2 K/mm3 (1.2-5.4) 08/21/19 05:30 [place] # 1.1 K/mm3 (0.0-0.8) H 08/21/19 05:30 Eos # 0.1 K/mm3 (0.0-0.4) 08/21/19 05:30 Baso # 0.0 K/mm3 (0.0-0.1) 08/21/19 05:30 Add Manual Diff Complete 08/18/19 05:38 Total Counted 100 08/18/19 05:38 Seg Neutrophils % 80.5 % (40.0-70.0) H 08/21/19 05:30 Seg Neuts % (Manual) 85.0 % (40.0-70.0) H 08/18/19 05:38 Band Neutrophils % 0 % 08/18/19 05:38 Lymphocytes % (Manual) 6.0 % (13.4-35.0) L 08/18/19 05:38 Reactive Lymphs % (Man) 0 % 08/18/19 05:38 Monocytes % (Manual) 9.0 % (0.0-7.3) H 08/18/19 05:38 Eosinophils % (Manual) 0 % (0.0-4.3) 08/18/19 05:38 Basophils % (Manual) 0 % (0.0-1.8) 08/18/19 05:38 Metamyelocytes % 0 % 08/18/19 05:38 Myelocytes % 0 % 08/18/19 05:38 Promyelocytes % 0 % 08/18/19 05:38 Blast Cells % 0 % 08/18/19 05:38 Nucleated RBC % 2.0 % (0.0-0.9) H 08/18/19 05:38 Seg Neutrophils # 9.9 K/mm3 (1.8-7.7) H 08/21/19 05:30 Seg Neutrophils # Man 8.0 K/mm3 (1.8-7.7) H 08/18/19 05:38 Band Neutrophils # 0.0 K/mm3 08/18/19 05:38 Lymphocytes # (Manual) 0.6 K/mm3 (1.2-5.4) L 08/18/19 05:38 Abs React Lymphs (Man) 0.0 K/mm3 08/18/19 05:38 Monocytes # (Manual) 0.8 K/mm3 (0.0-0.8) 08/18/19 05:38 Eosinophils # (Manual) 0.0 K/mm3 (0.0-0.4) 08/18/19 05:38 Basophils # (Manual) 0.0 K/mm3 (0.0-0.1) 08/18/19 05:38 Metamyelocytes # 0.0 K/mm3 08/18/19 05:38 Myelocytes # 0.0 K/mm3 08/18/19 05:38 Promyelocytes # 0.0 K/mm3 08/18/19 05:38 Blast Cells # 0.0 K/mm3 08/18/19 05:38 WBC Morphology Not Reportable 08/18/19 05:38 Hypersegmented Neuts Not Reportable 08/18/19 05:38 Hyposegmented Neuts Not Reportable 08/18/19 05:38 Hypogranular Neuts Not Reportable 08/18/19 05:38 Smudge Cells Not Reportable 08/18/19 05:38 Toxic Granulation Not Reportable 08/18/19 05:38 Toxic Vacuolation Not Reportable 08/18/19 05:38 Dohle Bodies Not Reportable 08/18/19 05:38 Pelger-Huet Anomaly Not Reportable 08/18/19 05:38 Mann Rods Not Reportable 08/18/19 05:38 Platelet Estimate Consistent w auto 08/18/19 05:38 Clumped Platelets Not Reportable 08/18/19 05:38 Plt Clumps, EDTA Not Reportable 08/18/19 05:38 Large Platelets Not Reportable 08/18/19 05:38 Giant Platelets Not Reportable 08/18/19 05:38 Platelet Satelliting Not Reportable 08/18/19 05:38 Plt Morphology Comment Not Reportable 08/18/19 05:38 RBC Morphology Not Reportable 08/18/19 05:38 Dimorphic RBCs Not Reportable 08/18/19 05:38 Polychromasia Not Reportable 08/18/19 05:38 Hypochromasia Not Reportable 08/18/19 05:38 Poikilocytosis Not Reportable 08/18/19 05:38 Anisocytosis Not Reportable 08/18/19 05:38 Microcytosis Not Reportable 08/18/19 05:38 Macrocytosis Not Reportable 08/18/19 05:38 Spherocytes Not Reportable 08/18/19 05:38 Pappenheimer Bodies Not Reportable 08/18/19 05:38 Sickle Cells Not Reportable 08/18/19 05:38 Target Cells Not Reportable 08/18/19 05:38 Tear Drop Cells Not Reportable 08/18/19 05:38 Ovalocytes Not Reportable 08/18/19 05:38 Helmet Cells Not Reportable 08/18/19 05:38 [place] Bodies Not Reportable 08/18/19 05:38 Edwards Rings Not Reportable 08/18/19 05:38 Dell Cells Not Reportable 08/18/19 05:38 Bite Cells Not Reportable 08/18/19 05:38 Crenated Cell Not Reportable 08/18/19 05:38 Elliptocytes Few 08/18/19 05:38 Acanthocytes (Spur) Not Reportable 08/18/19 05:38 Rouleaux Not Reportable 08/18/19 05:38 Hemoglobin C Crystals Not Reportable 08/18/19 05:38 Schistocytes Few 08/18/19 05:38 Malaria parasites Not Reportable 08/18/19 05:38 Lewis Bodies Not Reportable 08/18/19 05:38 Hem Pathologist Commnt No 08/18/19 05:38 PT 14.5 Sec. (12.2-14.9) 08/16/19 14:39 INR 1.11 (0.87-1.13) 08/16/19 14:39 APTT 26.3 Sec. (24.2-36.6) 08/15/19 16:10 VBG pH 7.423 (7.320-7.420) H 08/15/19 16:15 Sodium 140 mmol/L (137-145) 08/21/19 05:30 Potassium 3.4 mmol/L (3.6-5.0) L 08/21/19 05:30 Chloride 100.6 mmol/L (98-107) 08/21/19 05:30 Carbon Dioxide 19 mmol/L (22-30) L 08/21/19 05:30 Anion Gap 24 mmol/L 08/21/19 05:30 BUN 5 mg/dL (9-20) L 08/21/19 05:30 Creatinine 0.9 mg/dL (0.8-1.5) 08/21/19 05:30 Estimated GFR > 60 ml/min 08/21/19 05:30 BUN/Creatinine Ratio 6 % 08/21/19 05:30 Glucose 196 mg/dL (75-100) H 08/21/19 05:30 POC Glucose 217 (70-105) H 08/21/19 11:30 Lactic Acid 1.60 mmol/L (0.7-2.0) 08/15/19 22:38 Calcium 8.2 mg/dL (8.4-10.2) L 08/21/19 05:30 Phosphorus 1.70 mg/dL (2.5-4.5) L 08/15/19 22:38 Magnesium 2.50 mg/dL (1.7-2.3) H 08/15/19 22:38 Total Bilirubin 0.80 mg/dL (0.1-1.2) 08/21/19 05:30 Direct Bilirubin 0.7 mg/dL (0-0.2) H 08/16/19 14:39 Indirect Bilirubin 1.1 mg/dL 08/16/19 14:39 AST 58 units/L (5-40) H 08/21/19 05:30 ALT 25 units/L (7-56) 08/21/19 05:30 Alkaline Phosphatase 109 units/L (35-129) 08/21/19 05:30 Ammonia 54.0 umol/L (25-60) 08/18/19 05:38 Total Creatine Kinase 517 units/L (55-170) H 08/15/19 16:10 Troponin T < 0.010 ng/mL (0.00-0.029) 08/15/19 15:23 C-Reactive Protein 26.70 mg/dL (0.00-1.30) H 08/19/19 09:43 Total Protein 6.6 g/dL (6.3-8.2) 08/21/19 05:30 Albumin 3.2 g/dL (3.9-5) L 08/21/19 05:30 Albumin/Globulin Ratio 0.9 % 08/21/19 05:30 Triglycerides 96 mg/dL (2-149) 08/16/19 14:39 Amylase 35 units/L (27-131) 08/21/19 05:30 Lipase 70 units/L (13-60) H 08/21/19 05:30 Urine Color [place] (Yellow) 08/15/19 16:00 Urine Turbidity Slightly-cloudy (Clear) 08/15/19 16:00 Urine pH 5.0 (5.0-7.0) 08/15/19 16:00 Ur Specific [place] 1.027 (1.003-1.030) 08/15/19 16:00 Urine Protein 100 mg/dl mg/dL (Negative) 08/15/19 16:00 Urine Glucose (UA) >=500 mg/dL (Negative) 08/15/19 16:00 Urine Ketones Neg mg/dL (Negative) 08/15/19 16:00 Urine Blood Lg (Negative) 08/15/19 16:00 Urine Nitrite Neg (Negative) 08/15/19 16:00 Urine Bilirubin Neg (Negative) 08/15/19 16:00 Urine Urobilinogen < 2.0 mg/dL (<2.0) 08/15/19 16:00 Ur Leukocyte Esterase Neg (Negative) 08/15/19 16:00 Urine WBC (Auto) 17.0 /HPF (0.0-6.0) H 08/15/19 16:00 Urine RBC (Auto) 43.0 /HPF (0.0-6.0) 08/15/19 16:00 U Epithel Cells (Auto) 2.0 /HPF (0-13.0) 08/15/19 16:00 Hyaline Casts 3 /LPF 08/15/19 16:00 Urine Mucus Few /HPF 08/15/19 16:00 Hepatitis A IgM Ab Non-reactive (NonReactive) 08/16/19 14:39 Hep Bs Antigen Non-reactive (Negative) 08/16/19 14:39 Hep B Core IgM Ab Non-reactive (NonReactive) 08/16/19 14:39 Hepatitis C Antibody Non-reactive (NonReactive) 08/16/19 14:39 Active Medications - Current Medications Current Medications: Generic Name Dose Route Start Last Admin Trade Name Freq PRN Reason Stop Dose Admin Acetaminophen 650 mg 08/20/19 18:00 08/21/19 06:05 Tylenol PO 650 mg Q4H PRN Administration Pain, Mild (1-3) Albuterol 2.5 mg 08/15/19 18:14 Proventil IH Q3HRT PRN Shortness Of Breath Amlodipine Besylate 10 mg 08/16/19 13:00 08/21/19 10:25 Amlodipine PO 10 mg DAILY LUZ Administration Chlorpromazine HCl 50 mg 08/19/19 18:09 08/19/19 22:15 Thorazine PO 50 mg Q6H PRN Administration Hiccups Dextrose 0 ml 08/15/19 16:10 D50w (25gm) Syringe IV Q30MIN PRN Hypoglycemia Protocol Heparin Sodium (Porcine) 5,000 unit 08/15/19 22:00 08/21/19 11:09 Heparin SUB-Q 5,000 unit Q12HR LUZ Administration Sodium Chloride 1,000 mls @ 75 mls/hr 08/16/19 18:30 08/21/19 11:21 Nacl 0.9% 1000 Ml IV 150 mls/hr DIRECT LUZ Administration Ceftriaxone Sodium 2 gm in 100 mls @ 200 mls/hr 08/18/19 12:00 08/21/19 09:10 Rocephin/Ns 2 Gm/100 Ml IV 200 mls/hr Q24HR LUZ Administration Protocol Ibuprofen 600 mg 08/18/19 11:52 08/20/19 17:26 Ibuprofen PO 600 mg Q6H PRN Administration Pain, Mild (1-3) Insulin Human Isoph/Insulin Regular 12 unit 08/16/19 17:00 08/21/19 09:04 Humulin 70/30 SUB-Q 12 unit BIDDIAB LUZ Administration Insulin Human Lispro 0 unit 08/18/19 22:00 08/21/19 09:07 Humalog SUB-Q 2 unit ACHS LUZ Administration Protocol Lorazepam 2 mg 08/15/19 16:35 08/20/19 22:23 Ativan IV 2 mg Q1HR PRN Administration CIWA-Ar 8-15 Lorazepam 4 mg 08/15/19 16:35 08/17/19 22:49 Ativan IV 4 mg Q1HR PRN Administration CIWA-Ar 16-25 Lorazepam 4 mg 08/15/19 16:35 Ativan IV Q15MIN PRN CIWA-Ar >25 Multivitamins 1 each 08/19/19 10:00 08/21/19 11:10 Theragran Tab PO 1 each QDAY LUZ Administration Pantoprazole Sodium 40 mg 08/19/19 10:00 08/21/19 11:09 Protonix PO 40 mg DAILY LUZ Administration Potassium Chloride 30 meq 08/21/19 13:00 K-Dur PO 08/21/19 13:01 ONCE ONE Sodium Chloride 10 ml 08/15/19 22:00 08/21/19 11:10 Sodium Chloride Flush Syringe 10 Ml IV 10 ml BID LUZ Administration Sodium Chloride 10 ml 08/15/19 18:14 Sodium Chloride Flush Syringe 10 Ml IV PRN PRN LINE FLUSH Nutrition/Malnutrition Assess - Dietary Evaluation Nutrition/Malnutrition Findings: Nutrition Notes Start: 08/17/19 12:12 Freq: Status: Active Protocol: Document 08/20/19 14:12 LP (Rec: 08/20/19 14:13 LP [id number]) Nutrition Notes Initial or Follow up Brief Note Subjective/Other Information Pt denies need for ONS. Pt states eating well. 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 Nutrition Intervention Revisit per MD consult or patient Sign Off request:
[2019-08-21] MEDS ORDERED: POTASSIUM CHLORIDE ER 10 MEQ TAB PO ONE (13:00)
[2019-08-21] MEDS: IBUPROFEN 600 MG TAB PO PRN ×2 (13:49→20:17)
--- NOTE | 2019-08-21 14:10 | Consultation ---
History of Present Illness - Reason for Consult Consult date: 08/21/19 Recurrent fever Requesting physician: DANIEL LEARY - History of Present Illness The patient is a 38-year-old male with hypertension, obesity hypoventilation syndrome, alcohol dependence was admitted to the hospital on 08/15/2019 with complaints of abdominal pain. He was diagnosed with acute pancreatitis. He drinks 1 vodka every day. He was also noted to have hematuria initially, was seen by urology, planned for outpatient cystoscopy. He was placed on IV Ceftriaxone due to fevers. With persistent fevers, ID was consulted. He denies any cough or shortness of breath. No urinary burning at present. Hematuria has resolved. Continues to have abdominal pain. No open wounds or joint swellings. D enies any diarrhea. Review of Systems: General: fever HEENT: no new visual disturbance Respiratory: No cough, sputum, hemoptysis or shortness of breath Cardiovascular: No chest pain, syncope Gastrointestinal: No nausea, vomiting or diarrhea. Abdominal pain + Genitourinary: No dysuria or hematuria Musculoskeletal: No new or worsening neck pain or back pain Neurologic: No headaches, seizures Hematologic: No easy bruising or bleeding Endocrine: No night sweats or acute weight loss Skin: negative for rash, jaundice Psychiatric: No suicidal or homicidal ideation Past History Past Medical History: hypertension, hyperlipidemia Past Surgical History: Other (back) Social history: alcohol abuse Family history: no significant family history Medications and Allergies Allergies Allergy/AdvReac Type Severity Reaction Status Date / Time No Known Allergies Allergy Unverified 08/15/19 14:45 Home Medications Medication Instructions Recorded Confirmed Last Taken Type AtorvaSTATin [Lipitor] 40 mg PO QHS 08/16/19 08/16/19 Unknown History amLODIPine [Norvasc] 10 mg PO DAILY 08/16/19 08/16/19 Unknown History Active Meds: Active Medications Acetaminophen (Tylenol) 650 mg PO Q4H PRN PRN Reason: Pain, Mild (1-3) Last Admin: 08/21/19 06:05 Dose: 650 mg Documented by: Albuterol (Proventil) 2.5 mg IH Q3HRT PRN PRN Reason: Shortness Of Breath Amlodipine Besylate (Amlodipine) 10 mg PO DAILY [facility] Last Admin: 08/21/19 10:25 Dose: 10 mg Documented by: Chlorpromazine HCl (Thorazine) 50 mg PO Q6H PRN PRN Reason: Hiccups Last Admin: 08/19/19 22:15 Dose: 50 mg Documented by: Dextrose (D50w (25gm) Syringe) 0 ml IV Q30MIN PRN; Protocol PRN Reason: Hypoglycemia Heparin Sodium (Porcine) (Heparin) 5,000 unit SUB-Q Q12HR [facility] Last Admin: 08/21/19 11:09 Dose: 5,000 unit Documented by: Sodium Chloride (Nacl 0.9% 1000 Ml) 1,000 mls @ 75 mls/hr IV DIRECT LUZ Last Admin: 08/21/19 11:21 Dose: 150 mls/hr Documented by: Ceftriaxone Sodium (Rocephin/Ns 2 Gm/100 Ml) 2 gm in 100 mls @ 200 mls/hr IV Q24HR [facility]; Protocol Last Admin: 08/21/19 09:10 Dose: 200 mls/hr Documented by: Ibuprofen (Ibuprofen) 600 mg PO Q6H PRN PRN Reason: Pain, Mild (1-3) Last Admin: 08/21/19 13:49 Dose: 600 mg Documented by: Insulin Human Isoph/Insulin Regular (Humulin 70/30) 12 unit SUB-Q BIDDIAB [facility] Last Admin: 08/21/19 09:04 Dose: 12 unit Documented by: Insulin Human Lispro (Humalog) 0 unit SUB-Q ACHS [facility]; Protocol Last Admin: 08/21/19 12:57 Dose: 3 unit Documented by: Lorazepam (Ativan) 2 mg IV Q1HR PRN PRN Reason: CIWA-Ar 8-15 Last Admin: 08/20/19 22:23 Dose: 2 mg Documented by: Lorazepam (Ativan) 4 mg IV Q1HR PRN PRN Reason: CIWA-Ar 16-25 Last Admin: 08/17/19 22:49 Dose: 4 mg Documented by: Lorazepam (Ativan) 4 mg IV Q15MIN PRN PRN Reason: CIWA-Ar >25 Multivitamins (Theragran Tab) 1 each PO QDAY [facility] Last Admin: 08/21/19 11:10 Dose: 1 each Documented by: Pantoprazole Sodium (Protonix) 40 mg PO DAILY [facility] Last Admin: 08/21/19 11:09 Dose: 40 mg Documented by: Sodium Chloride (Sodium Chloride Flush Syringe 10 Ml) 10 ml IV BID [facility] Last Admin: 08/21/19 11:10 Dose: 10 ml Documented by: Sodium Chloride (Sodium Chloride Flush Syringe 10 Ml) 10 ml IV PRN PRN PRN Reason: LINE FLUSH Physical Examination - Physical Exam Narrative exam: Physical Exam: Constitutional: Alert, cooperative. No acute distress Head, Ears, Nose: Normocephalic, atraumatic. External ears, nose normal Eyes: Conjunctivae/corneas clear. No icterus. No ptosis. Neck: Supple, no meningeal signs Oral: no thrush Cardiovascular: S1, S2 normal. Respiratory: Good air entry, clear to auscultation bilaterally GI: Soft, diffuse tenderness; bowel sounds hypo. no peritoneal signs Musculoskeletal: No pedal edema, no cyanosis. Skin: No rash or abscess Hem/Lymphatic: No palpable cervical or supraclavicular nodes. No lymphangitis Psych: Mood ok. Affect normal Neurological: Awake, alert, oriented. No gross abnormality - Constitutional Vitals: Vital Signs Temp Pulse Resp BP Pulse Ox 101.1 F H 118 H 24 161/103 95 08/21/19 12:46 08/21/19 12:46 08/21/19 12:46 08/21/19 12:46 08/21/19 12:46 Temperature -Last 24 Hours Temperature 101.1 F Temperature 100.5 F Temperature 99.2 F Temperature 102.5 F Results - Labs CBC & Chem 7: 08/21/19 05:30 08/21/19 05:30 Labs: Abnormal lab results 08/20/19 08/20/19 08/21/19 Range/Units 17:07 21:38 05:30 WBC 12.3 H (4.5-11.0) K/mm3 RBC 3.57 L (3.65-5.03) M/mm3 Hgb 10.6 L (11.8-15.2) gm/dl Hct 32.2 L (35.5-45.6) % RDW 15.5 H (13.2-15.2) % Lymph % (Auto) 9.7 L (13.4-35.0) % [place] % (Auto) 9.1 H (0.0-7.3) % [place] # 1.1 H (0.0-0.8) K/mm3 Seg Neutrophils % 80.5 H (40.0-70.0) % Seg Neutrophils # 9.9 H (1.8-7.7) K/mm3 Potassium (3.6-5.0) mmol/L Carbon Dioxide (22-30) mmol/L BUN (9-20) mg/dL Glucose (75-100) mg/dL POC Glucose 163 H 135 H (70-105) Calcium (8.4-10.2) mg/dL AST (5-40) units/L Albumin (3.9-5) g/dL Lipase (13-60) units/L 08/21/19 08/21/19 08/21/19 Range/Units 05:30 07:47 11:30 WBC (4.5-11.0) K/mm3 RBC (3.65-5.03) M/mm3 Hgb (11.8-15.2) gm/dl Hct (35.5-45.6) % RDW (13.2-15.2) % Lymph % (Auto) (13.4-35.0) % [place] % (Auto) (0.0-7.3) % [place] # (0.0-0.8) K/mm3 Seg Neutrophils % (40.0-70.0) % Seg Neutrophils # (1.8-7.7) K/mm3 Potassium 3.4 L (3.6-5.0) mmol/L Carbon Dioxide 19 L (22-30) mmol/L BUN 5 L (9-20) mg/dL Glucose 196 H (75-100) mg/dL POC Glucose 187 H 217 H (70-105) Calcium 8.2 L (8.4-10.2) mg/dL AST 58 H (5-40) units/L Albumin 3.2 L (3.9-5) g/dL Lipase 70 H (13-60) units/L - Imaging and Cardiology Chest x-ray: report reviewed, image reviewed (on admission, no pneumonia) CT scan - pelvis: report reviewed, image reviewed (peripancreatic inflammation and fluid without discrete drainable fluid collection) Assessment and Plan Cultures: 08/15/2019 urine culture: usual skin ruby 08/15/2019 blood culture: no growth 08/19/2019 blood culture: No growth 08/19/2019 urine culture: no significant growth 08/20/2019 blood culture: in process A/P: 38-year-old male with hypertension, obesity hypoventilation syndrome, alcohol dependence admitted with acute pancreatitis: #Fever: likely from acute pancreatitis. CT shows ongoing pancreatic inflammation and peripancreatic fluid collections, not drainable. No necrosis or pseudocyst seen. No pneumonia on CXR. Blood cultures negative. #Acute alcoholic pancreatitis: management per primary. Alcohol cessation advised. Recs: Ceftriaxone discontinued Continue treatment for acute pancreatitis Will follow. d/w Dr. Xin Hanna MD, FACP [facility] C: [phone] O: [phone] F: [phone]
[2019-08-21] MEDS: LORazepam 2 MG/ML VIAL IV PRN (22:51)
[2019-08-22] MEDS: IBUPROFEN 600 MG TAB PO PRN ×2 (05:12→14:13)
[2019-08-22] MEDS: INSULIN NPH/REGULAR 70/30 INJ SUB-Q SCH ×2 (08:00→17:15)
[2019-08-22] MEDS: INSULIN LISPRO 100 UNIT/ML SUB-Q SCH ×4 (09:24→23:41)
[2019-08-22 10:15] LABS: Basophils % (Auto) 0.3 % (0.0-1.8); Eosinophils # (Auto) 0.1 K/mm3 (0.0-0.4); Eosinophils % (Auto) 0.4 % (0.0-4.3); Hematocrit 31.2 % (35.5-45.6); Hemoglobin 10.3 gm/dl (11.8-15.2); Lymphocytes # (Auto) 1.2 K/mm3 (1.2-5.4); Lymphocytes % (Auto) 8.4 % (13.4-35.0); Mean Corpuscular HGB Conc 33 % (32-34); Mean Corpuscular Volume 90 fl (84-94); Monocytes % (Auto) 6.7 % (0.0-7.3); Platelet Count 506 K/mm3 (140-440); Red Blood Count 3.49 M/mm3 (3.65-5.03); Red Cell Distribution Width 15.9 % (13.2-15.2)
[2019-08-22 10:34] LABS: BUN/Creatinine Ratio 6; Blood Urea Nitrogen 5 mg/dL (9-20); Calcium 8.4 mg/dL (8.4-10.2); Hemolysis Index 5
--- NOTE | 2019-08-22 11:02 | Gastroenterology Progress Note ---
Assessment and Plan GI: pt w/ alcohol pancreatitis initially improving but now fevers and increase WBC - repeat ct scan w/ mild worsening inflammation compared to previous - ID input noted - basic pancreatitis management as discussed w/ pt including NPO, IV fluids etc - will check CRP and follow labs - start PO based on progress - will review ct scan - will follow Subjective Date of service: 08/22/19 Principal diagnosis: elevated LFTs, abd pain Interval history: - pt reports abdominal pain only with deep breathing and overall feels ok. Wants to eat and also wants to leave state Objective - Constitutional Vitals: Temp Pulse Resp BP Pulse Ox 100.6 F H 119 H 20 164/105 95 08/22/19 04:49 08/22/19 04:49 08/22/19 04:49 08/22/19 04:49 08/22/19 04:49 General appearance: no acute distress - EENT Eyes: PERRL - Respiratory Respiratory: bilateral: CTA - Cardiovascular Rhythm: regular Heart Sounds: Present: S1 & S2 - Gastrointestinal General gastrointestinal: Present: soft, non-tender, non-distended - Labs CBC & Chem 7: 08/22/19 09:32 08/22/19 09:32 Labs: Laboratory Results - last 24 hr 08/21/19 08/21/19 08/21/19 11:30 16:46 21:51 WBC RBC Hgb Hct MCV MCH MCHC RDW Plt Count Lymph % (Auto) [place] % (Auto) Eos % (Auto) Baso % (Auto) Lymph # [place] # Eos # Baso # Seg Neutrophils % Seg Neutrophils # Sodium Potassium Chloride Carbon Dioxide Anion Gap BUN Creatinine Estimated GFR BUN/Creatinine Ratio Glucose POC Glucose 217 H 132 H 221 H Calcium 08/22/19 08/22/19 08/22/19 08:04 09:32 09:32 WBC 14.7 H RBC 3.49 L Hgb 10.3 L Hct 31.2 L MCV 90 MCH 29 MCHC 33 RDW 15.9 H Plt Count 506 H Lymph % (Auto) 8.4 L [place] % (Auto) 6.7 Eos % (Auto) 0.4 Baso % (Auto) 0.3 Lymph # 1.2 [place] # 1.0 H Eos # 0.1 Baso # 0.0 Seg Neutrophils % 84.2 H Seg Neutrophils # 12.4 H Sodium 139 Potassium 4.0 Chloride 101.7 Carbon Dioxide 22 Anion Gap 19 BUN 5 L Creatinine 0.8 Estimated GFR > 60 BUN/Creatinine Ratio 6 Glucose 179 H POC Glucose 187 H Calcium 8.4
--- NOTE | 2019-08-22 11:33 | Progress Note ---
Assessment and Plan Assessment and plan: --Acute pancreatitis Status: Acute Rpt CT abdomen Slight increase in peripancreatic inflammation and fluid appreciate GI evaluation today, Patient has persistent fevers, Continues to have Abdominal pain --Persistent fevers; Secondary to acute pancreatitis Cultures negative to date ID evaluation noted and appreciated DCed antibiotics -- Alcohol abuse Status: Acute on CIWA protocol,no withdrawal symptoms Strongly advised to quit alcohol use --SIRS (systemic inflammatory response syndrome) Status: Acute off antibiotics. Secondary to acute pancreatitis ,-- Obesity BMI 33.6 Status: Acute Advised weight reduction --ERINN ; vasomotor nephropathy IV fluids, resolved --Hematuria: Resolved Urology evaluation noted and appreciated Cleared for discharge --DKA (diabetic ketoacidoses) Status: Acute , Improved Check sliding scale coverage ADA diet D/c on Novolin 70/30 sq 16 BID --Metabolic Acidosis Status: Acute IV fluid resuscitation therapy, Closely monitor --DVT prophylaxis Status: Acute SCD , prophylactic heparin Monitor closely and adjust management as needed Follow ID evaluation and recommendation Plan of care is reviewed with the patient and his nurse History Interval history: Patient seen and examined medical records Reviewed Continues to have left-sided abdominal pain and Low-grade fever and worsening WBC count Patient is nothing by mouth on IV fluids and supportive care Feels better anxious to go home Vital signs reviewed Hospitalist Physical - Constitutional Vitals: Temp Pulse Resp BP Pulse Ox 100.6 F H 119 H 20 164/105 95 08/22/19 04:49 08/22/19 04:49 08/22/19 04:49 08/22/19 04:49 08/22/19 04:49 General appearance: Present: no acute distress, well-nourished, obese, other (Febrile) - EENT Eyes: Present: PERRL, EOM intact - Neck Neck: Present: supple, normal ROM - Respiratory Respiratory effort: normal Respiratory: bilateral: diminished, negative: rales, rhonchi, wheezing - Cardiovascular Rhythm: regular Heart Sounds: Present: S1 & S2 - Extremities Extremities: no ischemia, No edema - Abdominal General gastrointestinal: soft, tender (left-sided ,no guarding no rigidity) - Integumentary Integumentary: Present: clear, warm - Psychiatric Psychiatric: appropriate mood/affect, cooperative - Neurologic Neurologic: moves all extremities Results - Labs CBC & Chem 7: 08/22/19 09:32 08/22/19 09:32 Labs: Laboratory Last Values WBC 14.7 K/mm3 (4.5-11.0) H 08/22/19 09:32 RBC 3.49 M/mm3 (3.65-5.03) L 08/22/19 09:32 Hgb 10.3 gm/dl (11.8-15.2) L 08/22/19 09:32 Hct 31.2 % (35.5-45.6) L 08/22/19 09:32 MCV 90 fl (84-94) 08/22/19 09:32 MCH 29 pg (28-32) 08/22/19 09:32 MCHC 33 % (32-34) 08/22/19 09:32 RDW 15.9 % (13.2-15.2) H 08/22/19 09:32 Plt Count 506 K/mm3 (140-440) H 08/22/19 09:32 Lymph % (Auto) 8.4 % (13.4-35.0) L 08/22/19 09:32 [place] % (Auto) 6.7 % (0.0-7.3) 08/22/19 09:32 Eos % (Auto) 0.4 % (0.0-4.3) 08/22/19 09:32 Baso % (Auto) 0.3 % (0.0-1.8) 08/22/19 09:32 Lymph # 1.2 K/mm3 (1.2-5.4) 08/22/19 09:32 [place] # 1.0 K/mm3 (0.0-0.8) H 08/22/19 09:32 Eos # 0.1 K/mm3 (0.0-0.4) 08/22/19 09:32 Baso # 0.0 K/mm3 (0.0-0.1) 08/22/19 09:32 Add Manual Diff Complete 08/18/19 05:38 Total Counted 100 08/18/19 05:38 Seg Neutrophils % 84.2 % (40.0-70.0) H 08/22/19 09:32 Seg Neuts % (Manual) 85.0 % (40.0-70.0) H 08/18/19 05:38 Band Neutrophils % 0 % 08/18/19 05:38 Lymphocytes % (Manual) 6.0 % (13.4-35.0) L 08/18/19 05:38 Reactive Lymphs % (Man) 0 % 08/18/19 05:38 Monocytes % (Manual) 9.0 % (0.0-7.3) H 08/18/19 05:38 Eosinophils % (Manual) 0 % (0.0-4.3) 08/18/19 05:38 Basophils % (Manual) 0 % (0.0-1.8) 08/18/19 05:38 Metamyelocytes % 0 % 08/18/19 05:38 Myelocytes % 0 % 08/18/19 05:38 Promyelocytes % 0 % 08/18/19 05:38 Blast Cells % 0 % 08/18/19 05:38 Nucleated RBC % 2.0 % (0.0-0.9) H 08/18/19 05:38 Seg Neutrophils # 12.4 K/mm3 (1.8-7.7) H 08/22/19 09:32 Seg Neutrophils # Man 8.0 K/mm3 (1.8-7.7) H 08/18/19 05:38 Band Neutrophils # 0.0 K/mm3 08/18/19 05:38 Lymphocytes # (Manual) 0.6 K/mm3 (1.2-5.4) L 08/18/19 05:38 Abs React Lymphs (Man) 0.0 K/mm3 08/18/19 05:38 Monocytes # (Manual) 0.8 K/mm3 (0.0-0.8) 08/18/19 05:38 Eosinophils # (Manual) 0.0 K/mm3 (0.0-0.4) 08/18/19 05:38 Basophils # (Manual) 0.0 K/mm3 (0.0-0.1) 08/18/19 05:38 Metamyelocytes # 0.0 K/mm3 08/18/19 05:38 Myelocytes # 0.0 K/mm3 08/18/19 05:38 Promyelocytes # 0.0 K/mm3 08/18/19 05:38 Blast Cells # 0.0 K/mm3 08/18/19 05:38 WBC Morphology Not Reportable 08/18/19 05:38 Hypersegmented Neuts Not Reportable 08/18/19 05:38 Hyposegmented Neuts Not Reportable 08/18/19 05:38 Hypogranular Neuts Not Reportable 08/18/19 05:38 Smudge Cells Not Reportable 08/18/19 05:38 Toxic Granulation Not Reportable 08/18/19 05:38 Toxic Vacuolation Not Reportable 08/18/19 05:38 Dohle Bodies Not Reportable 08/18/19 05:38 Pelger-Huet Anomaly Not Reportable 08/18/19 05:38 Mann Rods Not Reportable 08/18/19 05:38 Platelet Estimate Consistent w auto 08/18/19 05:38 Clumped Platelets Not Reportable 08/18/19 05:38 Plt Clumps, EDTA Not Reportable 08/18/19 05:38 Large Platelets Not Reportable 08/18/19 05:38 Giant Platelets Not Reportable 08/18/19 05:38 Platelet Satelliting Not Reportable 08/18/19 05:38 Plt Morphology Comment Not Reportable 08/18/19 05:38 RBC Morphology Not Reportable 08/18/19 05:38 Dimorphic RBCs Not Reportable 08/18/19 05:38 Polychromasia Not Reportable 08/18/19 05:38 Hypochromasia Not Reportable 08/18/19 05:38 Poikilocytosis Not Reportable 08/18/19 05:38 Anisocytosis Not Reportable 08/18/19 05:38 Microcytosis Not Reportable 08/18/19 05:38 Macrocytosis Not Reportable 08/18/19 05:38 Spherocytes Not Reportable 08/18/19 05:38 Pappenheimer Bodies Not Reportable 08/18/19 05:38 Sickle Cells Not Reportable 08/18/19 05:38 Target Cells Not Reportable 08/18/19 05:38 Tear Drop Cells Not Reportable 08/18/19 05:38 Ovalocytes Not Reportable 08/18/19 05:38 Helmet Cells Not Reportable 08/18/19 05:38 [place] Bodies Not Reportable 08/18/19 05:38 [place] Rings Not Reportable 08/18/19 05:38 [place] Cells Not Reportable 08/18/19 05:38 Bite Cells Not Reportable 08/18/19 05:38 Crenated Cell Not Reportable 08/18/19 05:38 Elliptocytes Few 08/18/19 05:38 Acanthocytes (Spur) Not Reportable 08/18/19 05:38 Rouleaux Not Reportable 08/18/19 05:38 Hemoglobin C Crystals Not Reportable 08/18/19 05:38 Schistocytes Few 08/18/19 05:38 Malaria parasites Not Reportable 08/18/19 05:38 [place] Bodies Not Reportable 08/18/19 05:38 Hem Pathologist Commnt No 08/18/19 05:38 PT 14.5 Sec. (12.2-14.9) 08/16/19 14:39 INR 1.11 (0.87-1.13) 08/16/19 14:39 APTT 26.3 Sec. (24.2-36.6) 08/15/19 16:10 VBG pH 7.423 (7.320-7.420) H 08/15/19 16:15 Sodium 139 mmol/L (137-145) 08/22/19 09:32 Potassium 4.0 mmol/L (3.6-5.0) 08/22/19 09:32 Chloride 101.7 mmol/L (98-107) 08/22/19 09:32 Carbon Dioxide 22 mmol/L (22-30) 08/22/19 09:32 Anion Gap 19 mmol/L 08/22/19 09:32 BUN 5 mg/dL (9-20) L 08/22/19 09:32 Creatinine 0.8 mg/dL (0.8-1.5) 08/22/19 09:32 Estimated GFR > 60 ml/min 08/22/19 09:32 BUN/Creatinine Ratio 6 % 08/22/19 09:32 Glucose 179 mg/dL (75-100) H 08/22/19 09:32 POC Glucose 187 (70-105) H 08/22/19 08:04 Lactic Acid 1.60 mmol/L (0.7-2.0) 08/15/19 22:38 Calcium 8.4 mg/dL (8.4-10.2) 08/22/19 09:32 Phosphorus 1.70 mg/dL (2.5-4.5) L 08/15/19 22:38 Magnesium 2.50 mg/dL (1.7-2.3) H 08/15/19 22:38 Total Bilirubin 0.80 mg/dL (0.1-1.2) 08/21/19 05:30 Direct Bilirubin 0.7 mg/dL (0-0.2) H 08/16/19 14:39 Indirect Bilirubin 1.1 mg/dL 08/16/19 14:39 AST 58 units/L (5-40) H 08/21/19 05:30 ALT 25 units/L (7-56) 08/21/19 05:30 Alkaline Phosphatase 109 units/L (35-129) 08/21/19 05:30 Ammonia 54.0 umol/L (25-60) 08/18/19 05:38 Total Creatine Kinase 517 units/L (55-170) H 08/15/19 16:10 Troponin T < 0.010 ng/mL (0.00-0.029) 08/15/19 15:23 C-Reactive Protein 26.70 mg/dL (0.00-1.30) H 08/19/19 09:43 Total Protein 6.6 g/dL (6.3-8.2) 08/21/19 05:30 Albumin 3.2 g/dL (3.9-5) L 08/21/19 05:30 Albumin/Globulin Ratio 0.9 % 08/21/19 05:30 Triglycerides 96 mg/dL (2-149) 08/16/19 14:39 Amylase 35 units/L (27-131) 08/21/19 05:30 Lipase 70 units/L (13-60) H 08/21/19 05:30 Urine Color [place] (Yellow) 08/15/19 16:00 Urine Turbidity Slightly-cloudy (Clear) 08/15/19 16:00 Urine pH 5.0 (5.0-7.0) 08/15/19 16:00 Ur Specific [place] 1.027 (1.003-1.030) 08/15/19 16:00 Urine Protein 100 mg/dl mg/dL (Negative) 08/15/19 16:00 Urine Glucose (UA) >=500 mg/dL (Negative) 08/15/19 16:00 Urine Ketones Neg mg/dL (Negative) 08/15/19 16:00 Urine Blood Lg (Negative) 08/15/19 16:00 Urine Nitrite Neg (Negative) 08/15/19 16:00 Urine Bilirubin Neg (Negative) 08/15/19 16:00 Urine Urobilinogen < 2.0 mg/dL (<2.0) 08/15/19 16:00 Ur Leukocyte Esterase Neg (Negative) 08/15/19 16:00 Urine WBC (Auto) 17.0 /HPF (0.0-6.0) H 08/15/19 16:00 Urine RBC (Auto) 43.0 /HPF (0.0-6.0) 08/15/19 16:00 U Epithel Cells (Auto) 2.0 /HPF (0-13.0) 08/15/19 16:00 Hyaline Casts 3 /LPF 08/15/19 16:00 Urine Mucus Few /HPF 08/15/19 16:00 Hepatitis A IgM Ab Non-reactive (NonReactive) 08/16/19 14:39 Hep Bs Antigen Non-reactive (Negative) 08/16/19 14:39 Hep B Core IgM Ab Non-reactive (NonReactive) 08/16/19 14:39 Hepatitis C Antibody Non-reactive (NonReactive) 08/16/19 14:39 Active Medications - Current Medications Current Medications: Generic Name Dose Route Start Last Admin Trade Name Freq PRN Reason Stop Dose Admin Acetaminophen 650 mg 08/20/19 18:00 08/21/19 06:05 Tylenol PO 650 mg Q4H PRN Administration Pain, Mild (1-3) Albuterol 2.5 mg 08/15/19 18:14 Proventil IH Q3HRT PRN Shortness Of Breath Amlodipine Besylate 10 mg 08/16/19 13:00 08/21/19 10:25 Amlodipine PO 10 mg DAILY LUZ Administration Chlorpromazine HCl 50 mg 08/19/19 18:09 08/19/19 22:15 Thorazine PO 50 mg Q6H PRN Administration Hiccups Dextrose 0 ml 08/15/19 16:10 D50w (25gm) Syringe IV Q30MIN PRN Hypoglycemia Protocol Heparin Sodium (Porcine) 5,000 unit 08/15/19 22:00 08/21/19 22:44 Heparin SUB-Q 5,000 unit Q12HR LUZ Administration Sodium Chloride 1,000 mls @ 75 mls/hr 08/21/19 09:00 08/21/19 23:46 Nacl 0.9% 1000 Ml IV 75 mls/hr DIRECT LUZ Administration Ibuprofen 600 mg 08/18/19 11:52 08/22/19 05:12 Ibuprofen PO 600 mg Q6H PRN Administration Pain, Mild (1-3) Insulin Human Isoph/Insulin Regular 12 unit 08/16/19 17:00 08/21/19 18:39 Humulin 70/30 SUB-Q Not Given BIDDIAB LUZ Insulin Human Lispro 0 unit 08/18/19 22:00 08/22/19 09:24 Humalog SUB-Q 2 unit ACHS LUZ Administration Protocol Lorazepam 2 mg 08/15/19 16:35 08/21/19 22:51 Ativan IV 2 mg Q1HR PRN Administration CIWA-Ar 8-15 Lorazepam 4 mg 08/15/19 16:35 08/17/19 22:49 Ativan IV 4 mg Q1HR PRN Administration CIWA-Ar 16-25 Lorazepam 4 mg 08/15/19 16:35 Ativan IV Q15MIN PRN CIWA-Ar >25 Multivitamins 1 each 08/19/19 10:00 08/21/19 11:10 Theragran Tab PO 1 each QDAY LUZ Administration Pantoprazole Sodium 40 mg 08/19/19 10:00 08/21/19 11:09 Protonix PO 40 mg DAILY LUZ Administration Sodium Chloride 10 ml 08/15/19 22:00 08/21/19 22:44 Sodium Chloride Flush Syringe 10 Ml IV 10 ml BID LUZ Administration Sodium Chloride 10 ml 08/15/19 18:14 Sodium Chloride Flush Syringe 10 Ml IV PRN PRN LINE FLUSH Nutrition/Malnutrition Assess - Dietary Evaluation Nutrition/Malnutrition Findings: Nutrition Notes Start: 08/17/19 12:12 Freq: Status: Active Protocol: Document 08/21/19 14:54 LM (Rec: 08/21/19 14:55 LM [id number]) Nutrition Notes Need for Assessment generated from: Low BMI Initial or Follow up Brief Note Height 6 ft 8 in Weight 138.6 kg [place] Body Weight (kg) 102.72 BMI 33.5 Subjective/Other Information Screen for low BMI. Pt wt corrected. Nutrition Intervention Revisit per MD consult or patient Sign Off request:
[2019-08-22 12:30] LABS: Hemoglobin 10.7 gm/dl (11.8-15.2); Mean Corpuscular HGB Conc 34 % (32-34); Mean Corpuscular Volume 89 fl (84-94); Platelet Count 523 K/mm3 (140-440); Red Blood Count 3.59 M/mm3 (3.65-5.03); Red Cell Distribution Width 15.5 % (13.2-15.2)
[2019-08-22] MEDS: HEPARIN 5,000 UNIT/1 ML VIAL SUB-Q SCH ×2 (12:42→21:47)
[2019-08-22] MEDS: PANTOPRAZOLE 40 MG TAB PO SCH (12:42)
[2019-08-22] MEDS: MULTIVITAMINS ,THERAPEUTIC TAB PO SCH (12:43)
[2019-08-22] MEDS: amLODIPine 10 MG TAB PO SCH (12:43)
[2019-08-22 12:49] LABS: Alanine Aminotransferase 27 units/L (7-56); Albumin 2.9 g/dL (3.9-5); BUN/Creatinine Ratio 6; Blood Urea Nitrogen 5 mg/dL (9-20); Calcium 8.5 mg/dL (8.4-10.2); Hemolysis Index 22
[2019-08-22] MEDS: SODIUM CHLORIDE 0.9% 1000 ML 1,000 ML IV SCH (14:14)
[2019-08-22] MEDS: ACETAMINOPHEN 325 MG TAB PO PRN (22:11)
[2019-08-23] MEDS: SODIUM CHLORIDE 0.9% 1000 ML 1,000 ML IV SCH (04:00)
[2019-08-23 05:02] LABS: Basophils # (Auto) 0.1 K/mm3 (0.0-0.1); Basophils % (Auto) 0.6 % (0.0-1.8); Eosinophils # (Auto) 0.1 K/mm3 (0.0-0.4); Eosinophils % (Auto) 0.3 % (0.0-4.3); Hematocrit 34.1 % (35.5-45.6); Lymphocytes # (Auto) 1.5 K/mm3 (1.2-5.4); Lymphocytes % (Auto) 9.1 % (13.4-35.0); Mean Corpuscular HGB Conc 32 % (32-34); Mean Corpuscular Volume 90 fl (84-94); Monocytes % (Auto) 6.3 % (0.0-7.3); Platelet Count 552 K/mm3 (140-440); Red Blood Count 3.78 M/mm3 (3.65-5.03); Red Cell Distribution Width 15.8 % (13.2-15.2)
[2019-08-23 05:23] LABS: BUN/Creatinine Ratio 8; Blood Urea Nitrogen 7 mg/dL (9-20); Calcium 8.5 mg/dL (8.4-10.2); Hemolysis Index 0
[2019-08-23] MEDS: ACETAMINOPHEN 325 MG TAB PO PRN (06:01)
[2019-08-23] MEDS: INSULIN LISPRO 100 UNIT/ML SUB-Q SCH (10:03)
[2019-08-23] MEDS: MULTIVITAMINS ,THERAPEUTIC TAB PO SCH (10:04)
[2019-08-23] MEDS: PANTOPRAZOLE 40 MG TAB PO SCH (10:04)
[2019-08-23] MEDS: amLODIPine 10 MG TAB PO SCH (10:04)
[2019-08-23] MEDS: HEPARIN 5,000 UNIT/1 ML VIAL SUB-Q SCH (10:05)
[2019-08-23] MEDS: INSULIN NPH/REGULAR 70/30 INJ SUB-Q SCH (10:05)
[2019-08-23] MEDS: IBUPROFEN 600 MG TAB PO PRN (12:55)
[2019-08-23 12:56] VITALS: BP 146/101
--- NOTE | 2019-08-23 12:56 | Progress Note ---
Assessment and Plan Cultures: 08/15/2019 urine culture: usual skin ruby 08/15/2019 blood culture: no growth 08/19/2019 blood culture: No growth 08/19/2019 urine culture: no significant growth 08/20/2019 blood culture: no growth thus far A/P: 38-year-old male with hypertension, obesity hypoventilation syndrome, alcohol dependence admitted with acute pancreatitis: #Fever: likely from acute pancreatitis. Last CT showed ongoing pancreatic inflammation and peripancreatic fluid collections, not drainable. No necrosis or pseudocyst seen. No pneumonia on CXR. Blood cultures negative. #Acute alcoholic pancreatitis: management per primary. Alcohol cessation advised. Recs: - Patient wants to get discharged, not safe for discharge given rising WBC and persistent fever. He is still NPO and on IV Fluids. Patient and family want to go to his hometown and considering leaving against medical advice. - Fevers + with increasing WBC. Continue supportive care for now. If WBC continues to rise, would need a repeat CT abdomen pelvis with IV contrast to eval for pancreatitis complications such as infected pseudocyst, necrosis, etc. No antibiotics for now D/w Dr. Xin Hanna MD, FACP [facility] ([facility] C: [phone] O: [phone] F: [phone] Subjective Date of service: 08/23/19 Principal diagnosis: elevated LFTs, abd pain Interval history: Persistently febrile. Fever of 102 F yesterday. Remains NPO. Abdominal pain is improving. Objective - Exam Narrative Exam: Physical Exam: Constitutional: Alert, cooperative. No acute distress Head, Ears, Nose: Normocephalic, atraumatic. External ears, nose normal Eyes: Conjunctivae/corneas clear. No icterus. No ptosis. Neck: Supple, no meningeal signs Oral: no thrush Cardiovascular: S1, S2 normal. Respiratory: Good air entry, clear to auscultation bilaterally GI: Soft, mild diffuse tenderness; bowel sounds hypo. No peritoneal signs Musculoskeletal: No pedal edema, no cyanosis. Skin: No rash or abscess Hem/Lymphatic: No palpable cervical or supraclavicular nodes. No lymphangitis Psych: Mood ok. Affect normal Neurological: Awake, alert, oriented. No gross abnormality - Constitutional Vitals: Vital Signs Temp Pulse Resp BP Pulse Ox 99.3 F 123 H 20 150/96 96 08/23/19 07:15 08/23/19 05:35 08/23/19 05:35 08/23/19 05:33 08/23/19 05:33 Temperature -Last 24 Hours Temperature 99.3 F Temperature 101.5 F Temperature 100.4 F Temperature 102.6 F Temperature 99.6 F - Labs CBC & Chem 7: 08/23/19 04:42 08/23/19 04:42 Labs: Abnormal lab results 08/22/19 08/22/19 08/23/19 Range/Units 16:28 22:25 04:42 WBC (4.5-11.0) K/mm3 Hgb (11.8-15.2) gm/dl Hct (35.5-45.6) % RDW (13.2-15.2) % Plt Count (140-440) K/mm3 Lymph % (Auto) (13.4-35.0) % [place] # (0.0-0.8) K/mm3 Seg Neutrophils % (40.0-70.0) % Seg Neutrophils # (1.8-7.7) K/mm3 BUN (9-20) mg/dL Glucose (75-100) mg/dL POC Glucose 150 H 158 H (70-105) C-Reactive Protein 24.20 H (0.00-1.30) mg/dL 08/23/19 08/23/19 08/23/19 Range/Units 04:42 04:42 08:23 WBC 16.2 H (4.5-11.0) K/mm3 Hgb 11.0 L (11.8-15.2) gm/dl Hct 34.1 L (35.5-45.6) % RDW 15.8 H (13.2-15.2) % Plt Count 552 H (140-440) K/mm3 Lymph % (Auto) 9.1 L (13.4-35.0) % [place] # 1.0 H (0.0-0.8) K/mm3 Seg Neutrophils % 83.7 H (40.0-70.0) % Seg Neutrophils # 13.6 H (1.8-7.7) K/mm3 BUN 7 L (9-20) mg/dL Glucose 167 H (75-100) mg/dL POC Glucose 173 H (70-105) C-Reactive Protein (0.00-1.30) mg/dL 08/23/19 Range/Units 12:12 WBC (4.5-11.0) K/mm3 Hgb (11.8-15.2) gm/dl Hct (35.5-45.6) % RDW (13.2-15.2) % Plt Count (140-440) K/mm3 Lymph % (Auto) (13.4-35.0) % [place] # (0.0-0.8) K/mm3 Seg Neutrophils % (40.0-70.0) % Seg Neutrophils # (1.8-7.7) K/mm3 BUN (9-20) mg/dL Glucose (75-100) mg/dL POC Glucose 147 H (70-105) C-Reactive Protein (0.00-1.30) mg/dL
--- NOTE | 2019-08-23 14:28 | Gastroenterology Progress Note ---
Assessment and Plan GI: alcohol pancreatitis - discussed not ready for d/c - will follow if still in hospital Subjective Date of service: 08/23/19 Principal diagnosis: elevated LFTs, abd pain Interval history: - reports wanting to leave Objective - Constitutional Vitals: Temp Pulse Resp BP Pulse Ox 100.3 F H 117 H 22 146/101 95 08/23/19 12:03 08/23/19 12:03 08/23/19 12:03 08/23/19 12:03 08/23/19 12:03 General appearance: no acute distress - EENT Eyes: PERRL - Respiratory Respiratory: bilateral: CTA - Cardiovascular Rhythm: regular Heart Sounds: Present: S1 & S2 - Gastrointestinal General gastrointestinal: Present: soft, non-tender - Labs CBC & Chem 7: 08/23/19 04:42 08/23/19 04:42 Labs: Laboratory Results - last 24 hr 08/22/19 08/22/19 08/23/19 16:28 22:25 04:42 WBC RBC Hgb Hct MCV MCH MCHC RDW Plt Count Lymph % (Auto) [place] % (Auto) Eos % (Auto) Baso % (Auto) Lymph # [place] # Eos # Baso # Seg Neutrophils % Seg Neutrophils # Sodium Potassium Chloride Carbon Dioxide Anion Gap BUN Creatinine Estimated GFR BUN/Creatinine Ratio Glucose POC Glucose 150 H 158 H Calcium C-Reactive Protein 24.20 H 08/23/19 08/23/19 08/23/19 04:42 04:42 08:23 WBC 16.2 H RBC 3.78 Hgb 11.0 L Hct 34.1 L MCV 90 MCH 29 MCHC 32 RDW 15.8 H Plt Count 552 H Lymph % (Auto) 9.1 L [place] % (Auto) 6.3 Eos % (Auto) 0.3 Baso % (Auto) 0.6 Lymph # 1.5 [place] # 1.0 H Eos # 0.1 Baso # 0.1 Seg Neutrophils % 83.7 H Seg Neutrophils # 13.6 H Sodium 141 Potassium 3.6 Chloride 101.2 Carbon Dioxide 23 Anion Gap 20 BUN 7 L Creatinine 0.9 Estimated GFR > 60 BUN/Creatinine Ratio 8 Glucose 167 H POC Glucose 173 H Calcium 8.5 C-Reactive Protein 08/23/19 12:12 WBC RBC Hgb Hct MCV MCH MCHC RDW Plt Count Lymph % (Auto) [place] % (Auto) Eos % (Auto) Baso % (Auto) Lymph # [place] # Eos # Baso # Seg Neutrophils % Seg Neutrophils # Sodium Potassium Chloride Carbon Dioxide Anion Gap BUN Creatinine Estimated GFR BUN/Creatinine Ratio Glucose POC Glucose 147 H Calcium C-Reactive Protein
--- NOTE | 2019-08-23 19:05 | Discharge Summary ---
Providers - Providers Date of Admission: 08/15/19 18:14 Date of discharge: 08/23/19 Attending physician: DANIEL LEARY 08/15/19 16:10 Consult to Physician [CONS] Routine Comment: Consulting Provider: WOODY SPIVEY Physician Instructions: Reason For Exam: sepsis ? choleangitis 08/16/19 12:18 Consult to Dietitian/Nutrition [CONS] Routine Physician Instructions: Reason For Exam: Reason for Consult: Pt needs oral supplement 08/17/19 17:34 Consult to Physician [CONS] Routine Comment: Consulting Provider: CHRIS FRANCE Physician Instructions: Reason For Exam: Hematuria 08/20/19 15:41 Consult to Physician [CONS] Routine Comment: Consulting Provider: ZOEY FERRELL Physician Instructions: Reason For Exam: persistant fevers/Ac pancreatitis [facility] Condition: Serious Hospital course: --Acute pancreatitis Status: Acute Rpt CT abdomen Slight increase in peripancreatic inflammation and fluid appreciate GI evaluation today, Patient has persistent fevers, Continues to have Abdominal pain --Persistent fevers; Secondary to acute pancreatitis Cultures negative to date ID evaluation noted and appreciated DCed antibiotics -- Alcohol abuse Status: Acute on CIWA protocol,no withdrawal symptoms Strongly advised to quit alcohol use --SIRS (systemic inflammatory response syndrome) Status: Acute off antibiotics. Secondary to acute pancreatitis ,-- Obesity BMI 33.6 Status: Acute Advised weight reduction --ERINN ; vasomotor nephropathy IV fluids, resolved --Hematuria: Resolved Urology evaluation noted and appreciated Cleared for discharge --DKA (diabetic ketoacidoses) Status: Acute , Improved Check sliding scale coverage ADA diet D/c on Novolin 70/30 sq 16 BID --Metabolic Acidosis Status: Acute IV fluid resuscitation therapy, Closely monitor --DVT prophylaxis Status: Acute SCD , prophylactic heparin Disposition: DC-07 LEFT AGAINST MED ADVICE Exam - Constitutional Vitals: Temp Pulse Resp BP Pulse Ox 100.3 F H 117 H 22 146/101 95 08/23/19 12:03 08/23/19 12:03 08/23/19 12:03 08/23/19 12:03 08/23/19 12:03 [facility] Care Provider[facility] - 7 Days
== END 2019-08-23 13:05 | disposition left against medical advice (07) | DRG 438 ==
LOC: ED 14:29 → IMCU 18:14 → 3A 08-17 10:11
PROVIDERS: ADMIT Internal Medicine; ATTEND Internal Medicine
DX: K85.20 Alcohol induced acute pancreatitis without necrosis or infection (principal); E10.10 Type 1 diabetes mellitus with ketoacidosis without coma; N17.0 Acute kidney failure with tubular necrosis; R65.10 Systemic inflammatory response syndrome (SIRS) of non-infectious origin without acute organ dysfunction; E66.2 Morbid (severe) obesity with alveolar hypoventilation; I10 Essential (primary) hypertension; E78.00 Pure hypercholesterolemia, unspecified; Z68.33 Body mass index [BMI] 33.0-33.9, adult; Z71.3 Dietary counseling and surveillance; F10.10 Alcohol abuse, uncomplicated; Y90.9 Presence of alcohol in blood, level not specified; E78.5 Hyperlipidemia, unspecified; R31.9 Hematuria, unspecified; Z53.29 Procedure and treatment not carried out because of patient's decision for other reasons
CPT/HCPCS: 36415; 71046; 74176; 74177; 76705; 80048; 80053; 80074; 80076; 81001; 82140; 82150; 82247; 82248; 82550; 82805; 82962; 83690; 83735; 84100; 84478; 84484; 85007; 85025; 85027; 85610; 85730; 86140; 87040; 87086; 93005; 93010; 94760; G0378; A9270-GY; C9113; J0696; J1644; J1815; J2060; J2270; J2405; J2543; J3411; J7030; J7050; Q0161; Q9967